=== PATIENT | male | born 1965 | race American Indian/Alaskan Native ===

== ENCOUNTER 2017-08-01 00:40 | Inpatient (IN) | payer OTHER ==
[2017-08-01] MEDS ORDERED: HEPARIN 10,000 UNITS/10 ML IV ONE (00:45)
[2017-08-01] MEDS ORDERED: PLAVIX PO ONE (00:45)
[2017-08-01] MEDS ORDERED: PLAVIX ONE ×3 (00:50→02:10)
--- NOTE | 2017-08-01 00:50 | Emergency Department Report ---
HPI - General Chief Complaint: Chest Pain Time Seen by Provider: 08/01/17 00:45 - HPI HPI: 51-year-old -[place] male presents to the ED with chest pain, he described his chest pain, onset 1 hour prior to evaluation while at rest, Location: Left-sided, Radiation: none, Severity now (0-10): 10, Severity at worst (0-10): 10 Duration: 5 minutes characterized as: Pressure. The pain is relieved some with aspirin and nitroglycerin and his pain is currently a 5 out of 10. Patient denies exertional pain, patient denies pleuritic pain. Patient also complains of associated symptoms, such as nausea, diaphoresis, shortness of breath, but no vomiting. Patient has a history of hypertension, hyperlipidemia but is noncompliant with medications. ED Past Medical Hx - Family History Family history: hypertension - Social History Smoking Status: Current Every Day Smoker - Medications Home Medications: Home Medications Medication Instructions Recorded Confirmed Last Taken Type No Known Home Medications [No 08/01/17 08/01/17 Unknown History Reported Home Medications] ED Review of Systems ROS: Stated complaint: CP Other details as noted in HPI Physical Exam - Physical Exam Physical Exam: Physical Exam: - General Limitations: No Limitations General appearance: alert, severe distress - Head Head exam: Present: atraumatic, normocephalic - Eye Eye exam: Present: normal appearance - ENT ENT exam: Present: mucous membranes moist - Neck Neck exam: Present: normal inspection - Respiratory Respiratory exam: Present: normal lung sounds bilaterally. Absent: respiratory distress - Cardiovascular Cardiovascular Exam: Present: normal rhythm, normal rate. Absent: systolic murmur, diastolic murmur, rubs, gallop - GI/Abdominal GI/Abdominal exam: Present: soft, normal bowel sounds - Extremities Exam Extremities exam: Present: normal inspection - Back Exam Back exam: Present: normal inspection - Neurological Exam Neurological exam: Present: alert, oriented X3 - Psychiatric Psychiatric exam: normal affect and mood - Skin Skin exam: Present: warm, dry, intact, normal color. Absent: rash ED Course - Reevaluation(s) Reevaluation #1: 08/01/17 06:44 Code STEMI called ED Medical Decision Making - Lab Data Result diagrams: 08/01/17 00:40 08/01/17 00:40 Critical care attestation.: If time is entered above; I have spent that time in minutes in the direct care of this critically ill patient, excluding procedure time. ED Disposition Clinical Impression: Acute myocardial infarction due to right coronary artery occlusion, ST elevation CT (STEMI) Disposition: 09 OP ADMIT IP TO THIS HOSP Is pt being admited?: Yes Does the pt Need Aspirin: Yes Condition: Stable
[2017-08-01 00:56] LABS: Eosinophils % (Auto) 0.2 % (0.0-4.3); Hemoglobin 13.5 gm/dl (11.8-15.2); Mean Corpuscular HGB Conc 32 % (32-34); Mean Corpuscular Hemoglobin 27 pg (28-32); Mean Corpuscular Volume 84 fl (84-94); Platelet Count 309 K/mm3 (140-440); Red Blood Count 5.01 M/mm3 (3.65-5.03); Red Cell Distribution Width 14.2 % (13.2-15.2); White Blood Count 14.1 K/mm3 (4.5-11.0)
[2017-08-01 01:05] LABS: INR 1.08 (0.87-1.13)
[2017-08-01 01:06] LABS: Partial Thromboplastin Time 26.9 Sec. (24.2-36.6)
[2017-08-01] MEDS ORDERED: NACL 0.9% 1000 ML 1,000 ML ONE (01:13)
[2017-08-01] MEDS ORDERED: TRIDIL DRIP 50MG/250ML 0 MG/0 ML BOTTLE ONE (01:19)
[2017-08-01] MEDS ORDERED: HEPARIN/NS 5000 UNIT/500ML(CATH LAB) 1,000 ML IR ONE (01:19)
[2017-08-01] MEDS ORDERED: VERSED ONE (01:19)
[2017-08-01] MEDS ORDERED: SUBLIMAZE ONE (01:20)
[2017-08-01] MEDS ORDERED: CALAN ONE (01:20)
[2017-08-01] MEDS ORDERED: XYLOCAINE 2% INFILTRATI ONE (01:21)
[2017-08-01] MEDS ORDERED: NITROGLYCERIN SYRINGE 3 ML ONE (01:21)
[2017-08-01] MEDS ORDERED: NACL 0.9% 0 ML ONE (01:22)
[2017-08-01] MEDS: HEPARIN 10,000 UNITS/10 ML ONE ×2 (01:28→01:35)
[2017-08-01] MEDS ORDERED: NACL 0.9% 250ML 250 ML ONE (01:34)
[2017-08-01] MEDS ORDERED: REOPRO ONE ×2 (01:34→01:38)
[2017-08-01] MEDS ORDERED: ATROPINE 0.1% (CARDIAC) ONE (01:35)
[2017-08-01] MEDS ORDERED: NEO SYNEPHRINE ONE (01:36)
[2017-08-01] MEDS ORDERED: NACL 0.9% 100 ML ONE (01:36)
[2017-08-01] MEDS ORDERED: CORDARONE IV ONE (01:53)
[2017-08-01 02:05] LABS: Alanine Aminotransferase 58 units/L (7-56); Albumin 4.2 g/dL (3.9-5); Albumin/Globulin Ratio 1.3 %; Alkaline Phosphatase 82 units/L (35-129); Anion Gap 28 mmol/L; Blood Urea Nitrogen 12 mg/dL (9-20); Carbon Dioxide 18 mmol/L (22-30); Chloride 99.2 mmol/L (98-107); Glucose 147 mg/dL (75-100); Potassium 3.7 mmol/L (3.6-5.0); Sodium 141 mmol/L (137-145); Total Protein 7.5 g/dL (6.3-8.2)
[2017-08-01] MEDS ORDERED: ZOFRAN IV PRN (02:10)
[2017-08-01] MEDS ORDERED: ULTRAM PO PRN (02:10)
[2017-08-01] MEDS ORDERED: NORCO 5/325 PO PRN (02:10)
--- NOTE | 2017-08-01 02:21 | History and Physical Report ---
History of Present Illness Date of examination: 08/01/17 Date of admission: 08/01/2017 Chief complaint: chest pain History of present illness: This is a 51-year-old -[place] male with history of smoking who presented with chest pain starting around 11:00 after argument with the neighbor patient said the pain was pressure-like radiating down to left arm with mild nausea no vomiting mild diaphoresis EMS was called showed an acute inferior wall OK patient was taken back to the cardiac [facility] for emergent PCI patient received heparin and Plavix nitroglycerin patient had successful PCI of the mid RCA with a drug-eluting resolution 3.5 x 15 mm with normal function patient is currently chest pain-free. During intervention patient did have V. fib and was shocked 3 times and received a amiodarone bolus Past History Past Medical History: denies: No medical history Past Surgical History: Other (right hand surgery after accident at work) Social history: smoking. denies: alcohol abuse, prescription drug abuse Family history: denies: no significant family history Medications and Allergies Allergies Allergy/AdvReac Type Severity Reaction Status Date / Time No Known Allergies Allergy Unverified 08/01/17 00:41 Home Medications Medication Instructions Recorded Confirmed Last Taken Type No Known Home Medications [No 08/01/17 08/01/17 Unknown History Reported Home Medications] Review of Systems All systems: negative (except HPI) Physical Examination Vital Signs Pulse BP Pulse Ox 47 L 113/69 98 08/01/17 00:41 08/01/17 00:41 08/01/17 00:41 General appearance: mild distress HEENT: Positive: PERRL, Mucus Membranes Moist Neck: Positive: neck supple, trachea midline Cardiac: Positive: Reg Rate and Rhythm, S1/S2, Audible Murmur Lungs: Positive: clear to auscultation, Normal Breath Sounds Neuro: Positive: Grossly Intact Abdomen: Positive: Soft, Active Bowel Sounds. Negative: Tender, Distended Male genitourinary: Positive: normal Skin: Positive: Clear Incision: Cardiac Cath Site (right radial dressing no hematoma) Musculoskeletal: No Pain, Normal Range of Motion Extremities: Present: normal. Absent: edema Results 08/01/17 00:40 08/01/17 00:40 Cardiac Enzymes 08/01/17 Range/Units 00:40 AST 49 H (5-40) units/L Coagulation 08/01/17 Range/Units 00:40 PT 13.9 (12.2-14.9) Sec. INR 1.08 (0.87-1.13) APTT 26.9 (24.2-36.6) Sec. CBC 08/01/17 Range/Units 00:40 WBC 14.1 H (4.5-11.0) K/mm3 RBC 5.01 (3.65-5.03) M/mm3 Hgb 13.5 (11.8-15.2) gm/dl Hct 42.0 (35.5-45.6) % Plt Count 309 (140-440) K/mm3 Lymph # 2.5 (1.2-5.4) K/mm3 [place] # 0.5 (0.0-0.8) K/mm3 Eos # 0.0 (0.0-0.4) K/mm3 Baso # 0.1 (0.0-0.1) K/mm3 Comprehensive Metabolic Panel 08/01/17 Range/Units 00:40 Sodium 141 (137-145) mmol/L Potassium 3.7 (3.6-5.0) mmol/L Chloride 99.2 (98-107) mmol/L Carbon Dioxide 18 L (22-30) mmol/L BUN 12 (9-20) mg/dL Creatinine 1.5 (0.8-1.5) mg/dL Glucose 147 H (75-100) mg/dL Calcium 9.0 (8.4-10.2) mg/dL AST 49 H (5-40) units/L ALT 58 H (7-56) units/L Alkaline Phosphatase 82 (35-129) units/L Total Protein 7.5 (6.3-8.2) g/dL Albumin 4.2 (3.9-5) g/dL - Imaging and Cardiology Cardiac cath: report reviewed (left main patent LAD large Are patent with mild luminal irregularities diagonal one small patent circumflex medium caliber patent with mild GERD is going to OM1 onto which are small to being caliber patent RCA is a large dominant vessel mid 100% had a PCI of the mid RCA with drug-eluting was 3.5 x 15 mm at 20 rupa with normal LV function) EKG interpretations - Telemetry EKG Rhythm: Sinus Bradycardia (sinus bradycardia with ST elevations inferiorly with reciprocal changes posteriorly) Assessment and Plan This a 51-year-old gentleman acute myocardial infarction requiring PCI of the mid RCA drug-eluting stent 3 5 x 50 mm patient will be on aspirin and Plavix ReoPro and IV fluids patient is not on ranjith inhibitors or beta blockers secondary low blood pressure patient was shocked 3 times for V. fib arrest and given amiodarone bolus patient be monitored for arrhythmias patient replaced in CCU post-PCI care and DC radial dressing in 4 hours - Patient Problems (1) Acute myocardial infarction due to right coronary artery occlusion Current Visit: Yes Status: Acute (2) Acute diastolic heart failure Current Visit: Yes Status: Acute (3) Smoker Current Visit: Yes Status: Chronic (4) Hyperlipidemia Current Visit: Yes Status: Chronic Qualifiers: Hyperlipidemia type: mixed hyperlipidemia Qualified Code(s): E78.2 - Mixed hyperlipidemia (5) Acute respiratory failure Current Visit: Yes Status: Acute Qualifiers: Respiratory failure complication: hypoxia Qualified Code(s): J96.01 - Acute respiratory failure with hypoxia
[2017-08-01] MEDS ORDERED: NACL 0.9% 1000 ML 1,000 ML IV SCH (03:00)
[2017-08-01] MEDS ORDERED: REOPRO 9 MG in NACL 0.9% 250ML 245.5 ML IV SCH (03:00)
--- NOTE | 2017-08-01 03:07 | Cardiac Catherization Report ---
LEFT HEART CATHETERIZATION/PERCUTANEOUS INTERVENTIONAL REPORT CLINICAL INFORMATION: This is a 51-year-old gentleman who is a smoker, who presents with acute chest pain. EKG shows acute inferior wall VA. The patient was brought emergently back to the cardiac laborer beam house. Cardiac cath was done via the right radial approach, sterile technique, local anesthesia over 6-Emirati radial sheath inserted. Left system was engaged. PROCEDURE FINDINGS: Left system engaged with JL3.5 catheter. Left main is large caliber vessels that are patent. LAD is a large caliber vessel, it is patent with mild luminal irregularities from proximally and distally. Diagonal 1 is a small caliber vessel and is patent. Circumflex is a medium caliber vessel, is patent with mild luminal irregularities, bifurcates into a small to medium caliber. OM1 and OM2 are patent with mild to moderate luminal irregularities. RCA engaged with JR4 catheter. It has a high anterior takeoff with moderate to severe tortuosity, large caliber, proximal patent mid 100% right after small RV branch. PERCUTANEOUS CORONARY INTERVENTION OF THE RCA: 1. Engaged RCA with 6-Emirati AR mod catheter. 2. Crossed into the distal RCA with a short Langley wire. 3. Predilated with 2.5 x 12 mm balloon x 2 inflations restoring DANIELLE 3 flow. The patient went into V-fib and was shocked 3 times given amiodarone bolus. The patient maintained DANIELLE 3 flow, but there was heavy thrombus burden. ReoPro was given and IV heparin was used to maintain adequate ACT. 4. Unable to deliver a thrombectomy device secondary to guide support and also tortuosity of vessels. I used the 2.5 x 12 balloon to mechanically disrupt the thrombus. 5. Then stented the mid RCA with a drug-eluting Resolute 3.5 x 15 mm inflated at 20 atmospheres. 6. Excellent angiographic result. Continued DANIELLE 3 flow and no thrombus noted in the RCA or the PLV, mild thrombus noted into the PDA that was ballooned further with 2.5 x 12 balloon. 7. Residual thrombus was noted to the PDA, but continued maintained DANIELLE 3 flow. 8. Remove coronary wire. Multiple angiograms with excellent angiographic result. Good stent apposition and expansion noted. No dissection or perforation noted. 9. A 6-Emirati guiding catheter taken over guidewire, 6-Emirati radial sheath was discontinued. Radial dressing applied. No hematoma. No bleeding. The patient is chest pain free at the end of the case. SUMMARY: 1. Successful PCI of the mid RCA with a drug-eluting Resolute 3.5 x 15 mm at 20 atmospheres, thrombus burden was noted, unable to use thrombectomy device secondary to tortuosity, had mechanical with the balloon. The patient also received 300 mg Plavix prior to the case and 300 mg Plavix afterwards and Reopro for 12 hours. 2. Left main patent, LAD patent with mild luminal irregularities and circumflex and OM, patent with mild luminal irregularities. 3. Normal LV function. EF 55%. LVEDP of 26 mmHg, LV is 105. Aortic is 105/61. No significant gradient across the aortic valve on pullback. The patient will be admitted to the CCU for further care on Reopro and IV fluids. JOB# [id number] XUAN/COBY
[2017-08-01] MEDS ORDERED: LOPRESSOR PO SCH (10:00)
--- NOTE | 2017-08-01 10:43 | Progress Note ---
Assessment and Plan Obtain Magnesium level. Initiate beta av therapy. - Patient Problems (1) ST elevation [place] (STEMI) Current Visit: Yes Status: Acute Qualifiers: Involved coronary artery: right coronary artery Qualified Code(s): I21.11 - ST elevation (STEMI) myocardial infarction involving right coronary artery (2) Stented coronary artery Current Visit: Yes Status: Acute (3) NSVT (nonsustained ventricular tachycardia) Current Visit: Yes Status: Acute (4) CAD (coronary artery disease) Current Visit: Yes Status: Acute Qualifiers: Coronary Disease-Associated Artery/Lesion type: [place] artery [place] vs. transplanted heart: N Associated angina: A Subjective Date of service: 08/01/17 Principal diagnosis: Acute STEMI, CAD, s/p PCI, s/p Vfib arrest, NSVT Interval history: No chest pain. He had a run of nonsustained VT this morning. Objective Vital Signs Vital Signs Last Vital Signs Temp 98.5 F 08/01/17 07:38 Pulse 81 08/01/17 09:30 Resp 18 08/01/17 09:30 BP 143/97 08/01/17 09:30 Pulse Ox 98 08/01/17 09:30 - Physical Examination General: No Apparent Distress HEENT: Positive: EOMI, Normocephaly, Mucus Membranes Moist Neck: Positive: neck supple, trachea midline Cardiac: Positive: Reg Rate and Rhythm, S1/S2 Lungs: Positive: clear to auscultation Neuro: Positive: Grossly Intact Abdomen: Positive: Soft, Active Bowel Sounds. Negative: Tender, Distended Skin: Positive: Clear Incision: Cardiac Cath Site (right radial dressing no hematoma) Musculoskeletal: Normal Range of Motion Extremities: Present: normal. Absent: edema - Imaging and Cardiology Cardiac cath: report reviewed (left main patent LAD large Are patent with mild luminal irregularities diagonal one small patent circumflex medium caliber patent with mild GERD is going to OM1 onto which are small to being caliber patent RCA is a large dominant vessel mid 100% had a PCI of the mid RCA with drug-eluting was 3.5 x 15 mm at 20 rupa with normal LV function)
[2017-08-01 10:59] LABS: Basophils % (Auto) 0.4 % (0.0-1.8); Hematocrit 40.4 % (35.5-45.6); Hemoglobin 12.9 gm/dl (11.8-15.2); Mean Corpuscular HGB Conc 32 % (32-34); Mean Corpuscular Hemoglobin 26 pg (28-32); Mean Corpuscular Volume 83 fl (84-94); Platelet Count 286 K/mm3 (140-440); Red Blood Count 4.88 M/mm3 (3.65-5.03); Red Cell Distribution Width 14.5 % (13.2-15.2); White Blood Count 18.8 K/mm3 (4.5-11.0)
--- NOTE | 2017-08-01 11:04 | Consultation ---
History of Present Illness - Reason for Consult Consult date: 08/01/17 STEMI, ICU care Requesting physician: PAULIE KENNEY Past History Past Medical History: denies: No medical history Past Surgical History: Other (right hand surgery after accident at work) Social history: smoking. denies: alcohol abuse, prescription drug abuse Family history: denies: no significant family history Medications and Allergies Allergies Allergy/AdvReac Type Severity Reaction Status Date / Time No Known Allergies Allergy Unverified 08/01/17 00:41 Home Medications Medication Instructions Recorded Confirmed Last Taken Type No Known Home Medications [No 08/01/17 08/01/17 Unknown History Reported Home Medications] Active Meds: Active Medications Acetaminophen/Hydrocodone Bitart ([place] 5/325) 1 each PO Q6H PRN PRN Reason: Pain, Moderate (4-6) Aspirin (Baby Aspirin) 81 mg PO QDAY MURALI Atorvastatin Calcium (Lipitor) 80 mg PO QHS MURALI Clopidogrel Bisulfate (Plavix) 75 mg PO QDAY MURALI Abciximab 9 mg/ Sodium (Chloride) 250 mls @ 16.06 mls/hr IV DIRECT MURALI; 0.125 MCG/KG/MIN PRN Reason: Protocol Stop: 08/01/17 14:59 Sodium Chloride (Nacl 0.9% 1000 Ml) 1,000 mls @ 100 mls/hr IV DIRECT MURALI Stop: 08/01/17 12:59 Last Admin: 08/01/17 03:32 Dose: 100 mls/hr Metoprolol Tartrate (Lopressor) 25 mg PO Q6H MURALI Ondansetron HCl (Zofran) 4 mg IV Q8H PRN PRN Reason: N/V unrelieved by Reglan Tramadol HCl (Ultram) 50 mg PO Q4H PRN PRN Reason: Pain, Mild (1-3) Exam - Constitutional Vitals: Temp Pulse Resp BP Pulse Ox 98.5 F 81 18 143/97 98 08/01/17 07:38 08/01/17 09:30 08/01/17 09:30 08/01/17 09:30 08/01/17 09:30 Results - Labs CBC & Chem 7: 08/02/17 04:05 08/02/17 04:05 Labs: Abnormal lab results 08/01/17 Range/Units 10:42 WBC 18.8 H (4.5-11.0) K/mm3 MCV 83 L (84-94) fl MCH 26 L (28-32) pg Lymph % (Auto) 12.1 L (13.4-35.0) % [place] # 1.0 H (0.0-0.8) K/mm3 Seg Neutrophils % 82.4 H (40.0-70.0) % Seg Neutrophils # 15.5 H (1.8-7.7) K/mm3 Assessment and Plan 51 y/o male with STEMI, status post GAIL, now with arrhythmia 1. Follow up cardiology recs 2. Continue ICU monitoring 3. Will ask cards about BB therapy.
[2017-08-01] MEDS: BABY ASPIRIN PO SCH (11:43)
[2017-08-01] MEDS: LOPRESSOR PO SCH (11:43)
[2017-08-02] MEDS: LOPRESSOR PO SCH ×5 (03:16→21:04)
[2017-08-02 05:07] LABS: Basophils % (Auto) 0.9 % (0.0-1.8); Eosinophils % (Auto) 1.8 % (0.0-4.3); Hemoglobin 13.1 gm/dl (11.8-15.2); Mean Corpuscular HGB Conc 33 % (32-34); Mean Corpuscular Hemoglobin 27 pg (28-32); Mean Corpuscular Volume 83 fl (84-94); Platelet Count 270 K/mm3 (140-440); Red Blood Count 4.85 M/mm3 (3.65-5.03); Red Cell Distribution Width 14.3 % (13.2-15.2); White Blood Count 11.2 K/mm3 (4.5-11.0)
[2017-08-02 05:22] LABS: Creatine Kinase MB 175.4 ng/mL (0.0-4.0)
[2017-08-02 05:25] LABS: Alanine Aminotransferase 97 units/L (7-56); Albumin 3.7 g/dL (3.9-5); Albumin/Globulin Ratio 1.2 %; Alkaline Phosphatase 80 units/L (35-129); Anion Gap 19 mmol/L; BUN/Creatinine Ratio 12.72; Blood Urea Nitrogen 14 mg/dL (9-20); Calcium 8.6 mg/dL (8.4-10.2); Carbon Dioxide 22 mmol/L (22-30); Chloride 101.8 mmol/L (98-107); Glucose 115 mg/dL (75-100); Potassium 3.6 mmol/L (3.6-5.0); Sodium 139 mmol/L (137-145); Total Protein 6.8 g/dL (6.3-8.2)
[2017-08-02 05:37] LABS: Creatine Kinase 3425 units/L (55-170)
[2017-08-02 06:02] LABS: Cholesterol 199 mg/dL (50-199); HDL Cholesterol 39 mg/dL (40-59); LDL Cholesterol,Direct 121 mg/dL (50-130); Triglycerides 196 mg/dL (2-149)
--- NOTE | 2017-08-02 07:56 | XRay Report ---
AP CHEST: HISTORY: chest pain, recent cardiac catheterization AP view of the chest demonstrates a normal mediastinal and cardiac contour with clear lungs and normal bony and soft tissue structures. IMPRESSION: Unremarkable AP chest.
[2017-08-02 09:28] LABS: Creatine Kinase MB 112.3 ng/mL (0.0-4.0)
[2017-08-02] MEDS: BABY ASPIRIN PO SCH (10:37)
[2017-08-02] MEDS: PLAVIX PO SCH (10:37)
--- NOTE | 2017-08-02 10:52 | Progress Note ---
Assessment and Plan Transfer to telemetry unit. Continue current management. - Patient Problems (1) ST elevation [place] (STEMI) Current Visit: Yes Status: Acute Qualifiers: Involved coronary artery: right coronary artery Qualified Code(s): I21.11 - ST elevation (STEMI) myocardial infarction involving right coronary artery (2) Stented coronary artery Current Visit: Yes Status: Acute (3) NSVT (nonsustained ventricular tachycardia) Current Visit: Yes Status: Acute (4) CAD (coronary artery disease) Current Visit: Yes Status: Acute Qualifiers: Coronary Disease-Associated Artery/Lesion type: [place] artery [place] vs. transplanted heart: N Associated angina: A Subjective Date of service: 08/02/17 Principal diagnosis: Acute STEMI, CAD, s/p PCI, s/p Vfib arrest, NSVT Interval history: He had mild chest pain with coughing this morning. He mentioned a tinge of blood in the sputum. Objective Vital Signs Last Vital Signs Temp 97.9 F 08/02/17 04:00 Pulse 65 08/02/17 10:36 Resp 13 08/02/17 08:00 BP 116/70 08/02/17 10:36 Pulse Ox 99 08/02/17 08:00 - Physical Examination General: No Apparent Distress HEENT: Positive: EOMI, Normocephaly, Mucus Membranes Moist Neck: Positive: neck supple, trachea midline Cardiac: Positive: Reg Rate and Rhythm, S1/S2 Lungs: Positive: clear to auscultation Neuro: Positive: Grossly Intact Abdomen: Positive: Soft, Active Bowel Sounds. Negative: Tender, Distended Skin: Positive: Clear. Negative: Rash Incision: Cardiac Cath Site (right radial dressing no hematoma) Musculoskeletal: Normal Range of Motion Extremities: Present: normal. Absent: edema - Labs and Meds Cardiac Enzymes 08/02/17 08/02/17 Range/Units 04:05 08:44 AST 202 H (5-40) units/L CK-MB (CK-2) 175.4 H 112.3 H (0.0-4.0) ng/mL Lipids 08/02/17 Range/Units 04:05 Triglycerides 196 H (2-149) mg/dL Cholesterol 199 (50-199) mg/dL HDL Cholesterol 39 L (40-59) mg/dL Cholesterol/HDL Ratio 5.10 % CBC 09/11/17 09/12/17 Range/Units 10:42 04:05 WBC 18.8 H 11.2 H (4.5-11.0) K/mm3 RBC 4.88 4.85 (3.65-5.03) M/mm3 Hgb 12.9 13.1 (11.8-15.2) gm/dl Hct 40.4 40.0 (35.5-45.6) % Plt Count 286 270 (140-440) K/mm3 Lymph # 2.3 3.3 (1.2-5.4) K/mm3 [place] # 1.0 H 0.8 (0.0-0.8) K/mm3 Eos # 0.0 0.2 (0.0-0.4) K/mm3 Baso # 0.1 0.1 (0.0-0.1) K/mm3 Comprehensive Metabolic Panel 08/02/17 Range/Units 04:05 Sodium 139 (137-145) mmol/L Potassium 3.6 (3.6-5.0) mmol/L Chloride 101.8 (98-107) mmol/L Carbon Dioxide 22 (22-30) mmol/L BUN 14 (9-20) mg/dL Creatinine 1.1 (0.8-1.5) mg/dL Glucose 115 H (75-100) mg/dL Calcium 8.6 (8.4-10.2) mg/dL AST 202 H (5-40) units/L ALT 97 H (7-56) units/L Alkaline Phosphatase 80 (35-129) units/L Total Protein 6.8 (6.3-8.2) g/dL Albumin 3.7 L (3.9-5) g/dL - Imaging and Cardiology Cardiac cath: report reviewed (left main patent LAD large Are patent with mild luminal irregularities diagonal one small patent circumflex medium caliber patent with mild GERD is going to OM1 onto which are small to being caliber patent RCA is a large dominant vessel mid 100% had a PCI of the mid RCA with drug-eluting was 3.5 x 15 mm at 20 rupa with normal LV function) - Telemetry EKG Rhythm: Sinus Rhythm
--- NOTE | 2017-08-02 11:18 | Progress Note ---
Assessment and Plan 51 y/o male with STEMI, status post GAIL, now with arrhythmia, stable 1. Follow up cardiology recs 2. Appears stable for transfer to telemetry Subjective Date of service: 08/02/17 Principal diagnosis: Acute STEMI, CAD, s/p PCI, s/p Vfib arrest, NSVT Interval history: No acute events. No further chest pressure. Still some pain from leads where he was shocked. Had some asymptomatic bradycardia yesterday. Otherwise stable. Objective - Constitutional Vitals: Vital Signs - 12hr 08/01/17 08/01/17 08/02/17 23:31 23:45 00:00 Temperature 97.8 F Pulse Rate 67 67 66 Pulse Rate [ 61 From Monitor] Respiratory 17 17 17 Rate Blood Pressure 126/83 126/83 120/75 O2 Sat by Pulse 98 98 98 Oximetry 08/02/17 08/02/17 08/02/17 00:15 00:31 00:45 Temperature Pulse Rate 65 67 68 Pulse Rate [ From Monitor] Respiratory 17 17 16 Rate Blood Pressure 120/75 120/75 120/75 O2 Sat by Pulse 98 98 97 Oximetry 08/02/17 08/02/17 08/02/17 01:01 01:15 01:31 Temperature Pulse Rate 66 67 69 Pulse Rate [ From Monitor] Respiratory 14 15 18 Rate Blood Pressure 115/66 115/66 115/66 O2 Sat by Pulse 99 97 97 Oximetry 08/02/17 08/02/17 08/02/17 01:45 02:01 02:15 Temperature Pulse Rate 69 67 69 Pulse Rate [ From Monitor] Respiratory 17 12 16 Rate Blood Pressure 115/66 115/66 115/66 O2 Sat by Pulse 97 98 97 Oximetry 08/02/17 08/02/17 08/02/17 02:31 02:45 03:00 Temperature Pulse Rate 64 70 64 Pulse Rate [ From Monitor] Respiratory 13 13 11 L Rate Blood Pressure 115/66 115/66 123/76 O2 Sat by Pulse 98 97 98 Oximetry 08/02/17 08/02/17 08/02/17 03:15 03:16 03:31 Temperature Pulse Rate 66 31 L 63 Pulse Rate [ From Monitor] Respiratory 13 16 Rate Blood Pressure 123/76 123/76 O2 Sat by Pulse 97 97 Oximetry 08/02/17 08/02/17 08/02/17 03:45 04:00 04:15 Temperature 97.9 F Pulse Rate 64 65 63 Pulse Rate [ 55 L From Monitor] Respiratory 15 16 16 Rate Blood Pressure 123/76 108/61 108/61 O2 Sat by Pulse 97 97 97 Oximetry 08/02/17 08/02/17 08/02/17 04:31 04:45 05:00 Temperature Pulse Rate 64 64 62 Pulse Rate [ From Monitor] Respiratory 16 16 15 Rate Blood Pressure 108/61 108/61 103/64 O2 Sat by Pulse 97 98 97 Oximetry 08/02/17 08/02/17 08/02/17 05:15 05:31 05:45 Temperature Pulse Rate 80 79 66 Pulse Rate [ From Monitor] Respiratory 16 Rate Blood Pressure 103/64 108/61 108/61 O2 Sat by Pulse Oximetry 08/02/17 08/02/17 08/02/17 06:01 06:15 06:31 Temperature Pulse Rate 62 61 63 Pulse Rate [ From Monitor] Respiratory 16 12 Rate Blood Pressure 103/64 103/64 103/64 O2 Sat by Pulse Oximetry 08/02/17 08/02/17 08/02/17 06:45 07:01 07:15 Temperature Pulse Rate 62 77 58 L Pulse Rate [ From Monitor] Respiratory 15 12 15 Rate Blood Pressure 103/64 128/89 128/89 O2 Sat by Pulse 97 100 Oximetry 08/02/17 08/02/17 08/02/17 07:31 07:45 08:00 Temperature 97.4 F L Pulse Rate 60 54 L 55 L Pulse Rate [ From Monitor] Respiratory 14 13 13 Rate Blood Pressure 128/89 128/89 118/74 O2 Sat by Pulse 100 100 99 Oximetry 08/02/17 08/02/17 08:11 10:36 Temperature Pulse Rate 55 L 65 Pulse Rate [ From Monitor] Respiratory Rate Blood Pressure 116/70 O2 Sat by Pulse Oximetry General appearance: Present: no acute distress - EENT Eyes: PERRL, EOM intact ENT: hearing intact, clear oral mucosa, dentition normal - Neck Neck: supple, normal ROM - Respiratory Respiratory effort: normal Respiratory: bilateral: CTA - Cardiovascular Rhythm: regular Heart Sounds: Present: S1 & S2 - Labs CBC & Chem 7: 08/02/17 04:05 08/02/17 04:05 Labs: Abnormal lab results 08/02/17 08/02/17 08/02/17 Range/Units 04:05 04:05 08:44 WBC 11.2 H (4.5-11.0) K/mm3 MCV 83 L (84-94) fl MCH 27 L (28-32) pg Glucose 115 H (75-100) mg/dL AST 202 H (5-40) units/L ALT 97 H (7-56) units/L Total Creatine Kinase 3425 H 3035 H (55-170) units/L CK-MB (CK-2) 175.4 H 112.3 H (0.0-4.0) ng/mL CK-MB (CK-2) Rel Index 5.1 H (0-4) Troponin T 4.490 H* D 3.930 H* (0.00-0.029) ng/mL Albumin 3.7 L (3.9-5) g/dL Triglycerides 196 H (2-149) mg/dL HDL Cholesterol 39 L (40-59) mg/dL
[2017-08-02 12:15] LABS: Basophils % (Auto) 1.1 % (0.0-1.8); Eosinophils % (Auto) 2.6 % (0.0-4.3); Hematocrit 39.5 % (35.5-45.6); Hemoglobin 13.1 gm/dl (11.8-15.2); Mean Corpuscular HGB Conc 33 % (32-34); Mean Corpuscular Hemoglobin 27 pg (28-32); Mean Corpuscular Volume 82 fl (84-94); Platelet Count 254 K/mm3 (140-440); Red Blood Count 4.82 M/mm3 (3.65-5.03); Red Cell Distribution Width 14.4 % (13.2-15.2); White Blood Count 10.1 K/mm3 (4.5-11.0)
[2017-08-02 19:46] LABS: Creatine Kinase MB 50.2 ng/mL (0.0-4.0)
[2017-08-03 05:43] LABS: Hematocrit 41.2 % (35.5-45.6); Hemoglobin 13.2 gm/dl (11.8-15.2)
[2017-08-03 08:26] VITALS: BP 117/76
[2017-08-03] MEDS: LOPRESSOR PO SCH (09:45)
[2017-08-03] MEDS: PLAVIX PO SCH (09:45)
[2017-08-03] MEDS: BABY ASPIRIN PO SCH (09:45)
--- NOTE | 2017-08-03 09:51 | Progress Note ---
Assessment and Plan pt has no chest pain and is being discharged, spoke about smoking cessation, compliance with meds importance of asa and plavix. - Patient Problems (1) Acute myocardial infarction due to right coronary artery occlusion Current Visit: Yes Status: Acute (2) Acute diastolic heart failure Current Visit: Yes Status: Acute (3) Smoker Current Visit: Yes Status: Chronic (4) Hyperlipidemia Current Visit: Yes Status: Chronic Qualifiers: Qualified Code(s): E78.2 - Mixed hyperlipidemia (5) Acute respiratory failure Current Visit: Yes Status: Acute Qualifiers: Qualified Code(s): J96.01 - Acute respiratory failure with hypoxia Subjective Date of service: 08/03/17 Principal diagnosis: Acute STEMI, CAD, s/p PCI, s/p Vfib arrest, NSVT Interval history: pt is chest pain free Objective Vital Signs Temp Pulse Resp Resp BP Pulse Ox 08/03/17 09:45 71 117/76 08/03/17 08:23 98.0 F 71 18 117/76 97 08/03/17 04:54 98.8 F 67 19 130/76 97 08/03/17 00:25 98.5 F 67 22 114/70 94 08/02/17 22:00 63 08/02/17 19:27 98.4 F 69 18 118/77 96 08/02/17 16:09 98.4 F 56 L 16 109/71 100 08/02/17 13:00 56 L 114/69 93 08/02/17 12:51 56 L 11 L 117/74 100 08/02/17 12:00 97.8 F 57 L 11 L 117/74 88 08/02/17 11:00 68 13 116/72 91 08/02/17 10:36 65 116/70 08/02/17 10:00 63 13 12 116/70 98 - Physical Examination General: No Apparent Distress HEENT: Positive: EOMI, Normocephaly, Mucus Membranes Moist Neck: Positive: neck supple, trachea midline Cardiac: Positive: Reg Rate and Rhythm Lungs: Positive: clear to auscultation Neuro: Positive: Grossly Intact Abdomen: Positive: Soft, Active Bowel Sounds. Negative: Tender, Distended Skin: Positive: Clear. Negative: Rash Incision: Cardiac Cath Site (right radial dressing no hematoma) Musculoskeletal: Normal Range of Motion Extremities: Present: normal. Absent: edema - Labs and Meds Cardiac Enzymes 08/02/17 Range/Units 19:09 CK-MB (CK-2) 50.2 H (0.0-4.0) ng/mL CBC 08/02/17 08/03/17 Range/Units 11:51 05:02 WBC 10.1 (4.5-11.0) K/mm3 RBC 4.82 (3.65-5.03) M/mm3 Hgb 13.1 13.2 (11.8-15.2) gm/dl Hct 39.5 41.2 (35.5-45.6) % Plt Count 254 261 (140-440) K/mm3 Lymph # 2.7 (1.2-5.4) K/mm3 [place] # 0.8 (0.0-0.8) K/mm3 Eos # 0.3 (0.0-0.4) K/mm3 Baso # 0.1 (0.0-0.1) K/mm3 - Imaging and Cardiology Echo: report reviewed Cardiac cath: report reviewed (left main patent LAD large Are patent with mild luminal irregularities diagonal one small patent circumflex medium caliber patent with mild GERD is going to OM1 onto which are small to being caliber patent RCA is a large dominant vessel mid 100% had a PCI of the mid RCA with drug-eluting was 3.5 x 15 mm at 20 rupa with normal LV function) - Telemetry EKG Rhythm: Sinus Rhythm (no vtach)
--- NOTE | 2017-08-03 09:51 | Progress Note ---
Assessment and Plan Currently stable cardiac status. Pt may discharge home on current regimen, including ASA, plavix, statin and lopressor. Follow up in our [place] office with Dr. Baugh on 08/15/2017 @ 9:15AM. The patient has been seen in conjunction with Dr. Baugh who agrees with the assessment and plan of care. - Patient Problems (1) ST elevation [place] (STEMI) Current Visit: Yes Status: Acute Qualifiers: Involved coronary artery: right coronary artery Qualified Code(s): I21.11 - ST elevation (STEMI) myocardial infarction involving right coronary artery (2) Stented coronary artery Current Visit: Yes Status: Acute (3) NSVT (nonsustained ventricular tachycardia) Current Visit: Yes Status: Acute (4) CAD (coronary artery disease) Current Visit: Yes Status: Acute Qualifiers: Coronary Disease-Associated Artery/Lesion type: [place] artery [place] vs. transplanted heart: N Associated angina: A Subjective Date of service: 08/03/17 Principal diagnosis: Acute STEMI, CAD, s/p PCI, s/p Vfib arrest, NSVT Interval history: no complaints. VSS. Objective Last Vital Signs Temp 98.0 F 08/03/17 08:23 Pulse 71 08/03/17 09:45 Resp 18 08/03/17 08:23 BP 117/76 08/03/17 09:45 Pulse Ox 97 08/03/17 08:23 - Physical Examination General: No Apparent Distress HEENT: Positive: EOMI, Normocephaly, Mucus Membranes Moist Neck: Positive: neck supple, trachea midline Cardiac: Positive: Reg Rate and Rhythm, S1/S2 Lungs: Positive: clear to auscultation Neuro: Positive: Grossly Intact Abdomen: Positive: Soft, Active Bowel Sounds. Negative: Tender, Distended Skin: Positive: Clear. Negative: Rash Incision: Cardiac Cath Site (right radial dressing no hematoma) Musculoskeletal: Normal Range of Motion Extremities: Present: normal. Absent: edema - Labs and Meds Cardiac Enzymes 08/02/17 Range/Units 19:09 CK-MB (CK-2) 50.2 H (0.0-4.0) ng/mL CBC 08/02/17 08/03/17 Range/Units 11:51 05:02 WBC 10.1 (4.5-11.0) K/mm3 RBC 4.82 (3.65-5.03) M/mm3 Hgb 13.1 13.2 (11.8-15.2) gm/dl Hct 39.5 41.2 (35.5-45.6) % Plt Count 254 261 (140-440) K/mm3 Lymph # 2.7 (1.2-5.4) K/mm3 [place] # 0.8 (0.0-0.8) K/mm3 Eos # 0.3 (0.0-0.4) K/mm3 Baso # 0.1 (0.0-0.1) K/mm3 - Imaging and Cardiology Echo: report reviewed (EF 50-55%, mild MR, mild TR) Cardiac cath: report reviewed (left main patent LAD large Are patent with mild luminal irregularities diagonal one small patent circumflex medium caliber patent with mild GERD is going to OM1 onto which are small to being caliber patent RCA is a large dominant vessel mid 100% had a PCI of the mid RCA with drug-eluting was 3.5 x 15 mm at 20 rupa with normal LV function)
--- NOTE | 2017-08-03 10:44 | Discharge Summary ---
Providers - Providers Date of Admission: 08/01/17 02:10 Date of discharge: 08/03/17 Attending physician: PAULIE BAUGH Pulmonary/CCU Primary care physician: [employer] Hospitalization Condition: Stable Hospital course: Pt presented on 08/01/2017 with c/o chest pain. He was diagnosed with acute inferior STEMI and [facility] coronary angiography. He underwent LHC with successful PCI of RCA. Post-STEMI echo showed normal LV function with basal inferiolateral, basal inferior, mid inferolateral, and apical lateral wall hypokinesis. Pt remained clinically and hemodynamically stable throughout his recovery and is cleared for discharge home today. Pt may discharge home on current regimen, including ASA, plavix, statin and lopressor. Follow up in our [place] office with Dr. Baugh on 08/15/2017 @ 9:15AM. Disposition: DC-01 TO HOME OR SELFCARE - Discharge Diagnoses (1) ST elevation [place] (STEMI) Status: Acute Qualifiers: Involved coronary artery: right coronary artery Qualified Code(s): I21.11 - ST elevation (STEMI) myocardial infarction involving right coronary artery (2) CAD (coronary artery disease) Status: Chronic Qualifiers: Coronary Disease-Associated Artery/Lesion type: [place] artery [place] vs. transplanted heart: N Associated angina: A (3) Stented coronary artery Status: Acute (4) NSVT (nonsustained ventricular tachycardia) Status: Acute (5) Smoker Status: Chronic (6) Hyperlipidemia Status: Chronic Qualifiers: Hyperlipidemia type: mixed hyperlipidemia Qualified Code(s): E78.2 - Mixed hyperlipidemia Core Measure Documentation - Palliative Care Palliative Care/ Comfort Measures: Not Applicable - Core Measures Any of the following diagnoses?: acute [place] - Acute TX Discharge Requirements Aspirin at discharge: Yes DANIELLE/ARB for LVSD if EF <40%: Not Applicable Beta av at discharge: Yes Statin for LDL = or >100 mg/dl on DC: Yes Exam - Constitutional Vitals: Temp Pulse Resp BP Pulse Ox 98.0 F 71 18 117/76 97 08/03/17 08:23 08/03/17 09:45 08/03/17 08:23 08/03/17 09:45 08/03/17 08:23 General appearance: Present: no acute distress - EENT Eyes: Present: PERRL, EOM intact ENT: hearing intact, clear oral mucosa, dentition normal - Neck Neck: Present: supple, normal ROM - Cardiovascular Rhythm: regular Heart Sounds: Present: S1 & S2 - Extremities Extremities: no ischemia, pulses intact, pulses symmetrical, No edema, normal temperature, normal color Peripheral Pulses: within normal limits - Abdominal General gastrointestinal: Present: soft, non-tender - Integumentary Integumentary: Present: clear, warm, dry - Musculoskeletal Musculoskeletal: strength equal bilaterally - Psychiatric Psychiatric: appropriate mood/affect Plan Activity: advance as tolerated Diet: low fat, low cholesterol, low salt Wound: open to air, keep clean and dry, per your surgeon's advice Follow up with: PRIMARY CARE, [Primary Care Provider] - 7 Days PAULIE BAUGH MD [Staff Physician] - 7 Days ( Follow up in our [place] office with Dr. Baugh on 08/15/2017 @ 9:15AM) Prescriptions: Pravastatin (Nf) [Pravachol] 80 mg PO QHS #60 tablet Clopidogrel [Plavix] 75 mg PO QDAY #30 tablet Metoprolol [Lopressor TAB] 25 mg PO BID #60 tablet
== END 2017-08-03 12:10 | disposition home or self-care (01) | DRG 246 ==
LOC: ED 00:40 → CC1 02:10 → 4A 08-02 13:22
PROVIDERS: ADMIT Internal Medicine; ATTEND Internal Medicine
PROC: 4A023N7 Measurement of Cardiac Sampling and Pressure, Left Heart, Percutaneous Approach (ICD-10-PCS; principal; 2017-08-01)
PROC: 027034Z Dilation of Coronary Artery, One Artery with Drug-eluting Intraluminal Device, Percutaneous Approach (ICD-10-PCS; 2017-08-01)
PROC: B2111ZZ Fluoroscopy of Multiple Coronary Arteries using Low Osmolar Contrast (ICD-10-PCS; 2017-08-01)
DX: I21.19 ST elevation (STEMI) myocardial infarction involving other coronary artery of inferior wall (principal); I50.31 Acute diastolic (congestive) heart failure; J96.00 Acute respiratory failure, unspecified whether with hypoxia or hypercapnia; I47.2 Ventricular tachycardia; I25.10 Atherosclerotic heart disease of native coronary artery without angina pectoris; F17.200 Nicotine dependence, unspecified, uncomplicated; E78.5 Hyperlipidemia, unspecified; Z71.6 Tobacco abuse counseling
CPT/HCPCS: 36415; 71010; 80053; 80061; 82550; 82553; 83735; 84484; 85014; 85018; 85025; 85049; 85347; 85610; 85730; 86850; 86900; 86901; 92941; 93005; 93010; 93306; 93458; 94760; 96374; 99406; A9270-GY; C1725; C1769; C1874; C1887; C1894; C9606; J0130; J0282; J0461; J1644; J2250; J2370; J3010; J7030; J7050; Q9967

== ENCOUNTER 2018-07-31 19:16 | Inpatient (IN) | payer OTHER ==
[2018-07-31 20:44] LABS: Basophils # (Auto) 0.1 K/mm3 (0.0-0.1); Basophils % (Auto) 1.1 % (0.0-1.8); Eosinophils # (Auto) 0.6 K/mm3 (0.0-0.4); Eosinophils % (Auto) 6.4 % (0.0-4.3); Hematocrit 41.8 % (35.5-45.6); Hemoglobin 13.6 gm/dl (11.8-15.2); Lymphocytes # (Auto) 3.2 K/mm3 (1.2-5.4); Lymphocytes % (Auto) 31.6 % (13.4-35.0); Mean Corpuscular HGB Conc 32 % (32-34); Mean Corpuscular Hemoglobin 27 pg (28-32); Mean Corpuscular Volume 82 fl (84-94); Monocytes # (Auto) 0.7 K/mm3 (0.0-0.8); Monocytes % (Auto) 6.5 % (0.0-7.3); Platelet Count 352 K/mm3 (140-440); Red Blood Count 5.08 M/mm3 (3.65-5.03); Red Cell Distribution Width 14.7 % (13.2-15.2)
[2018-07-31 21:17] LABS: BUN/Creatinine Ratio 9; Blood Urea Nitrogen 12 mg/dL (9-20); Calcium 9.7 mg/dL (8.4-10.2); Hemolysis Index 23
--- NOTE | 2018-07-31 22:50 | Emergency Department Report ---
ED Chest Pain HPI - General Chief Complaint: Chest Pain Stated Complaint: CHEST PAIN Time Seen by Provider: 07/31/18 21:54 Source: patient, EMS Mode of arrival: Stretcher Limitations: No Limitations - History of Present Illness Initial Comments: Patient is 52 years old male with history of coronary artery disease status post STEMI and August last year. Patient had stents to his right carotid artery. Patient presented to the ER complaining of left sided chest pain, pressure in nature and does not radiate. Patient stated that his pain is similar to when he had before when he had his heart attack. Patient denied any shortness of breath or pleuritic chest pain. Patient stated that symptoms started when he was walking his dog. MD Complaint: chest pain Severity scale (0 -10): 8 - Related Data Previous Rx's Medication Instructions Recorded Last Taken Type Aspirin [Aspirin BABY CHEW TAB] 81 mg PO QDAY tab.chew 08/03/17 Unknown Rx Clopidogrel [Plavix] 75 mg PO QDAY #30 tablet 08/03/17 Unknown Rx Metoprolol [Lopressor TAB] 25 mg PO BID #60 tablet 08/03/17 Unknown Rx Pravastatin [Pravachol] 80 mg PO QHS #60 tablet 08/03/17 Unknown Rx Allergies Allergy/AdvReac Type Severity Reaction Status Date / Time No Known Allergies Allergy Unverified 08/01/17 00:41 Heart Score - HEART Score History: Moderately suspicious EKG: Non-specific Age: 45-65 Risk factors: 1-2 risk factors Troponin: < normal limit HEART Score: 4 - Critical Actions Critical Actions: 4-6 pts:12-16.6% risk of adverse cardiac event. Should be admitted ED Review of Systems ROS: Stated complaint: CHEST PAIN Other details as noted in HPI Comment: All other systems reviewed and negative Constitutional: denies: chills, fever Respiratory: denies: cough, shortness of breath, SOB with exertion Cardiovascular: chest pain. denies: palpitations, dyspnea on exertion Gastrointestinal: denies: abdominal pain, nausea, vomiting, diarrhea, constipation, hematemesis, hematochezia Neurological: denies: headache, weakness, numbness, paresthesias, confusion ED Past Medical Hx - Past Medical History Hx Hypertension: Yes Hx Heart Attack/AMI: Yes - Surgical History Hx Coronary Stent: Yes (x1) - Social History Smoking Status: Never Smoker Substance Use Type: None - Medications Home Medications: Home Medications Medication Instructions Recorded Confirmed Last Taken Type Aspirin [Aspirin BABY CHEW TAB] 81 mg PO QDAY tab.chew 08/03/17 Unknown Rx Clopidogrel [Plavix] 75 mg PO QDAY #30 tablet 08/03/17 Unknown Rx Metoprolol [Lopressor TAB] 25 mg PO BID #60 tablet 08/03/17 Unknown Rx Pravastatin [Pravachol] 80 mg PO QHS #60 tablet 08/03/17 Unknown Rx ED Physical Exam - General Limitations: No Limitations General appearance: alert, in no apparent distress - Head Head exam: Present: atraumatic, normocephalic, normal inspection - Eye Eye exam: Present: normal appearance, PERRL - ENT ENT exam: Present: normal exam, normal orophraynx, mucous membranes moist - Neck Neck exam: Present: normal inspection, full ROM. Absent: tenderness, meningismus, lymphadenopathy, thyromegaly - Respiratory Respiratory exam: Present: normal lung sounds bilaterally. Absent: respiratory distress, wheezes, rales, rhonchi, stridor, chest wall tenderness, accessory muscle use, decreased breath sounds, prolonged expiratory - Cardiovascular Cardiovascular Exam: Present: regular rate, normal rhythm, normal heart sounds - GI/Abdominal GI/Abdominal exam: Present: soft, normal bowel sounds. Absent: distended, tenderness, guarding, rebound, rigid, organomegaly, mass, bruit, pulsatile mass , hernia - Extremities Exam Extremities exam: Present: normal inspection, full ROM, normal capillary refill. Absent: tenderness, pedal edema, calf tenderness - Back Exam Back exam: Present: normal inspection, full ROM. Absent: tenderness, CVA tenderness (R), CVA tenderness (L), muscle spasm, paraspinal tenderness, vertebral tenderness, rash noted - Neurological Exam Neurological exam: Present: alert, oriented X3, CN II-XII intact, normal gait, reflexes normal - Skin Skin exam: Present: warm, intact, normal color ED Course Vital Signs 07/31/18 07/31/18 07/31/18 19:54 22:41 23:17 Temperature 98.1 F 98.2 F Pulse Rate 98 H 94 H 95 H Respiratory 20 17 Rate Blood Pressure 155/102 147/103 Blood Pressure 149/109 [Left] O2 Sat by Pulse 100 99 Oximetry - Reevaluation(s) Reevaluation #1: 08/01/18 00:06 Discussed the patient is Dr. Duque, he advised to admit patient to the hospitalist and he will see patient. ED Medical Decision Making - Lab Data Result diagrams: 07/31/18 20:25 07/31/18 20:25 - EKG Data -: EKG Interpreted by Me EKG shows normal: sinus rhythm Rate: normal - EKG Data Interpretation: no acute changes - Radiology Data Radiology results: report reviewed Referring Physician: FEDERICA DUMONT Patient Name: SIN MCNEIL Date of : 1965 Sex: Male Report Date: 2018-07-31 Report Status: Finalized Findings [facility] [address] [place] [address] XRay Report Signed Patient: SIN MCNEIL MR#: [id number] : 1965 Acct:[id number] Age/Sex: 52 / M ADM Date: 07/31/18 Loc: ED Attending Dr: Ordering Physician: FEDERICA DUMONT Date of Service: 07/31/18 Procedure(s): XR chest 1V ap Accession Number(s): [id number] cc: FEDERICA DUMONT Fluoro Time In Minutes: FINAL REPORT EXAM: XR CHEST 1V AP HISTORY: chest pain TECHNIQUE: AP portable view of the chest PRIORS: None. FINDINGS: Lines, tubes, and devices: N/A Lungs and pleura: Trachea is normal in position. Lungs are clear of infiltrate, pleural effusion, vascular congestion, or pneumothorax. Cardiomediastinal silhouette: Cardiac and mediastinal silhouettes are unremarkable. Other: Bony structures are intact. IMPRESSION: No acute cardiopulmonary process seen. Transcribed By: [facility] Dictated By: KARIS APARICIO MD Electronically Authenticated By: KARIS APARICIO MD Signed Date/Time: 07/31/182254 DD/ 54 TD/TT: 07/31/182254 - Medical Decision Making I discussed the patient was Dr. Vania Jones, she agreed to admit the patient to service. Critical Care Time: Yes Critical care time in (mins) excluding proc time.: 30 Critical care attestation.: If time is entered above; I have spent that time in minutes in the direct care of this critically ill patient, excluding procedure time. ED Disposition Clinical Impression: Acute coronary syndrome, Chest pain, Myocardial infarction, Elevated troponin Disposition: DC-09 OP ADMIT IP TO THIS HOSP Is pt being admited?: Yes Condition: Stable Instructions: Chest Pain (ED)
--- NOTE | 2018-07-31 22:56 | XRay Report ---
FINAL REPORT EXAM: XR CHEST 1V AP HISTORY: chest pain TECHNIQUE: AP portable view of the chest PRIORS: None. FINDINGS: Lines, tubes, and devices: N/A Lungs and pleura: Trachea is normal in position. Lungs are clear of infiltrate, pleural effusion, vascular congestion, or pneumothorax. Cardiomediastinal silhouette: Cardiac and mediastinal silhouettes are unremarkable. Other: Bony structures are intact. IMPRESSION: No acute cardiopulmonary process seen.
[2018-07-31] MEDS ORDERED: NITROSTAT SL ONE (23:05)
[2018-07-31] MEDS ORDERED: ZOFRAN IV ONE (23:41)
[2018-07-31] MEDS ORDERED: MORPHINE IV ONE (23:41)
[2018-08-01 00:04] LABS: Chol/HDL Ratio 6.68 %
[2018-08-01] MEDS ORDERED: HEPARIN 10,000 UNITS/10 ML IV ONE (00:11)
[2018-08-01 00:52] LABS: Hematocrit 39.7 % (35.5-45.6); Hemoglobin 12.7 gm/dl (11.8-15.2)
[2018-08-01] MEDS ORDERED: HEPARIN/ 0.45% NACL-25,000 UNIT/500 ML 25,000 UNIT/500 ML BAG IV SCH (01:00)
[2018-08-01 01:17] LABS: INR 1.03 (0.87-1.13); Partial Thromboplastin Time 24.7 Sec. (24.2-36.6)
[2018-08-01] MEDS ORDERED: ZOFRAN IV PRN (01:45)
[2018-08-01] MEDS ORDERED: MORPHINE IV PRN (01:45)
[2018-08-01] MEDS ORDERED: SODIUM CHLORIDE FLUSH SYRINGE 10 ML IV PRN (01:45)
[2018-08-01] MEDS ORDERED: TYLENOL PO PRN (01:45)
--- NOTE | 2018-08-01 03:14 | History and Physical Report ---
History of Present Illness Date of examination: 08/01/18 Date of admission: 08/01/18 01:45 History of present illness: 52-year-old man with a history of coronary artery disease plus emergency room complaining of chest pain located in the lower substernal area started today. He described the pain as sharp, constant, intensity 6/10, no radiation, he cannot identify exacerbating factor. Admits to nausea, shortness of breath, palpitation Review of systems Constitutional: no weight loss, chills, fever Ears, eyes, nose, mouth and throat: no nasal congestion, no nasal discharge, no sinus pressure, no vision change, no red eye. Neck: No neck pain or rigidity. Cardiovascular: +chest pain, palpitations Respiratory: no cough, shortness of breath Gastrointestinal: no abdominal pain hematochezia Genitourinary : no frequency , no hematuria Musculoskeletal: no joint swelling or muscle ache Integumentary: no rash, no pruritis Neurological: no parathesias, no numbness, no focal weakness Endocrine: no cold or heat intolerance, no polyuria or polydipsia Hematologic/Lymphatic: no easy bruising, no easy bleeding, no gland swelling Allergic/Immunologic: no urticaria, no angioedema. PAST MEDICAL HISTORY: Coronary artery disease PAST SURGICAL HISTORY: Right hand SOCIAL HISTORY: No alcohol, no drugs, tobacco FAMILY HISTORY: Hypertension Medications and Allergies Allergies Allergy/AdvReac Type Severity Reaction Status Date / Time No Known Allergies Allergy Unverified 08/01/17 00:41 Home Medications Medication Instructions Recorded Confirmed Last Taken Type Aspirin [Aspirin BABY CHEW TAB] 81 mg PO QDAY tab.chew 08/03/17 08/01/18 Unknown Rx Clopidogrel [Plavix] 75 mg PO QDAY #30 tablet 08/03/17 08/01/18 Unknown Rx Metoprolol [Lopressor TAB] 25 mg PO BID #60 tablet 08/03/17 08/01/18 Unknown Rx Pravastatin [Pravachol] 80 mg PO QHS #60 tablet 08/03/17 08/01/18 Unknown Rx Active Meds: Active Medications Acetaminophen (Tylenol) 650 mg PO Q4H PRN PRN Reason: Pain MILD(1-3)/Fever >100.5/ADRIAN Clopidogrel Bisulfate (Plavix) 75 mg PO QDAY MURALI Heparin Sodium/Sodium Chloride (Heparin/ 0.45% Nacl-25,000 Unit/500 Ml) 25,000 unit in 500 mls @ 20 mls/hr IV TITRATE MURALI; Protocol Last Admin: 08/01/18 00:55 Dose: 1,000 units/hr, 20 mls/hr Metoprolol Tartrate (Lopressor) 25 mg PO BID MURALI Morphine Sulfate (Morphine) 2 mg IV Q4H PRN PRN Reason: Pain, Moderate (4-6) Ondansetron HCl (Zofran) 4 mg IV Q8H PRN PRN Reason: Nausea And Vomiting Pravastatin Sodium (Pravachol) 80 mg PO QHS MURALI Sodium Chloride (Sodium Chloride Flush Syringe 10 Ml) 10 ml IV BID MURALI Sodium Chloride (Sodium Chloride Flush Syringe 10 Ml) 10 ml IV PRN PRN PRN Reason: LINE FLUSH Exam - Physical Exam Narrative exam: Gen. appearance: Patient lying in bed, no apparent distress HEENT: Normocephalic, atraumatic, pupils equally round and reactive to light, extraocular movement intact, and no sclericterus,. No JVD or thyromegaly or nodule,neck supple, no carotid bruit ,mucous membranes moist, no exudate or erythema Heart: S1, S2, regular rate and rhythm Lungs: Clear bilaterally, breathing comfortable Abdomen: Positive bowel sounds, non-tender, nondistended, no organomegaly Extremity:no edema cyanosis, clubbing Skin: no rash, dry, warm Neuro: Oriented 3, cranial nerves II-12 intact, speech is fluent, motor and sensory intact - Constitutional Vitals: Temp Pulse Resp BP Pulse Ox 98.2 F 88 14 147/101 99 07/31/18 22:41 08/01/18 01:00 08/01/18 01:00 08/01/18 01:00 07/31/18 22:41 Results - Labs CBC & Chem 7: 08/01/18 00:27 07/31/18 20:25 Labs: Abnormal lab results 07/31/18 07/31/18 07/31/18 Range/Units 20:25 20:25 22:56 RBC 5.08 H (3.65-5.03) M/mm3 MCV 82 L (84-94) fl MCH 27 L (28-32) pg Eos % (Auto) 6.4 H (0.0-4.3) % Eos # 0.6 H (0.0-0.4) K/mm3 Glucose 128 H (75-100) mg/dL Troponin T 0.163 H* D (0.00-0.029) ng/mL Triglycerides 224 H (2-149) mg/dL Cholesterol 234 H (50-199) mg/dL LDL Cholesterol Direct 169 H (50-130) mg/dL HDL Cholesterol 35 L (40-59) mg/dL - Imaging and Cardiology EKG: image reviewed Chest x-ray: image reviewed Assessment and Plan Assessment NSTMI CAD Plan Admit to medicine Continue heparin drip, IV morphine Continue Plavix, beta av,ACEI,statin, consult cardiology Check cardiac enzymes, DVT prophylaxis
[2018-08-01 04:07] LABS: Creatine Kinase MB 122.9 ng/mL (0.0-4.0)
[2018-08-01 08:04] LABS: Creatine Kinase MB 354.8 ng/mL (0.0-4.0)
--- NOTE | 2018-08-01 08:25 | Event Note ---
Date: 08/01/18 pt seen ongoing cp elevated trop hx cad. s/p stemi/pci ecg: nsr pvcs nonspec stt changes on iv heparin keep npo discuss with interventionalist re ?cath
[2018-08-01] MEDS ORDERED: NACL 0.9% 500 ML 500 ML IV SCH ×2 (09:00→11:00)
[2018-08-01] MEDS ORDERED: TRIDIL DRIP 50MG/250ML 50 MG/250 ML BOTTLE IV SCH (09:00)
[2018-08-01] MEDS ORDERED: NACL 0.9% 500 ML 500 ML ONE (10:38)
[2018-08-01] MEDS: PLAVIX PO SCH (10:47)
[2018-08-01] MEDS ORDERED: XYLOCAINE 2% INFILTRATI ONE (11:04)
[2018-08-01] MEDS ORDERED: CALAN ONE (11:04)
[2018-08-01] MEDS ORDERED: HEPARIN/NS 5000 UNIT/500ML(CATH LAB) 1,000 ML IR ONE (11:04)
[2018-08-01] MEDS ORDERED: SUBLIMAZE ONE (11:04)
[2018-08-01] MEDS ORDERED: VERSED ONE (11:04)
[2018-08-01] MEDS ORDERED: NITROGLYCERIN SYRINGE 3 ML ONE (11:05)
[2018-08-01] MEDS: HEPARIN 10,000 UNITS/10 ML ONE ×2 (11:32→11:44)
--- NOTE | 2018-08-01 11:38 | Consultation ---
History of Present Illness Consult date: 08/01/18 Requesting physician: FEDERICA DUMONT Consult reason: chest pain, elevated troponin History of present illness: The pt is a 52 YO male with a past medical history significant for CAD s/p STEMI with PCI to mid RCA in 07/2017, HTN, tobacco use. He was seen by our practice in 07/2017 when he underwent C with PCI of RCA per Dr. Baugh for STEMI. He has not followed up since that time. He presented with complaints of chest pain since yesterday evening at 6:30PM. He reports that he was walking his dog when another dog tried to attack his dog and he was trying to intervene when he developed chest pain. He describes the pain as a constant midsternal pressure which radiates into his upper back. The pain is associated with SOB and nausea. He denies any palpitations, vomiting, diaphoresis, dizziness or syncope. Of note, he only took prescription medications (including ASA and Plavix) for 1 month following his STEMI in 07/2017. Echo done 07/2017 showed EF 50-55%, mild MR, mild TR, basal inferolateral, basal inferior, mid inferolateral, mid inferior and apical lateral wall segments hypokinetic. Past History Past Medical History: acute [place], CAD, hypertension Social history: smoking Medications and Allergies Allergies Allergy/AdvReac Type Severity Reaction Status Date / Time No Known Allergies Allergy Unverified 08/01/17 00:41 Home Medications Medication Instructions Recorded Confirmed Last Taken Type Aspirin [Aspirin BABY CHEW TAB] 81 mg PO QDAY tab.chew 08/03/17 08/01/18 Unknown Rx Clopidogrel [Plavix] 75 mg PO QDAY #30 tablet 08/03/17 08/01/18 Unknown Rx Metoprolol [Lopressor TAB] 25 mg PO BID #60 tablet 08/03/17 08/01/18 Unknown Rx Pravastatin [Pravachol] 80 mg PO QHS #60 tablet 08/03/17 08/01/18 Unknown Rx Active Meds: Active Medications Acetaminophen (Tylenol) 650 mg PO Q4H PRN PRN Reason: Pain MILD(1-3)/Fever >100.5/ADRIAN Clopidogrel Bisulfate (Plavix) 75 mg PO QDAY MURALI Last Admin: 08/01/18 10:47 Dose: 75 mg Heparin Sodium/Sodium Chloride (Heparin/ 0.45% Nacl-25,000 Unit/500 Ml) 25,000 unit in 500 mls @ 20 mls/hr IV TITRATE MURALI; Protocol Last Admin: 08/01/18 00:55 Dose: 1,000 units/hr, 20 mls/hr Nitroglycerin/Dextrose (Tridil Drip 50mg/250ml) 50 mg in 250 mls @ 3 mls/hr IV TITR MURALI; Protocol Sodium Chloride (Nacl 0.9% 500 Ml) 500 mls @ 50 mls/hr IV DIRECT MURALI Stop: 08/01/18 18:59 Last Admin: 08/01/18 10:50 Dose: 50 mls/hr Sodium Chloride (Nacl 0.9% 500 Ml) 500 mls @ 50 mls/hr IV DIRECT MURALI Lisinopril (Zestril) 2.5 mg PO QDAY MURALI Metoprolol Tartrate (Lopressor) 25 mg PO BID MURALI Morphine Sulfate (Morphine) 2 mg IV Q4H PRN PRN Reason: Pain, Moderate (4-6) Ondansetron HCl (Zofran) 4 mg IV Q8H PRN PRN Reason: Nausea And Vomiting Pravastatin Sodium (Pravachol) 80 mg PO QHS [facility] Sodium Chloride (Sodium Chloride Flush Syringe 10 Ml) 10 ml IV BID MURALI Sodium Chloride (Sodium Chloride Flush Syringe 10 Ml) 10 ml IV PRN PRN PRN Reason: LINE FLUSH Review of Systems Constitutional: no weight loss, no weight gain, no fever, no chills, no sweats Ears, nose, mouth and throat: no ear pain, no nose pain, no sinus pressure, no sinus pain Cardiovascular: chest pain, shortness of breath, dyspnea on exertion, no orthopnea, no palpitations, no rapid/irregular heart beat, no edema, no syncope , no lightheadedness, no paroxysmal nocturnal dyspnea, no leg edema Respiratory: shortness of breath, dyspnea on exertion, no cough, no congestion, no wheezing, no pain on inspiration Gastrointestinal: nausea, no abdominal pain, no vomiting, no diarrhea, no constipation, no change in bowel habits Genitourinary Male: no dysuria, no hematuria, no flank pain, no discharge, no urinary frequency, no urinary hesitancy Musculoskeletal: no neck stiffness, no neck pain, no shooting arm pain, no arm numbness/tingling, no low back pain Integumentary: no rash, no pruritis, no redness, no sores, no wounds Neurological: no head injury, no paralysis, no weakness, no parathesias, no numbness, no tingling, no seizures, no syncope Psychiatric: no anxiety Endocrine: no cold intolerance, no heat intolerance Hematologic/Lymphatic: no easy bruising, no easy bleeding, no lymphadenopathy Allergic/Immunologic: no urticaria, no wheezing, no persistent infections Physical Examination Vital Signs Temp Pulse Resp BP Pulse Ox 98.1 F 98 H 20 155/102 100 07/31/18 19:54 07/31/18 19:54 07/31/18 19:54 07/31/18 19:54 07/31/18 19:54 General appearance: no acute distress HEENT: Positive: PERRL, Normocephaly, Mucus Membranes Moist Neck: Positive: neck supple, trachea midline Cardiac: Positive: Reg Rate and Rhythm, S1/S2 Lungs: Positive: clear to auscultation Neuro: Positive: Grossly Intact Abdomen: Positive: Soft. Negative: Tender Skin: Positive: Clear. Negative: Rash, Wound Musculoskeletal: No Fluid Collection, No Pain, Normal Range of Motion Extremities: Absent: edema Results 08/01/18 00:27 07/31/18 20:25 Cardiac Enzymes 08/01/18 08/01/18 Range/Units 01:26 06:55 CK-MB (CK-2) 122.9 H 354.8 H (0.0-4.0) ng/mL Coagulation 08/01/18 Range/Units 00:27 PT 14.0 (12.2-14.9) Sec. INR 1.03 (0.87-1.13) APTT 24.7 (24.2-36.6) Sec. Lipids 07/31/18 Range/Units 22:56 Triglycerides 224 H (2-149) mg/dL Cholesterol 234 H (50-199) mg/dL HDL Cholesterol 35 L (40-59) mg/dL Cholesterol/HDL Ratio 6.68 % CBC 07/31/18 08/01/18 Range/Units 20:25 00:27 WBC 10.0 (4.5-11.0) K/mm3 RBC 5.08 H (3.65-5.03) M/mm3 Hgb 13.6 12.7 (11.8-15.2) gm/dl Hct 41.8 39.7 (35.5-45.6) % Plt Count 352 329 (140-440) K/mm3 Lymph # 3.2 (1.2-5.4) K/mm3 [place] # 0.7 (0.0-0.8) K/mm3 Eos # 0.6 H (0.0-0.4) K/mm3 Baso # 0.1 (0.0-0.1) K/mm3 Comprehensive Metabolic Panel 07/31/18 Range/Units 20:25 Sodium 140 (137-145) mmol/L Potassium 3.8 (3.6-5.0) mmol/L Chloride 101.8 (98-107) mmol/L Carbon Dioxide 25 (22-30) mmol/L BUN 12 (9-20) mg/dL Creatinine 1.4 (0.8-1.5) mg/dL Glucose 128 H (75-100) mg/dL Calcium 9.7 (8.4-10.2) mg/dL - Imaging and Cardiology Echo: report reviewed (07/2017 showed EF 50-55%, mild MR, mild TR, basal inferolateral, basal inferior, mid inferolateral, mid inferior and apical lateral wall segments hypokinetic. ) Cardiac cath: report reviewed (08/01/2017: left main patent LAD large Are patent with mild luminal irregularities diagonal one small patent circumflex medium caliber patent with mild GERD is going to OM1 onto which are small to being caliber patent RCA is a large dominant vessel mid 100% had a PCI of the mid RCA with drug-eluting was 3.5 x 15 mm at 20 rupa with normal LV function) EKG: report reviewed, image reviewed EKG interpretations - Telemetry EKG Rhythm: Sinus Rhythm - EKG Sinus rhythms and dysrhythmias: sinus rhythm Repolarization changes or abnormalities: nonspecific abnormality, ST segment, and/or T wave Assessment and Plan Agree with heparin gtt. Initiate nitro gtt. Obtain echo. Coronary angiography recommended. Indications, potential risks and benefits of LHC reviewed with pt and he is agreeable to proceed. Await findings. The patient has been seen in conjunction with Dr. Amato who agrees with the assessment and plan of care. - Patient Problems (1) NSTEMI (non-ST elevated myocardial infarction) Current Visit: Yes Status: Acute (2) CAD (coronary artery disease) Current Visit: Yes Status: Chronic Qualifiers: Coronary Disease-Associated Artery/Lesion type: [place] artery (3) Stented coronary artery Current Visit: Yes Status: Chronic (4) HTN (hypertension) Current Visit: Yes Status: Chronic (5) Smoker Current Visit: Yes Status: Chronic (6) Medical non-compliance Current Visit: Yes Status: Chronic
[2018-08-01] MEDS ORDERED: HEPARIN/NS 5000 UNIT/500ML(CATH LAB) 500 ML IR ONE (11:45)
[2018-08-01] MEDS ORDERED: HEPARIN 10,000 UNITS/10 ML ONE (12:16)
[2018-08-01] MEDS ORDERED: PLAVIX ONE (12:19)
[2018-08-01] MEDS ORDERED: ASPIRIN ONE (12:19)
[2018-08-01] MEDS ORDERED: ALUM-MAG HYDROX-SIMETH 200-200-20MG/5ML ONE (12:20)
--- NOTE | 2018-08-01 13:10 | Cardiac Catherization Report ---
CARDIAC CATHETERIZATION AND CORONARY INTERVENTION REPORT The patient is a 52-year-old gentleman with history of myocardial infarction. On 08/01/2017 underwent intervention of the occluded distal RCA with a drug-eluting stent. Subsequently, he did not have any followup. Presents with chest pain and elevated cardiac enzymes consistent with acute coronary syndrome with non-STEMI. Because of persistent chest pain he was brought to the catheterization lab in an urgent fashion. The patient is aware of the procedure, potential complications and alternatives of therapy available. DESCRIPTION OF PROCEDURE: The patient was brought to the catheterization laboratory in a fasting condition. The right wrist area and forearm thoroughly cleansed with Betadine solution. Sterile drapes were applied. Local anesthesia was achieved using 2% Xylocaine. Local anesthesia was given in the right radial artery area. Right radial artery puncture was made using 21-gauge arterial puncture needle. A 5-Trinidadian slender sheath was introduced. A 5-Trinidadian multipurpose catheter was used to obtain the angiograms of the left coronary artery, right coronary artery, and left ventriculogram done in SAEZ projection using power injector at 24 mL at 8 mL per second. Subsequently, procedure was converted to interventional procedure. Following findings were noted: Aortic pressure 137/96. Left ventricular pressure 138/33. No gradient across the aortic valve. Estimated ejection fraction 25-30%. Left ventriculogram done in SAEZ projection using power injector showed left ventricular size to be mildly dilated. There is severe hypokinesis of the inferior wall with mild diffuse hypokinesis. The EF 25-30%. There are also moderate 2+ to 3+ mitral regurgitation noted. Right coronary artery dominant vessel shows widely patent stent in the mid to distal area. Otherwise only this is dominant vessel and very mild smooth irregularities noted. Left coronary artery arises normally from left coronary cusp. Left main without significant disease. LAD, which curves around the apex and its branches show only mild irregularities. Circumflex artery represent by first obtuse marginal branch, then continues in the AV groove. The first obtuse marginal branch is subtotally occluded at the origin with only faint visualization of the distal vessel. Circumflex artery except this occluded OM the branch in the AV groove without significant disease. Collaterals none. FINAL IMPRESSION: 1. Severe left ventricular dysfunction with ejection fraction 25-30% with moderate mitral regurgitation. 2. Occluded OM1 branch. Otherwise, patent stent in the RCA. Considering non-STEMI and chest pain at rest it was felt the patient would benefit from intervention of this occluded circumflex marginal branch. 3. Interventional procedure of the OM1. The patient has indwelling 6-Trinidadian sheath in the right wrist area and subsequently the patient received extra dose of heparin 70 units per kg. Subsequently, EBU 3.5 guiding catheter was advanced and engaged the left coronary artery. A 0.014 inch [place] XT guidewire was advanced across the marginal branch without much difficulty. Lesion was dilated with 2.5 x 12 mm Euphora balloon few times up to 8 atmospheres, which resulted in DANIELLE 3 flow in the marginal branch. Subsequently, 2.75 x 12 mm Resolute Integrity stent was dilated to 8 atmospheres with very good result. Subtotal occlusion, which is almost 100% is converted to 0% residual stenosis, DANIELLE 3 flow was noted pre and post-procedure. Preprocedure there is zero to almost minimal flow suggesting between DANIELLE 0 and DANIELLE 1 flow. Faint visualization of the distal vessel was noted prior to the procedure, but DANIELLE 3 flow was noted post-procedure. No complications of dissection or perforation or embolization noted. The patient tolerated the procedure well, hemodynamically stable, no significant arrhythmia noted. The patient was evaluated for moderate sedation. Prior to the procedure, he was found to be appropriate candidate. The patient was sedated with IV Versed starting at 12:25 a.m. and he was monitored hemodynamically and with pulse oximetry up to the 12:05 noon time. No untoward complication noted at the end of the procedure. The patient is awake, alert, able to move all the extremities. Communicating well. FINAL IMPRESSION: Uncomplicated balloon angioplasty and drug-eluting stent placement of the ostial lesion of the OM branch. OM is occluded at the ostium. No untoward complications were noted. The patient received 600 mg of p.o. Plavix in addition to 325 mg of aspirin and ACT was found to be 191 seconds and an extra dose of 3000 units of intravenous heparin given. The patient will be monitored in telemetry and radial sheath will be removed subsequently. The patient tolerated procedure well. No untoward complications were noted. JOB# [id number] K/NTS
--- NOTE | 2018-08-01 13:16 | Event Note ---
Date: 08/01/18 s/p [facility] with PCI to OM1, EF 25-30%,moderate MR. Initiate DAPT with ASA and Plavix. Resume home lopressor and statin. Obtain echo. Tx to telemetry. Ruben GILL NP / DR. LE
[2018-08-01] MEDS: LOPRESSOR PO SCH ×2 (16:32→22:25)
[2018-08-01] MEDS: ZESTRIL PO SCH (16:32)
[2018-08-01] MEDS: SODIUM CHLORIDE FLUSH SYRINGE 10 ML IV SCH ×2 (16:32→22:25)
--- NOTE | 2018-08-01 18:42 | Event Note ---
Date: 08/01/18 Patient with chest pain, NSTEMI, taken to cardiac cath today, had PCI to OM1.
[2018-08-01] MEDS ORDERED: PRAVACHOL PO SCH (22:00)
[2018-08-02 06:24] LABS: Basophils # (Auto) 0.1 K/mm3 (0.0-0.1); Basophils % (Auto) 1.5 % (0.0-1.8); Eosinophils # (Auto) 0.5 K/mm3 (0.0-0.4); Hematocrit 41.7 % (35.5-45.6); Hemoglobin 13.6 gm/dl (11.8-15.2); Lymphocytes # (Auto) 1.5 K/mm3 (1.2-5.4); Lymphocytes % (Auto) 16.2 % (13.4-35.0); Mean Corpuscular HGB Conc 33 % (32-34); Mean Corpuscular Hemoglobin 27 pg (28-32); Mean Corpuscular Volume 82 fl (84-94); Monocytes # (Auto) 0.8 K/mm3 (0.0-0.8); Monocytes % (Auto) 8.5 % (0.0-7.3); Platelet Count 281 K/mm3 (140-440); Red Blood Count 5.11 M/mm3 (3.65-5.03); Red Cell Distribution Width 14.6 % (13.2-15.2)
[2018-08-02 06:58] LABS: BUN/Creatinine Ratio 10; Blood Urea Nitrogen 14 mg/dL (9-20); Calcium 8.6 mg/dL (8.4-10.2); Creatine Kinase MB 80.5 ng/mL (0.0-4.0); Hemolysis Index 5
--- NOTE | 2018-08-02 09:21 | XRay Report ---
AP CHEST: HISTORY: Post PCI AP view of the chest demonstrates a normal mediastinal and cardiac contour with clear lungs and normal bony and soft tissue structures. IMPRESSION: Unremarkable AP chest.
[2018-08-02] MEDS ORDERED: BABY ASPIRIN PO SCH (10:00)
[2018-08-02] MEDS: PLAVIX PO SCH (10:14)
[2018-08-02] MEDS: SODIUM CHLORIDE FLUSH SYRINGE 10 ML IV SCH (10:16)
[2018-08-02] MEDS: ZESTRIL PO SCH (10:17)
[2018-08-02] MEDS: LOPRESSOR PO SCH (10:18)
[2018-08-02 10:19] VITALS: BP 120/86
--- NOTE | 2018-08-02 14:28 | Progress Note ---
Assessment and Plan s/p LHC with PCI yesterday. Cont present cardiac regimen. Currently stable cardiac status. Pt may discharge home from cardiology standpoint. Follow up in our [place] office with Dr. Amato on 08/14/2018 @ 8:45AM. The patient has been seen in conjunction with Dr. Amato who agrees with the assessment and plan of care. - Patient Problems (1) NSTEMI (non-ST elevated myocardial infarction) Current Visit: Yes Status: Acute (2) CAD (coronary artery disease) Current Visit: Yes Status: Chronic Qualifiers: Coronary Disease-Associated Artery/Lesion type: [place] artery (3) Stented coronary artery Current Visit: Yes Status: Chronic (4) HTN (hypertension) Current Visit: Yes Status: Chronic (5) Smoker Current Visit: Yes Status: Chronic (6) Medical non-compliance Current Visit: Yes Status: Chronic Subjective Date of service: 08/02/18 Principal diagnosis: NSTEMI Interval history: pt resting comfortably in bed, no current complaints. Objective Last Vital Signs Temp 99.0 F 08/02/18 05:09 Pulse 84 08/02/18 10:18 Resp 20 08/02/18 10:00 BP 120/86 08/02/18 10:18 Pulse Ox 99 08/02/18 10:00 - Physical Examination General: No Apparent Distress HEENT: Positive: PERRL, Normocephaly, Mucus Membranes Moist Neck: Positive: neck supple, trachea midline Cardiac: Positive: Reg Rate and Rhythm, S1/S2 Lungs: Positive: clear to auscultation Neuro: Positive: Grossly Intact Abdomen: Positive: Soft. Negative: Tender Skin: Positive: Clear. Negative: Rash, Wound Incision: Cardiac Cath Site (right radial artery, c/d/i, no evidence of bleeding or hematoma) Musculoskeletal: No Fluid Collection, No Pain, Normal Range of Motion Extremities: Absent: edema - Labs and Meds Cardiac Enzymes 08/02/18 Range/Units 05:48 CK-MB (CK-2) 80.5 H (0.0-4.0) ng/mL CBC 08/02/18 Range/Units 05:48 WBC 9.0 (4.5-11.0) K/mm3 RBC 5.11 H (3.65-5.03) M/mm3 Hgb 13.6 (11.8-15.2) gm/dl Hct 41.7 (35.5-45.6) % Plt Count 281 (140-440) K/mm3 Lymph # 1.5 (1.2-5.4) K/mm3 [place] # 0.8 (0.0-0.8) K/mm3 Eos # 0.5 H (0.0-0.4) K/mm3 Baso # 0.1 (0.0-0.1) K/mm3 Comprehensive Metabolic Panel 08/02/18 Range/Units 05:48 Sodium 137 (137-145) mmol/L Potassium 3.8 (3.6-5.0) mmol/L Chloride 100.3 (98-107) mmol/L Carbon Dioxide 25 (22-30) mmol/L BUN 14 (9-20) mg/dL Creatinine 1.4 (0.8-1.5) mg/dL Glucose 111 H (75-100) mg/dL Calcium 8.6 (8.4-10.2) mg/dL - Imaging and Cardiology EKG: report reviewed, image reviewed Echo: report reviewed (07/2017 showed EF 50-55%, mild MR, mild TR, basal inferolateral, basal inferior, mid inferolateral, mid inferior and apical lateral wall segments hypokinetic. ) Cardiac cath: report reviewed (08/01/2017: left main patent LAD large Are patent with mild luminal irregularities diagonal one small patent circumflex medium caliber patent with mild GERD is going to OM1 onto which are small to being caliber patent RCA is a large dominant vessel mid 100% had a PCI of the mid RCA with drug-eluting was 3.5 x 15 mm at 20 rupa with normal LV function) - Telemetry EKG Rhythm: Sinus Rhythm - EKG Sinus rhythms and dysrhythmias: sinus rhythm Repolarization changes or abnormalities: nonspecific abnormality, ST segment, and/or T wave
--- NOTE | 2018-08-02 17:17 | Discharge Summary ---
Providers - Providers Date of Admission: 08/01/18 01:45 Date of discharge: 08/02/18 Attending physician: AUREA COYNE 08/01/18 Consult to Cardiac Rehabilitation [CONS] Routine Reason For Exam: post pci Primary care physician: [employer] Hospitalization Condition: Good Disposition: DC-01 TO HOME OR SELFCARE Core Measure Documentation - Palliative Care Palliative Care/ Comfort Measures: Not Applicable - Core Measures Any of the following diagnoses?: acute CO - Acute CO Discharge Requirements Aspirin at discharge: Yes ADNIELLE/ARB for LVSD if EF <40%: Yes Beta av at discharge: Yes Statin for LDL = or >100 mg/dl on DC: Yes Exam - Constitutional Vitals: Temp Pulse Resp BP Pulse Ox 99.0 F 84 20 120/86 99 08/02/18 05:09 08/02/18 10:18 08/02/18 10:00 08/02/18 10:18 08/02/18 10:00 Plan Activity: other Diet: low fat, low cholesterol, low salt Additional Instructions: 1.Follow up with PCP in 1 week. 2.Follow up with Dr Paredes on 08/14/18. 3.No strenous exercise until cleared by cardiology Follow up with: KEV PAREDES MD [Staff Physician] - 7 Days (Follow up in our [place] office with Dr. Paredes on 08/14/2018 @ 8:45AM. ) PRIMARY CAREMD [Primary Care Provider] - 7 Days Prescriptions: Lisinopril [Zestril TAB] 2.5 mg PO QDAY #30 tablet
== END 2018-08-02 19:30 | disposition home or self-care (01) | DRG 247 ==
LOC: ED 19:16 → IMCU 08-01 01:45 → 4A 08-01 13:16
PROVIDERS: ADMIT Internal Medicine; ATTEND Internal Medicine
PROC: 4A023N7 Measurement of Cardiac Sampling and Pressure, Left Heart, Percutaneous Approach (ICD-10-PCS; principal; 2018-08-01)
PROC: 027034Z Dilation of Coronary Artery, One Artery with Drug-eluting Intraluminal Device, Percutaneous Approach (ICD-10-PCS; 2018-08-01)
PROC: B2111ZZ Fluoroscopy of Multiple Coronary Arteries using Low Osmolar Contrast (ICD-10-PCS; 2018-08-01)
PROC: B2151ZZ Fluoroscopy of Left Heart using Low Osmolar Contrast (ICD-10-PCS; 2018-08-01)
DX: I21.4 Non-ST elevation (NSTEMI) myocardial infarction (principal); I25.10 Atherosclerotic heart disease of native coronary artery without angina pectoris; Z98.61 Coronary angioplasty status; I10 Essential (primary) hypertension; Z79.82 Long term (current) use of aspirin; Z82.49 Family history of ischemic heart disease and other diseases of the circulatory system; F17.200 Nicotine dependence, unspecified, uncomplicated; Z91.19 Patient's noncompliance with other medical treatment and regimen; I34.0 Nonrheumatic mitral (valve) insufficiency; K21.9 Gastro-esophageal reflux disease without esophagitis
CPT/HCPCS: 36415; 71045; 80048; 80061; 82550; 82553; 84484; 85014; 85018; 85025; 85049; 85347; 85520; 85610; 85730; 92928; 93005; 93010; 93458; 96374; 96375; A9270-GY; C1725; C1769; C1874; C1887; C1894; C9600; J1644; J2250; J2270; J2405; J3010; J7040; Q9967

== ENCOUNTER 2018-09-13 07:37 | Inpatient (IN) | payer OTHER ==
[2018-09-13] MEDS ORDERED: ASPIRIN PO ONE (08:08)
--- NOTE | 2018-09-13 08:23 | Emergency Department Report ---
ED Chest Pain HPI - General Chief Complaint: Chest Pain Stated Complaint: CHACORTA Time Seen by Provider: 09/13/18 08:21 Source: patient, EMS Mode of arrival: Stretcher Limitations: No Limitations - History of Present Illness Initial Comments: She is a 52-year-old male presents to emergency room with complaints of shortness of breath and chest pain. Patient states he's had this shortness of breath and dyspnea on exertion intermittently 3 weeks. Patient states that this morning his shortness of breath started approximately 3 AM and has been worsening. Patient states that at approximately 6 AM he developed a 4 out of 10 chest pain for which she took nitroglycerin and has relieved. Patient states the chest pain is better with his nitroglycerin and was worse with exertion. Patient states that the shortness of breath exertion or better with rest and worse with exertion. patient states that he has had 2 MA's in the past ,2017 and 2018. MD Complaint: chest pain -: Sudden Onset: during rest Pain Location: substernal, left chest Pain Radiation: none Severity scale (0 -10): 4 Quality: tightness, aching Consistency: constant Improves With: nitroglycerin, rest Worsens With: exertion, movement re: dyspnea. denies: nausea, vomting, diaphoresis, sense of impending doom Other Symptoms: denies: cough, fever, syncope, rash, acid taste in mouth, leg swelling, palpitations, burping Treatments Prior to Arrival: nitroglycerin Aspirin use within the Past 7 Days: (1) Yes - Related Data On Oral Contraceptives: No Home Medications Medication Instructions Recorded Confirmed Last Taken ISOSORBIDE MONOnitrate [Imdur ER] 30 mg PO DAILY 09/13/18 09/13/18 Unknown Nitroglycerin [Nitrostat] 0.4 mg SL Q5M PRN 09/13/18 09/13/18 Unknown Previous Rx's Medication Instructions Recorded Last Taken Type Aspirin [Aspirin BABY CHEW TAB] 81 mg PO QDAY tab.chew 08/03/17 Unknown Rx Clopidogrel [Plavix] 75 mg PO QDAY #30 tablet 08/03/17 Unknown Rx Metoprolol [Lopressor TAB] 25 mg PO BID #60 tablet 08/03/17 Unknown Rx Pravastatin [Pravachol] 80 mg PO QHS #60 tablet 08/03/17 Unknown Rx Lisinopril [Zestril TAB] 2.5 mg PO QDAY #30 tablet 08/02/18 Unknown Rx Allergies Allergy/AdvReac Type Severity Reaction Status Date / Time No Known Allergies Allergy Unverified 08/01/17 00:41 Heart Score - HEART Score History: Moderately suspicious EKG: Non-specific Age: 45-65 Risk factors: > 3 risk factors or hx of atherosclerotic disease Troponin: < normal limit HEART Score: 5 ED Review of Systems ROS: Stated complaint: CHACORTA Other details as noted in HPI Constitutional: denies: chills, fever Eyes: denies: eye pain, eye discharge, vision change ENT: denies: ear pain, throat pain Respiratory: shortness of breath, SOB with exertion, SOB at rest. denies: cough , wheezing Cardiovascular: chest pain. denies: palpitations Endocrine: no symptoms reported Gastrointestinal: denies: abdominal pain, nausea, diarrhea Genitourinary: denies: urgency, dysuria Musculoskeletal: denies: back pain, joint swelling, arthralgia Skin: denies: rash, lesions Neurological: denies: headache, weakness, paresthesias Psychiatric: denies: anxiety, depression Hematological/Lymphatic: denies: easy bleeding, easy bruising ED Past Medical Hx - Past Medical History Previous Medical History?: Yes Hx Hypertension: Yes Hx Heart Attack/AMI: Yes (x2) Hx Congestive Heart Failure: Yes Hx HIV: No - Surgical History Past Surgical History?: Yes Hx Coronary Stent: Yes (3) - Family History Family history: hypertension - Social History Smoking Status: Former Smoker Substance Use Type: None - Medications Home Medications: Home Medications Medication Instructions Recorded Confirmed Last Taken Type Aspirin [Aspirin BABY CHEW TAB] 81 mg PO QDAY tab.chew 08/03/17 09/13/18 Unknown Rx Clopidogrel [Plavix] 75 mg PO QDAY #30 tablet 08/03/17 09/13/18 Unknown Rx Metoprolol [Lopressor TAB] 25 mg PO BID #60 tablet 08/03/17 09/13/18 Unknown Rx Pravastatin [Pravachol] 80 mg PO QHS #60 tablet 08/03/17 09/13/18 Unknown Rx Lisinopril [Zestril TAB] 2.5 mg PO QDAY #30 tablet 08/02/18 09/13/18 Unknown Rx ISOSORBIDE MONOnitrate [Imdur ER] 30 mg PO DAILY 09/13/18 09/13/18 Unknown History Nitroglycerin [Nitrostat] 0.4 mg SL Q5M PRN 09/13/18 09/13/18 Unknown History ED Physical Exam - General Limitations: No Limitations General appearance: alert, in no apparent distress - Head Head exam: Present: atraumatic, normocephalic - Eye Eye exam: Present: normal appearance - ENT ENT exam: Present: mucous membranes moist - Neck Neck exam: Present: normal inspection - Respiratory Respiratory exam: Present: rales. Absent: respiratory distress, wheezes, stridor - Cardiovascular Cardiovascular Exam: Present: regular rate, normal rhythm. Absent: systolic murmur, diastolic murmur, rubs, gallop - GI/Abdominal GI/Abdominal exam: Present: soft, normal bowel sounds - Rectal Rectal exam: Present: deferred - Extremities Exam Extremities exam: Present: normal inspection - Back Exam Back exam: Present: normal inspection - Neurological Exam Neurological exam: Present: alert, oriented X3 - Psychiatric Psychiatric exam: Present: normal affect, normal mood - Skin Skin exam: Present: warm, dry, intact, normal color. Absent: rash ED Course Vital Signs 09/13/18 09/13/18 09/13/18 07:54 07:56 08:00 Temperature 97.6 F Pulse Rate 86 80 87 Respiratory 15 16 20 Rate Blood Pressure 122/78 115/80 Blood Pressure 122/78 [Left] O2 Sat by Pulse 97 96 96 Oximetry 09/13/18 09/13/18 09/13/18 08:15 08:30 08:45 Temperature Pulse Rate 89 94 H 81 Respiratory 17 20 17 Rate Blood Pressure 115/82 113/79 109/73 Blood Pressure [Left] O2 Sat by Pulse 95 96 94 Oximetry 09/13/18 09/13/18 09/13/18 09:00 09:15 09:30 Temperature Pulse Rate 75 80 83 Respiratory 14 13 24 Rate Blood Pressure 100/72 109/75 116/60 Blood Pressure [Left] O2 Sat by Pulse 96 96 95 Oximetry 09/13/18 09/13/18 09/13/18 09:55 10:00 10:08 Temperature Pulse Rate 84 82 Respiratory 20 15 16 Rate Blood Pressure 109/75 104/69 Blood Pressure [Left] O2 Sat by Pulse 96 93 92 Oximetry 10/24/18 10/24/18 10/24/18 10:15 10:31 10:45 Temperature Pulse Rate 81 87 83 Respiratory 14 23 24 Rate Blood Pressure 111/76 111/76 107/77 Blood Pressure [Left] O2 Sat by Pulse 95 94 95 Oximetry 09/13/18 09/13/18 09/13/18 11:00 11:15 11:30 Temperature Pulse Rate 82 85 77 Respiratory 13 11 L 11 L Rate Blood Pressure 117/76 117/76 121/86 Blood Pressure [Left] O2 Sat by Pulse 96 96 96 Oximetry 09/13/18 11:45 Temperature Pulse Rate 80 Respiratory 12 Rate Blood Pressure 121/86 Blood Pressure [Left] O2 Sat by Pulse 97 Oximetry - Reevaluation(s) Reevaluation #1: Patient examined. Patient will need a cardiac workup 09/13/18 08:27 Due to patient's history and symptoms, we'll order a CTA of the chest. 09/13/18 09:27 Discussed plan of care with patient. Patient will be admitted to the hospitalist service. Patient agrees with the plan of care and admission. Discussed all results with patient. 09/13/18 10:53 - Consultations Consultation #1: Hospital was consulted. Hospitalist to admit and assume care of the patient. Bridge orders placed for hospitalist 09/13/18 10:52 DANIELLE score - Danielle Score Age > 65: (0) No Aspirin use within the Past 7 Days: (1) Yes 3 or more CAD Risk Factors: (1) Yes 2 or more Angina events in past 24 hrs: (1) Yes Known CAD with more than 50% Stenosis: (1) Yes Elevated Cardiac Markers: (0) No ST Deviation Greater than 0.5mm: (0) No DANIELLE Score: 4 ED Medical Decision Making - Lab Data Result diagrams: 09/13/18 08:20 09/13/18 08:19 - EKG Data -: EKG Interpreted by [facility] EKG shows normal: sinus rhythm, axis, intervals, QRS complexes, ST-T waves Rate: normal - Radiology Data Radiology results: report reviewed CTA CHEST: HISTORY: chest pain. COMPARISON: none. TECHNIQUE: Helical CT in 1.25mm intervals following IV contrast. Pulmonary embolus protocol. Sagittal and coronal reformatted images. Rotational MIP images. FINDINGS: Contrast bolus is satisfactory. No pulmonary embolus is identified. Thyroid gland: Normal. Tracheobronchial tree: Normal. Esophagus: Normal. Heart: Normal. Pericardium: Normal. Mediastinum: Normal. Lung Srinivasan: Normal. Pleural Spaces: Small to medium bilateral layering pleural effusions are identified. Mild pulmonary venous congestion is suspected. Musculoskeletal: Normal. IMPRESSION: No evidence for pulmonary embolus. Mild pulmonary venous congestion and small to medium bilateral layering pleural effusions. Transcribed By: TTR Dictated By: DAVY ANSARI JR, MD Electronically Authenticated By: DAVY ANSARI JR, MD Signed Date/Time: 09/13/18 1004 - Medical Decision Making She is a 52-year-old gentleman the patient's emergency room with complaints of chest pain shortness of breath. Patient has had this shortness of breath going on for many weeks. Patient states today he had chest pain that was relieved by nitroglycerin and shortness of breath that awoke him up. Patient was found to have a CHF exacerbation. BNP elevated. CTA done no PE and bilateral effusions. Other labs unremarkable. Patient was admitted to the hospitalist service for further evaluation treatment. - Differential Diagnosis cp. sob. chf. acs. pe. Critical Care Time: Yes Critical care attestation.: If time is entered above; I have spent that time in minutes in the direct care of this critically ill patient, excluding procedure time. Critical Care Time: 25 minutes ED Disposition Clinical Impression: SOB (shortness of breath), FELIX (dyspnea on exertion), Elevated brain natriuretic peptide (BNP) level CHF (congestive heart failure) Qualifiers: Heart failure type: unspecified Heart failure chronicity: acute Qualified Code( s): I50.9 - Heart failure, unspecified Chest pain Qualifiers: Chest pain type: unspecified Qualified Code(s): R07.9 - Chest pain, unspecified HTN (hypertension) Qualifiers: Hypertension type: essential hypertension Qualified Code(s): I10 - Essential ( primary) hypertension Disposition: 09 OP ADMIT IP TO THIS HOSP Is pt being admited?: Yes Does the pt Need Aspirin: No Condition: Serious Time of Disposition: 10:52
[2018-09-13 08:28] LABS: Basophils # (Auto) 0.1 K/mm3 (0.0-0.1); Basophils % (Auto) 1.6 % (0.0-1.8); Eosinophils # (Auto) 0.4 K/mm3 (0.0-0.4); Eosinophils % (Auto) 5.9 % (0.0-4.3); Hematocrit 33.7 % (35.5-45.6); Hemoglobin 10.8 gm/dl (11.8-15.2); Lymphocytes # (Auto) 1.8 K/mm3 (1.2-5.4); Lymphocytes % (Auto) 23.3 % (13.4-35.0); Mean Corpuscular HGB Conc 32 % (32-34); Mean Corpuscular Volume 81 fl (84-94); Monocytes # (Auto) 0.4 K/mm3 (0.0-0.8); Monocytes % (Auto) 5.4 % (0.0-7.3); Platelet Count 346 K/mm3 (140-440); Red Blood Count 4.19 M/mm3 (3.65-5.03); Red Cell Distribution Width 14.7 % (13.2-15.2)
[2018-09-13 08:34] LABS: Mean Corpuscular Hemoglobin 26 pg (28-32)
[2018-09-13 08:46] LABS: BUN/Creatinine Ratio 13; Blood Urea Nitrogen 15 mg/dL (9-20); Calcium 8.4 mg/dL (8.4-10.2); Hemolysis Index 15
--- NOTE | 2018-09-13 10:06 | Cat Scan Report ---
CTA CHEST: HISTORY: chest pain. COMPARISON: none. TECHNIQUE: Helical CT in 1.25mm intervals following IV contrast. Pulmonary embolus protocol. Sagittal and coronal reformatted images. Rotational MIP images. FINDINGS: Contrast bolus is satisfactory. No pulmonary embolus is identified. Thyroid gland: Normal. Tracheobronchial tree: Normal. Esophagus: Normal. Heart: Normal. Pericardium: Normal. Mediastinum: Normal. Lung Srinivasan: Normal. Pleural Spaces: Small to medium bilateral layering pleural effusions are identified. Mild pulmonary venous congestion is suspected. Musculoskeletal: Normal. IMPRESSION: No evidence for pulmonary embolus. Mild pulmonary venous congestion and small to medium bilateral layering pleural effusions.
[2018-09-13] MEDS ORDERED: LASIX IV ONE (10:42)
--- NOTE | 2018-09-13 12:09 | History and Physical Report ---
History of Present Illness Date of examination: 09/13/18 Date of admission: 09/13/18 10:47 Chief complaint: Chest pain Shortness of breath History of present illness: Patient is 52 yo with coronary artery disease s/p DC, hypertension. He presents with chest pain and shortness of breath. Chest pain was 8/10, left sided, no radiation. He also complains of shortness of breath. His present at rest but was on exertion and also we'll signed off Flats. 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 However symptoms became worse, therefore came to Emergency Department for evaluation. He was evaluated in ED. CT Chest shows pulmonary congestion. He was given Lasix IV and will be admitted for further management. Past History Past Medical History: acute DC, CAD, hypertension Past Surgical History: PTCA, Other (Right forearm surgery) Social history: full code, other (Alcohol occasionaly). denies: smoking Family history: hypertension Medications and Allergies Allergies Allergy/AdvReac Type Severity Reaction Status Date / Time No Known Allergies Allergy Unverified 08/01/17 00:41 Home Medications Medication Instructions Recorded Confirmed Last Taken Type Aspirin [Aspirin BABY CHEW TAB] 81 mg PO QDAY tab.chew 08/03/17 09/13/18 Unknown Rx Clopidogrel [Plavix] 75 mg PO QDAY #30 tablet 08/03/17 09/13/18 Unknown Rx Metoprolol [Lopressor TAB] 25 mg PO BID #60 tablet 08/03/17 09/13/18 Unknown Rx Pravastatin [Pravachol] 80 mg PO QHS #60 tablet 08/03/17 09/13/18 Unknown Rx Lisinopril [Zestril TAB] 2.5 mg PO QDAY #30 tablet 08/02/18 09/13/18 Unknown Rx ISOSORBIDE MONOnitrate [Imdur ER] 30 mg PO DAILY 09/13/18 09/13/18 Unknown History Nitroglycerin [Nitrostat] 0.4 mg SL Q5M PRN 09/13/18 09/13/18 Unknown History Review of Systems All systems: negative (No fever, no headache, no dysuria. all other systems reviewd and are negative.) Exam - Physical Exam Narrative exam: GEN: Not in acute distress, HEENT: Normocephalic, atraumatic, Neck: supple, No JVD Lungs: Bilateral basal crackles, no wheeze Heart:S1 and S2 regular, no murmurs, rubs or gallop, Abd:soft, non-tender, non-distended, normal bowel sounds Ext: No edema, no clubbing, no cyanosis Neuro: AAO x 3, no focal neurological signs - Constitutional Vitals: Temp Pulse Resp BP Pulse Ox 97.6 F 80 12 121/86 97 09/13/18 07:56 09/13/18 11:45 09/13/18 11:45 09/13/18 11:45 09/13/18 11:45 Results - Labs CBC & Chem 7: 09/14/18 06:50 09/14/18 06:50 Labs: Abnormal lab results 09/13/18 09/13/18 Range/Units 08:19 08:20 Hgb 10.8 L (11.8-15.2) gm/dl Hct 33.7 L (35.5-45.6) % MCV 81 L (84-94) fl MCH 26 L (28-32) pg Eos % (Auto) 5.9 H (0.0-4.3) % Chloride 107.3 H (98-107) mmol/L Carbon Dioxide 18 L (22-30) mmol/L Glucose 104 H (75-100) mg/dL NT-Pro-B Natriuret Pep 1170 H (0-900) pg/mL Assessment and Plan Chest pain. Admit to Telemetry. Aspirin given in ED Keep NPO. Consult Cardiology Serial Troponins Acute CHF. Obtain Echo to determine EF lasix iv strict fluid I/O CAD s/p PCI s/p NSTEMI Hypertension. Monitor BP Hyperlipidemia Full code status
[2018-09-13] MEDS ORDERED: NITROSTAT SL PRN (12:20)
[2018-09-13] MEDS ORDERED: MORPHINE IV PRN (12:21)
[2018-09-13] MEDS ORDERED: SODIUM CHLORIDE FLUSH SYRINGE 10 ML IV PRN ×2 (12:21→12:23)
[2018-09-13] MEDS ORDERED: TYLENOL PO PRN (12:21)
[2018-09-13] MEDS ORDERED: ZOFRAN IV PRN (12:21)
--- NOTE | 2018-09-13 16:11 | Consultation ---
History of Present Illness Consult date: 09/13/18 Requesting physician: AUREA COYNE Consult reason: chest pain, congestive heart failure, shortness of breath History of present illness: The pt is a 52 YO male with a past medical history significant for CAD s/p STEMI with PCI, mod to severe MR, HTN, tobacco use. He is followed in our office by Dr. Amato. He presented with c/o progressively worsening SOB and FELIX for 6 weeks prior to arrival. He also reports chest pain. He noted worsening of his symptoms this morning around 3AM and called EMS. He describes his chest pain as a midsternal squeezing which is intermittent in nature and which has no clear aggravating or alleviating factors. He was recently seen in our office on 09/[address] Amato with similar complaints and was scheduled for OP stress test and echo. He was seen by our practice in 07/2017 when he underwent LHC with PCI of RCA per Dr. Baugh for STEMI. on 08/01/2018 he underwent LHC with PCI to OM1, EF 25-30%. Echo done 08/30/2018 showed EF 45-50%, grade 3 diastolic dysfunction, mod to severe MR, mod TR. Past History Past Medical History: CAD, heart failure, hypertension, other (MR) Past Surgical History: PTCA, Other (Right forearm surgery) Social history: full code, other (Alcohol occasionaly). denies: smoking Family history: hypertension Medications and Allergies Allergies Allergy/AdvReac Type Severity Reaction Status Date / Time No Known Allergies Allergy Unverified 08/01/17 00:41 Home Medications Medication Instructions Recorded Confirmed Last Taken Type Aspirin [Aspirin BABY CHEW TAB] 81 mg PO QDAY tab.chew 08/03/17 09/13/18 Unknown Rx Clopidogrel [Plavix] 75 mg PO QDAY #30 tablet 08/03/17 09/13/18 Unknown Rx Metoprolol [Lopressor TAB] 25 mg PO BID #60 tablet 08/03/17 09/13/18 Unknown Rx Pravastatin [Pravachol] 80 mg PO QHS #60 tablet 08/03/17 09/13/18 Unknown Rx Lisinopril [Zestril TAB] 2.5 mg PO QDAY #30 tablet 08/02/18 09/13/18 Unknown Rx ISOSORBIDE MONOnitrate [Imdur ER] 30 mg PO DAILY 09/13/18 09/13/18 Unknown History Nitroglycerin [Nitrostat] 0.4 mg SL Q5M PRN 09/13/18 09/13/18 Unknown History Active Meds: Active Medications Acetaminophen (Tylenol) 650 mg PO Q4H PRN PRN Reason: Pain MILD(1-3)/Fever >100.5/ADRIAN Aspirin (Baby Aspirin) 81 mg PO QDAY [facility] Clopidogrel Bisulfate (Plavix) 75 mg PO QDAY [facility] Isosorbide Mononitrate (Imdur) 30 mg PO DAILY [facility] Lisinopril (Zestril) 2.5 mg PO QDAY [facility] Metoprolol Tartrate (Lopressor) 25 mg PO BID [facility] Morphine Sulfate (Morphine) 2 mg IV Q4H PRN PRN Reason: Pain, Moderate (4-6) Nitroglycerin (Nitrostat) 0.4 mg SL Q5M PRN PRN Reason: Angina Ondansetron HCl (Zofran) 4 mg IV Q8H PRN PRN Reason: Nausea And Vomiting Pravastatin Sodium (Pravachol) 80 mg PO QHS [facility] Sodium Chloride (Sodium Chloride Flush Syringe 10 Ml) 10 ml IV BID [facility] Sodium Chloride (Sodium Chloride Flush Syringe 10 Ml) 10 ml IV PRN PRN PRN Reason: LINE FLUSH Sodium Chloride (Sodium Chloride Flush Syringe 10 Ml) 10 ml IV PRN PRN PRN Reason: LINE FLUSH Review of Systems Constitutional: no weight loss, no weight gain, no fever, no chills, no sweats Ears, nose, mouth and throat: no ear pain, no nose pain, no sinus pressure, no sinus pain Cardiovascular: chest pain, orthopnea, shortness of breath, dyspnea on exertion , no palpitations, no rapid/irregular heart beat, no edema, no syncope, no lightheadedness, no leg edema Respiratory: no cough, no congestion, no wheezing, no pain on inspiration Gastrointestinal: no abdominal pain, no nausea, no vomiting, no diarrhea, no constipation, no change in bowel habits Genitourinary Male: no dysuria, no hematuria, no flank pain, no discharge, no urinary frequency, no urinary hesitancy Musculoskeletal: no neck stiffness, no neck pain, no shooting arm pain, no arm numbness/tingling, no low back pain, no shooting leg pain, no leg numbness/ tingling, no redness of joints, no hot joints, no morning stiffness, no muscle weakness Integumentary: no rash, no pruritis, no redness, no sores, no wounds Neurological: no head injury, no paralysis, no weakness, no parathesias, no numbness, no tingling, no seizures, no syncope Psychiatric: no anxiety Endocrine: no cold intolerance, no heat intolerance Hematologic/Lymphatic: no easy bruising, no easy bleeding Allergic/Immunologic: no urticaria, no wheezing Physical Examination Vital Signs Pulse Resp Pulse Ox 86 15 97 09/13/18 07:54 09/13/18 07:54 09/13/18 07:54 General appearance: no acute distress HEENT: Positive: PERRL, Normocephaly, Mucus Membranes Moist Neck: Positive: neck supple, trachea midline Cardiac: Positive: Reg Rate and Rhythm, S1/S2, S3, Systolic Murmur Lungs: Positive: Rales Neuro: Positive: Grossly Intact Abdomen: Positive: Soft. Negative: Tender Skin: Positive: Clear. Negative: Rash, Wound Musculoskeletal: No Pain Extremities: Absent: edema Results 09/13/18 08:20 09/13/18 08:19 CBC 09/13/18 Range/Units 08:20 WBC 7.6 (4.5-11.0) K/mm3 RBC 4.19 (3.65-5.03) M/mm3 Hgb 10.8 L (11.8-15.2) gm/dl Hct 33.7 L (35.5-45.6) % Plt Count 346 (140-440) K/mm3 Lymph # 1.8 (1.2-5.4) K/mm3 [place] # 0.4 (0.0-0.8) K/mm3 Eos # 0.4 (0.0-0.4) K/mm3 Baso # 0.1 (0.0-0.1) K/mm3 Comprehensive Metabolic Panel 09/13/18 Range/Units 08:19 Sodium 140 (137-145) mmol/L Potassium 3.8 (3.6-5.0) mmol/L Chloride 107.3 H (98-107) mmol/L Carbon Dioxide 18 L (22-30) mmol/L BUN 15 (9-20) mg/dL Creatinine 1.2 (0.8-1.5) mg/dL Glucose 104 H (75-100) mg/dL Calcium 8.4 (8.4-10.2) mg/dL - Imaging and Cardiology Echo: report reviewed (08/30/2018 showed EF 45-50%, grade 3 diastolic dysfunction, mod to severe MR, mod TR. ) Cardiac cath: report reviewed ( 07/2017 when he underwent LHC with PCI of RCA per Dr. Baugh for STEMI. on 08/01/2018 he underwent LHC with PCI to OM1, EF 25- 30%.) EKG: report reviewed, image reviewed EKG interpretations - Telemetry EKG Rhythm: Sinus Rhythm - EKG Sinus rhythms and dysrhythmias: sinus rhythm Repolarization changes or abnormalities: nonspecific abnormality, ST segment, and/or T wave Assessment and Plan Initiate scheduled diuresis with IV lasix BID. Agree with all other present cardiac management. Suspect ischemic MR is contributing to pt's symptoms. Plan for lexiscan MPI stress test in AM. NPO after MN. Assessment and plan reviewed with pt at bedside. The patient has been seen in conjunction with Dr. Abarca who agrees with the assessment and plan of care. - Patient Problems (1) Acute diastolic heart failure Current Visit: Yes Status: Acute (2) Chest pain Current Visit: Yes Status: Acute Qualifiers: Chest pain type: unspecified Qualified Code(s): R07.9 - Chest pain, unspecified (3) Moderate to severe mitral regurgitation Current Visit: Yes Status: Chronic (4) HTN (hypertension) Current Visit: Yes Status: Chronic Qualifiers: Hypertension type: essential hypertension Qualified Code(s): I10 - Essential (primary) hypertension (5) CAD (coronary artery disease) Current Visit: Yes Status: Chronic Qualifiers: Coronary Disease-Associated Artery/Lesion type: [place] artery (6) Stented coronary artery Current Visit: Yes Status: Chronic
[2018-09-13] MEDS: ZESTRIL PO SCH (18:29)
[2018-09-13] MEDS: IMDUR PO SCH (18:30)
[2018-09-13] MEDS: LOPRESSOR PO SCH ×2 (18:31→21:19)
[2018-09-13] MEDS: LASIX IV SCH (18:31)
[2018-09-13] MEDS: PLAVIX PO SCH (18:31)
[2018-09-13] MEDS: PRAVACHOL PO SCH (21:19)
[2018-09-13] MEDS: SODIUM CHLORIDE FLUSH SYRINGE 10 ML IV SCH (21:19)
[2018-09-14] MEDS: LASIX IV SCH ×2 (05:58→18:18)
[2018-09-14 07:32] LABS: Basophils # (Auto) 0.1 K/mm3 (0.0-0.1); Basophils % (Auto) 1.5 % (0.0-1.8); Eosinophils # (Auto) 0.4 K/mm3 (0.0-0.4); Eosinophils % (Auto) 6.2 % (0.0-4.3); Hematocrit 36.3 % (35.5-45.6); Hemoglobin 11.8 gm/dl (11.8-15.2); Lymphocytes # (Auto) 1.7 K/mm3 (1.2-5.4); Lymphocytes % (Auto) 24.3 % (13.4-35.0); Mean Corpuscular HGB Conc 33 % (32-34); Mean Corpuscular Hemoglobin 26 pg (28-32); Mean Corpuscular Volume 81 fl (84-94); Monocytes # (Auto) 0.6 K/mm3 (0.0-0.8); Monocytes % (Auto) 7.7 % (0.0-7.3); Platelet Count 357 K/mm3 (140-440); Red Blood Count 4.51 M/mm3 (3.65-5.03); Red Cell Distribution Width 15.2 % (13.2-15.2)
[2018-09-14 07:53] LABS: BUN/Creatinine Ratio 13; Blood Urea Nitrogen 17 mg/dL (9-20); Calcium 8.8 mg/dL (8.4-10.2); Hemolysis Index 5
[2018-09-14] MEDS ORDERED: LEXISCAN IV ONE ×2 (09:00→09:04)
--- NOTE | 2018-09-14 12:08 | Progress Note ---
Assessment and Plan s/p lexiscan MPI stress test this AM which was negative. chest pain currently resolved. Suspect ischemic MR is contributing to pt's symptoms. Cont present management with possible d/c in AM. Assessment and plan reviewed with pt at bedside. The patient has been seen in conjunction with Dr. Abarca who agrees with the assessment and plan of care. - Patient Problems (1) Acute diastolic heart failure Current Visit: Yes Status: Acute (2) Chest pain Current Visit: Yes Status: Acute Qualifiers: Chest pain type: unspecified Qualified Code(s): R07.9 - Chest pain, unspecified (3) Moderate to severe mitral regurgitation Current Visit: Yes Status: Chronic (4) HTN (hypertension) Current Visit: Yes Status: Chronic Qualifiers: Hypertension type: essential hypertension Qualified Code(s): I10 - Essential (primary) hypertension (5) CAD (coronary artery disease) Current Visit: Yes Status: Chronic Qualifiers: Coronary Disease-Associated Artery/Lesion type: [place] artery (6) Stented coronary artery Current Visit: Yes Status: Chronic Subjective Date of service: 09/14/18 Principal diagnosis: cp Interval history: pt for stress test today, no current cardiac complaints. Objective Last Vital Signs Temp 98.4 F 09/14/18 11:49 Pulse 71 09/14/18 11:49 Resp 18 09/14/18 11:49 BP 104/70 09/14/18 11:49 Pulse Ox 100 09/14/18 11:49 - Physical Examination General: No Apparent Distress HEENT: Positive: PERRL, Normocephaly, Mucus Membranes Moist Neck: Positive: neck supple, trachea midline Cardiac: Positive: Reg Rate and Rhythm, S1/S2 Lungs: Positive: clear to auscultation Neuro: Positive: Grossly Intact Abdomen: Positive: Soft. Negative: Tender Skin: Positive: Clear. Negative: Rash, Wound Musculoskeletal: No Pain Extremities: Absent: edema - Labs and Meds CBC 09/14/18 Range/Units 06:50 WBC 7.2 (4.5-11.0) K/mm3 RBC 4.51 (3.65-5.03) M/mm3 Hgb 11.8 (11.8-15.2) gm/dl Hct 36.3 (35.5-45.6) % Plt Count 357 (140-440) K/mm3 Lymph # 1.7 (1.2-5.4) K/mm3 [place] # 0.6 (0.0-0.8) K/mm3 Eos # 0.4 (0.0-0.4) K/mm3 Baso # 0.1 (0.0-0.1) K/mm3 Comprehensive Metabolic Panel 09/14/18 Range/Units 06:50 Sodium 140 (137-145) mmol/L Potassium 3.5 L (3.6-5.0) mmol/L Chloride 101.6 (98-107) mmol/L Carbon Dioxide 25 D (22-30) mmol/L BUN 17 (9-20) mg/dL Creatinine 1.3 (0.8-1.5) mg/dL Glucose 102 H (75-100) mg/dL Calcium 8.8 (8.4-10.2) mg/dL - Imaging and Cardiology EKG: report reviewed, image reviewed Echo: report reviewed (08/30/2018 showed EF 45-50%, grade 3 diastolic dysfunction, mod to severe MR, mod TR. ) Cardiac cath: report reviewed ( 07/2017 when he underwent LHC with PCI of RCA per Dr. Baugh for STEMI. on 08/01/2018 he underwent LHC with PCI to OM1, EF 25- 30%.) - EKG Sinus rhythms and dysrhythmias: sinus rhythm Repolarization changes or abnormalities: nonspecific abnormality, ST segment, and/or T wave
[2018-09-14] MEDS ORDERED: K-DUR PO ONE ×2 (14:00→21:00)
--- NOTE | 2018-09-14 14:42 | Progress Note ---
Assessment and Plan Assessment and plan: Chest pain. Admitted to Telemetry. Stress test negative. cardiology following Acute CHF. Obtain Echo to determine EF Continue Lasix iv strict fluid I/O CAD s/p PCI s/p NSTEMI Hypertension. Monitor BP Hyperlipidemia Statin DVT prophylaxis. heparin subcut Full code status History Interval history: Less shortness of breath, No chest pain right now Hospitalist Physical - Physical exam Narrative exam: GEN: Not in acute distress, HEENT: Normocephalic, atraumatic, Neck: supple, No JVD Lungs: Bilateral basal crackles, no wheeze Heart:S1 and S2 regular, no murmurs, rubs or gallop, Abd:soft, non-tender, non-distended, normal bowel sounds Ext: No edema, no clubbing, no cyanosis Neuro: AAO x 3, no focal neurological signs - Constitutional Vitals: Temp Pulse Resp BP Pulse Ox 98.4 F 71 18 104/70 100 09/14/18 11:49 09/14/18 11:49 09/14/18 11:49 09/14/18 11:49 09/14/18 11:49 General appearance: Present: no acute distress Results - Labs CBC & Chem 7: 09/14/18 06:50 09/14/18 06:50 Labs: Laboratory Last Values WBC 7.2 K/mm3 (4.5-11.0) 09/14/18 06:50 RBC 4.51 M/mm3 (3.65-5.03) 09/14/18 06:50 Hgb 11.8 gm/dl (11.8-15.2) 09/14/18 06:50 Hct 36.3 % (35.5-45.6) 09/14/18 06:50 MCV 81 fl (84-94) L 09/14/18 06:50 MCH 26 pg (28-32) L 09/14/18 06:50 MCHC 33 % (32-34) 09/14/18 06:50 RDW 15.2 % (13.2-15.2) 09/14/18 06:50 Plt Count 357 K/mm3 (140-440) 09/14/18 06:50 Lymph % (Auto) 24.3 % (13.4-35.0) 09/14/18 06:50 [place] % (Auto) 7.7 % (0.0-7.3) H 09/14/18 06:50 Eos % (Auto) 6.2 % (0.0-4.3) H 09/14/18 06:50 Baso % (Auto) 1.5 % (0.0-1.8) 09/14/18 06:50 Lymph # 1.7 K/mm3 (1.2-5.4) 09/14/18 06:50 [place] # 0.6 K/mm3 (0.0-0.8) 09/14/18 06:50 Eos # 0.4 K/mm3 (0.0-0.4) 09/14/18 06:50 Baso # 0.1 K/mm3 (0.0-0.1) 09/14/18 06:50 Seg Neutrophils % 60.3 % (40.0-70.0) 09/14/18 06:50 Seg Neutrophils # 4.3 K/mm3 (1.8-7.7) 09/14/18 06:50 Sodium 140 mmol/L (137-145) 09/14/18 06:50 Potassium 3.5 mmol/L (3.6-5.0) L 09/14/18 06:50 Chloride 101.6 mmol/L (98-107) 09/14/18 06:50 Carbon Dioxide 25 mmol/L (22-30) D 09/14/18 06:50 Anion Gap 17 mmol/L 09/14/18 06:50 BUN 17 mg/dL (9-20) 09/14/18 06:50 Creatinine 1.3 mg/dL (0.8-1.5) 09/14/18 06:50 Estimated GFR > 60 ml/min 09/14/18 06:50 BUN/Creatinine Ratio 13 % 09/14/18 06:50 Glucose 102 mg/dL (75-100) H 09/14/18 06:50 POC Glucose 96 (70-105) 09/14/18 05:03 Calcium 8.8 mg/dL (8.4-10.2) 09/14/18 06:50 Troponin T < 0.010 ng/mL (0.00-0.029) 09/13/18 14:00 NT-Pro-B Natriuret Pep 1170 pg/mL (0-900) H 09/13/18 08:19
[2018-09-14] MEDS: LOPRESSOR PO SCH ×2 (14:59→21:34)
[2018-09-14] MEDS: IMDUR PO SCH (14:59)
[2018-09-14] MEDS: BABY ASPIRIN PO SCH (14:59)
[2018-09-14] MEDS: ZESTRIL PO SCH (15:00)
[2018-09-14] MEDS: PLAVIX PO SCH (15:00)
[2018-09-14] MEDS: SODIUM CHLORIDE FLUSH SYRINGE 10 ML IV SCH ×2 (15:08→21:34)
[2018-09-14] MEDS: HEPARIN SUB-Q SCH ×2 (18:17→21:35)
[2018-09-14] MEDS: PRAVACHOL PO SCH (21:32)
--- NOTE | 2018-09-15 00:50 | Treadmill Report ---
MYOCARDIAL PERFUSION IMAGING STUDIES Resting Myoview scan revealed absent radioisotope activity in the inferior and lateral wall. On post-Lexiscan, the technetium scan revealed a similar absent uptake of radioisotope in inferior and lateral wall. On gated scan, there was hypocontractility of the inferolateral wall with ejection fraction approximately 46%. There is no transient ischemic dilatation. IMPRESSION: This test revealed fixed defect in inferolateral region of the myocardium suggesting a scar without any reversibility. His ejection fraction is reduced at 46%. JOB# [id number] LEV/NTS
[2018-09-15 04:02] LABS: BUN/Creatinine Ratio 12; Blood Urea Nitrogen 17 mg/dL (9-20); Calcium 8.5 mg/dL (8.4-10.2); Hemolysis Index 2
[2018-09-15] MEDS: HEPARIN SUB-Q SCH (06:16)
[2018-09-15] MEDS: LASIX IV SCH (06:19)
[2018-09-15 07:43] VITALS: BP 112/64
--- NOTE | 2018-09-15 10:26 | Discharge Summary ---
Providers - Providers Date of Admission: 09/13/18 10:47 Date of discharge: 09/15/18 Attending physician: AUREA COYNE 09/13/18 12:09 Consult to Physician [CONS] Routine Comment: Consulting Provider: KEV PAREDES Physician Instructions: Reason For Exam: Chest pain, SOB, CHF Primary care physician: UX MANAGER Hospitalization Condition: Fair Disposition: DC-01 TO HOME OR SELFCARE Core Measure Documentation - Palliative Care Palliative Care/ Comfort Measures: Not Applicable - Core Measures Any of the following diagnoses?: heart failure Exam - Physical Exam Narrative exam: GEN: Not in acute distress, HEENT: Normocephalic, atraumatic, Neck: supple, No JVD Lungs: Bilateral basal crackles, no wheeze Heart:S1 and S2 regular, no murmurs, rubs or gallop, Abd:soft, non-tender, non-distended, normal bowel sounds Ext: No edema, no clubbing, no cyanosis Neuro: AAO x 3, no focal neurological signs - Constitutional Vitals: Temp Pulse Resp BP Pulse Ox 97.9 F 81 20 112/64 96 09/15/18 07:41 09/15/18 07:41 09/15/18 07:41 09/15/18 07:41 09/15/18 07:41 Plan Activity: advance as tolerated Diet: low fat, low cholesterol, low salt Additional Instructions: 1.Follow-up with PCP in one week. 2.Follow up with Dr. Paredes in 3-5 days. Follow up with: PRIMARY CARE,MD [Primary Care Provider] - 7 Days Prescriptions: Furosemide [Lasix TAB] 40 mg PO QDAY #30 tablet
[2018-09-15] MEDS: ZESTRIL PO SCH (10:34)
[2018-09-15] MEDS: BABY ASPIRIN PO SCH (10:34)
[2018-09-15] MEDS: IMDUR PO SCH (10:34)
[2018-09-15] MEDS: PLAVIX PO SCH (10:35)
--- NOTE | 2018-09-15 12:01 | Progress Note ---
Assessment and Plan Currently stable cardiac status. Pt may discharge home from cardiology standpoint. At discharge, recommend conversion of IV lasix to PO lasix, 40mg daily. Recommend pt follow up in our office with Dr. Amato within 3-5 days of hospital discharge ([phone]). Pt verbalizes understanding and states he will call and make his own appointment. Assessment and plan reviewed with pt at bedside. The patient has been seen in conjunction with Dr. Abarca who agrees with the assessment and plan of care. - Patient Problems (1) Acute diastolic heart failure Current Visit: Yes Status: Acute (2) Chest pain Current Visit: Yes Status: Acute Qualifiers: Chest pain type: unspecified Qualified Code(s): R07.9 - Chest pain, unspecified (3) Moderate to severe mitral regurgitation Current Visit: Yes Status: Chronic (4) HTN (hypertension) Current Visit: Yes Status: Chronic Qualifiers: Hypertension type: essential hypertension Qualified Code(s): I10 - Essential (primary) hypertension (5) CAD (coronary artery disease) Current Visit: Yes Status: Chronic Qualifiers: Coronary Disease-Associated Artery/Lesion type: [place] artery (6) Stented coronary artery Current Visit: Yes Status: Chronic Subjective Date of service: 09/15/18 Principal diagnosis: cp Interval history: pt resting comfortably in bed, no current cardiac complaints. Objective Last Vital Signs Temp 97.9 F 09/15/18 07:41 Pulse 81 09/15/18 07:41 Resp 20 09/15/18 07:41 BP 112/64 09/15/18 07:41 Pulse Ox 99 09/15/18 09:30 - Physical Examination General: No Apparent Distress HEENT: Positive: PERRL, Normocephaly, Mucus Membranes Moist Neck: Positive: neck supple, trachea midline Cardiac: Positive: Reg Rate and Rhythm, S1/S2 Lungs: Positive: clear to auscultation Neuro: Positive: Grossly Intact Abdomen: Positive: Soft. Negative: Tender Skin: Positive: Clear. Negative: Rash, Wound Musculoskeletal: No Pain Extremities: Absent: edema - Labs and Meds Comprehensive Metabolic Panel 09/15/18 Range/Units 03:33 Sodium 138 (137-145) mmol/L Potassium 4.4 D (3.6-5.0) mmol/L Chloride 100.1 (98-107) mmol/L Carbon Dioxide 22 (22-30) mmol/L BUN 17 (9-20) mg/dL Creatinine 1.4 (0.8-1.5) mg/dL Glucose 104 H (75-100) mg/dL Calcium 8.5 (8.4-10.2) mg/dL - Imaging and Cardiology EKG: report reviewed, image reviewed Echo: report reviewed (08/30/2018 showed EF 45-50%, grade 3 diastolic dysfunction, mod to severe MR, mod TR. ) Cardiac cath: report reviewed ( 07/2017 when he underwent LHC with PCI of RCA per Dr. Baugh for STEMI. on 08/01/2018 he underwent LHC with PCI to OM1, EF 25- 30%.) - Telemetry EKG Rhythm: Sinus Rhythm - EKG Sinus rhythms and dysrhythmias: sinus rhythm Repolarization changes or abnormalities: nonspecific abnormality, ST segment, and/or T wave
== END 2018-09-15 16:30 | disposition home or self-care (01) | DRG 291 ==
LOC: ED 07:37 → 4A 10:47
PROVIDERS: ADMIT Internal Medicine; ATTEND Internal Medicine
DX: I11.0 Hypertensive heart disease with heart failure (principal); I50.31 Acute diastolic (congestive) heart failure; I25.10 Atherosclerotic heart disease of native coronary artery without angina pectoris; E78.5 Hyperlipidemia, unspecified; F17.200 Nicotine dependence, unspecified, uncomplicated; Z82.49 Family history of ischemic heart disease and other diseases of the circulatory system; Z95.5 Presence of coronary angioplasty implant and graft; I25.2 Old myocardial infarction; Z79.82 Long term (current) use of aspirin; Z79.899 Other long term (current) drug therapy
CPT/HCPCS: 36415; 71275; 78452; 80048; 82962; 83880; 84484; 85025; 93005; 93010; 93017; 96374; A9270-GY; A9502; J1644; J1940; J2270; J2785; Q9967

== ENCOUNTER 2019-08-20 00:36 | Emergency (ER) | payer MEDICAID ==
[2019-08-20 01:17] VITALS: BP 137/87
[2019-08-20] MEDS ORDERED: METOCLOPRAMIDE 10 MG/2 ML INJ IV ONE (02:14)
[2019-08-20] MEDS ORDERED: diphenhydrAMINE 50 MG/ML VIAL IV ONE (02:14)
--- NOTE | 2019-08-20 02:34 | Emergency Department Report ---
ED Headache HPI - General Chief Complaint: Headache Stated Complaint: HEADACHE,LIGHT SENSITIVITY Time Seen by Provider: 08/20/19 02:09 - History of Present Illness Initial Comments: Patient is a 53-year-old male presents emergency room with complaints of a frontal headache that began 3 days ago. He describes the pain as a throbbing sensation. Patient has not taken anything for his headache. He states he has associated photophobia and sensitivity to loud noises. He denies any nausea, vomiting, fever, neck stiffness, numbness, unilateral weakness. He has a past medical history of CHF and CKD. He denies any allergies to medications. Allergies/Adverse Reactions: Allergies No Known Allergies Allergy (Verified 10/04/18 21:59) Home Medications: Ambulatory Orders Aspirin [Aspirin BABY CHEW TAB] 81 mg PO QDAY tab.chew 08/03/17 Clopidogrel [Plavix] 75 mg PO QDAY #30 tablet 08/03/17 Metoprolol [Lopressor TAB] 25 mg PO BID #60 tablet 08/03/17 Pravastatin [Pravachol] 80 mg PO QHS #60 tablet 08/03/17 Lisinopril [Zestril TAB] 2.5 mg PO QDAY #30 tablet 08/02/18 ISOSORBIDE MONOnitrate [Imdur ER] 30 mg PO DAILY 09/13/18 Nitroglycerin [Nitrostat] 0.4 mg SL Q5M PRN 09/13/18 Furosemide [Lasix TAB] 40 mg PO QDAY #30 tablet 09/15/18 Amoxicillin/K Clav Tab [Augmentin 875 mg] 1 tab PO Q12HR 10 Days tab 10/07/18 Butalb/Acetaminophen/Caffeine [Fioricet 50-300-40 mg CAP] 1 cap PO Q8HR PRN #7 cap 08/20/19 ED Review of Systems ROS: Stated complaint: HEADACHE,LIGHT SENSITIVITY Other details as noted in HPI Comment: All other systems reviewed and negative ED Past Medical Hx - Past Medical History Previous Medical History?: Yes Hx Hypertension: Yes Hx Heart Attack/AMI: Yes Hx Congestive Heart Failure: Yes Hx Diabetes: No Hx Asthma: Yes (childhood) Hx COPD: No Hx HIV: No - Surgical History Past Surgical History?: Yes Hx Coronary Stent: Yes (3) - Social History Smoking Status: Never Smoker Substance Use Type: Alcohol - Medications Home Medications: Home Medications Medication Instructions Recorded Confirmed Last Taken Type Aspirin [Aspirin BABY CHEW TAB] 81 mg PO QDAY tab.chew 08/03/17 10/05/18 Unknown Rx Clopidogrel [Plavix] 75 mg PO QDAY #30 tablet 08/03/17 10/05/18 Unknown Rx Metoprolol [Lopressor TAB] 25 mg PO BID #60 tablet 08/03/17 10/05/18 Unknown Rx Pravastatin [Pravachol] 80 mg PO QHS #60 tablet 08/03/17 10/05/18 Unknown Rx Lisinopril [Zestril TAB] 2.5 mg PO QDAY #30 tablet 08/02/18 10/05/18 Unknown Rx ISOSORBIDE MONOnitrate [Imdur ER] 30 mg PO DAILY 09/13/18 10/05/18 Unknown History Nitroglycerin [Nitrostat] 0.4 mg SL Q5M PRN 09/13/18 10/05/18 Unknown History Furosemide [Lasix TAB] 40 mg PO QDAY #30 tablet 09/15/18 10/05/18 Unknown Rx Amoxicillin/K Clav Tab [Augmentin 1 tab PO Q12HR 10 Days tab 10/07/18 Unknown Rx 875 mg] Butalb/Acetaminophen/Caffeine 1 cap PO Q8HR PRN #7 cap 08/20/19 Unknown Rx [Fioricet 50-300-40 mg CAP] ED Physical Exam - General Limitations: No Limitations General appearance: alert, in no apparent distress - Head Head exam: Present: atraumatic, normocephalic - Eye Eye exam: Present: normal appearance, PERRL, EOMI. Absent: nystagmus, periorbital swelling, periorbital tenderness - ENT ENT exam: Present: mucous membranes moist - Neck Neck exam: Present: normal inspection, full ROM. Absent: meningismus - Respiratory Respiratory exam: Present: normal lung sounds bilaterally. Absent: respiratory distress, wheezes, rales, rhonchi, stridor, chest wall tenderness, accessory muscle use, decreased breath sounds - Cardiovascular Cardiovascular Exam: Present: regular rate, normal rhythm, systolic murmur (3/6 murmur) - Neurological Exam Neurological exam: Present: alert, oriented X3, CN II-XII intact, normal gait. Absent: motor sensory deficit - Psychiatric Psychiatric exam: Present: normal affect, normal mood - Skin Skin exam: Present: warm, dry, intact ED Course Vital Signs 08/20/19 00:46 Temperature 97.8 F Pulse Rate 88 Respiratory 18 Rate Blood Pressure 137/87 O2 Sat by Pulse 98 Oximetry ED Medical Decision Making - Medical Decision Making Patient is a 53-year-old male presents emergency room with complaints of a frontal headache that began 3 days ago. He describes the pain as a throbbing sensation. Patient has not taken anything for his headache. He states he has associated photophobia and sensitivity to loud noises. He denies any nausea, vomiting, fever, neck stiffness, numbness, unilateral weakness. He has a past medical history of CHF and CKD. He denies any allergies to medications. vitals are normal. on exam: pt non toxic appearing, PEERL, EOMI, no focal neuro deficits. pt given benadryl and reglan and ADRIAN completely resolved. pt given prescription for fioricet to used as needed. advised pt to please take medication as prescribed as needed. Follow-up with your primary care provider in the next 2-3 days. Return to the emergency room immediately for any new or worsening symptoms or symptoms are not improving. - Differential Diagnosis migraine, cluster ADRIAN, tension ADRIAN Critical care attestation.: If time is entered above; I have spent that time in minutes in the direct care of this critically ill patient, excluding procedure time. ED Disposition Clinical Impression: Headache Qualifiers: Headache type: unspecified Headache chronicity pattern: acute headache Intractability: not intractable Qualified Code(s): R51 - Headache Disposition: DC-01 TO HOME OR SELFCARE Is pt being admited?: No Does the pt Need Aspirin: No Condition: Stable Instructions: Acute Headache (ED) Additional Instructions: Please take medication as prescribed as needed. Follow-up with your primary care provider in the next 2-3 days. Return to the emergency room immediately for any new or worsening symptoms or symptoms are not improving. Prescriptions: Butalb/Acetaminophen/Caffeine [Fioricet 50-300-40 mg CAP] 1 cap PO Q8HR PRN #7 cap PRN Reason: headache Referrals: PRIMARY CARE, [Primary Care Provider] - 2-3 Days Time of Disposition: 03:37 Print Language: [place]
== END 2019-08-20 03:59 | disposition home or self-care (01) ==
LOC: ED 00:36
DX: R51 Headache (principal); H53.149 Visual discomfort, unspecified; I11.0 Hypertensive heart disease with heart failure; I50.9 Heart failure, unspecified; J45.909 Unspecified asthma, uncomplicated; Z95.5 Presence of coronary angioplasty implant and graft; Z79.899 Other long term (current) drug therapy
CPT/HCPCS: 96374; 96375; 99282; J1200; J2765

== ENCOUNTER 2019-10-29 13:20 | Emergency (ER) | payer MEDICAID ==
[2019-10-29] MEDS ORDERED: SODIUM CHLORIDE 0.9% 500 ML 500 ML IV ONE (13:32)
--- NOTE | 2019-10-29 13:42 | Emergency Department Report ---
Blank Doc - Documentation Documentation: 53-year-old male that presents with abdominal pain, fever, chills, n/v. This initial assessment/diagnostic orders/clinical plan/treatment(s) is/are subject to change based on patient's health status, clinical progression and re- assessment by fellow clinical providers in the ED. Further treatment and workup at subsequent clinical providers discretion. Patient/guardians urged not to elope from the ED as their condition may be serious if not clinically assessed and managed. Initial orders include: 1- Patient sent to MAIN ED for further evaluation and treatment 2- labs 3- UA
[2019-10-29] MEDS ORDERED: ACETAMINOPHEN 325 MG TAB PO ONE (13:44)
[2019-10-29] MEDS ORDERED: ACETAMINOPHEN 325 MG TAB ONE (13:47)
[2019-10-29 13:48] LABS: Basophils # (Auto) 0.1 K/mm3 (0.0-0.1); Basophils % (Auto) 0.9 % (0.0-1.8); Eosinophils % (Auto) 0.1 % (0.0-4.3); Hematocrit 37.9 % (35.5-45.6); Hemoglobin 12.6 gm/dl (11.8-15.2); Lymphocytes # (Auto) 1.4 K/mm3 (1.2-5.4); Lymphocytes % (Auto) 15.1 % (13.4-35.0); Mean Corpuscular HGB Conc 33 % (32-34); Mean Corpuscular Volume 81 fl (84-94); Monocytes # (Auto) 1.2 K/mm3 (0.0-0.8); Monocytes % (Auto) 13.1 % (0.0-7.3); Platelet Count 210 K/mm3 (140-440); Red Blood Count 4.67 M/mm3 (3.65-5.03); Red Cell Distribution Width 14.1 % (13.2-15.2)
[2019-10-29 13:57] LABS: INR 1.13 (0.87-1.13)
[2019-10-29 14:11] LABS: Albumin 3.8 g/dL (3.9-5); Calcium 8.8 mg/dL (8.4-10.2)
--- NOTE | 2019-10-29 14:15 | XRay Report ---
CHEST 1 VIEW INDICATION: possible Sepsis. COMPARISON: 10/04/2018 FINDINGS: Support devices: None. Heart: Within normal limits. Lungs/Pleura: Subtle infiltrate is suspected in the medial left upper lobe which could represent pneu monia. This is new since the previous exam. There is minor linear scarring or discoid atelectasis at the lung bases. No pleural fluid or pneumothorax. Additional findings: None. IMPRESSION: Subtle left upper lobe infiltrate is suspected. Signer Name: Carter Chen Jr, MD Signed: 10/29/2019 2:11 PM Workstation Name: [id number]
[2019-10-29] MEDS ORDERED: SODIUM CHLORIDE 0.9% 1000 ML 1,000 ML IV ONE (16:07)
[2019-10-29] MEDS ORDERED: PIPERACILLIN/TAZOBACTAM 3.375 3.375 GM/50 ML BAG IV ONE (16:07)
[2019-10-29] MEDS ORDERED: ONDANSETRON 4 MG/2 ML INJ IV ONE (16:07)
[2019-10-29] MEDS ORDERED: SODIUM CHLORIDE 0.9% 500 ML 500 ML ONE (16:08)
--- NOTE | 2019-10-29 16:19 | Emergency Department Report ---
ED Abdominal Pain HPI - General Chief Complaint: Nausea/Vomiting/Diarrhea Stated Complaint: STOMACH PAIN Time Seen by Provider: 10/29/19 13:36 Source: patient Mode of arrival: Ambulatory Limitations: No Limitations - History of Present Illness Initial Comments: Patient is 53 years old male with history of congestive heart failure, coronary artery disease and hypertension. Patient presented to the ER complaining of abdominal pain, diffuse with no radiation. Patient stated that pain started 6 days ago. Patient is complaining of nausea and vomiting. Patient stated that he is unable to keep anything down. Patient also complaining of fever and michael lucero diarrhea. Patient denied any recent travel. No chest pain or shortness of breath or cough. MD Complaint: abdominal pain Location: diffuse Radiation: none Migration to: no migration Severity scale (0 -10): 0 - Related Data Home Medications Medication Instructions Recorded Confirmed Last Taken ISOSORBIDE MONOnitrate [Imdur ER] 30 mg PO DAILY 09/13/18 10/05/18 Unknown Nitroglycerin [Nitrostat] 0.4 mg SL Q5M PRN 09/13/18 10/05/18 Unknown Previous Rx's Medication Instructions Recorded Last Taken Type Aspirin [Aspirin BABY CHEW TAB] 81 mg PO QDAY tab.chew 08/03/17 Unknown Rx Clopidogrel [Plavix] 75 mg PO QDAY #30 tablet 08/03/17 Unknown Rx Metoprolol [Lopressor TAB] 25 mg PO BID #60 tablet 08/03/17 Unknown Rx Pravastatin [Pravachol] 80 mg PO QHS #60 tablet 08/03/17 Unknown Rx Lisinopril [Zestril TAB] 2.5 mg PO QDAY #30 tablet 08/02/18 Unknown Rx Furosemide [Lasix TAB] 40 mg PO QDAY #30 tablet 09/15/18 Unknown Rx Amoxicillin/K Clav Tab [Augmentin 1 tab PO Q12HR 10 Days tab 10/07/18 Unknown Rx 875 mg] Butalb/Acetaminophen/Caffeine 1 cap PO Q8HR PRN #7 cap 08/20/19 Unknown Rx [Fioricet 50-300-40 mg CAP] Allergies Allergy/AdvReac Type Severity Reaction Status Date / Time No Known Allergies Allergy Verified 10/04/18 21:59 ED Review of Systems ROS: Stated complaint: STOMACH PAIN Other details as noted in HPI Comment: All other systems reviewed and negative Constitutional: chills, fever Respiratory: denies: cough, orthopnea, shortness of breath, SOB with exertion, SOB at rest, wheezing Cardiovascular: denies: chest pain, palpitations Gastrointestinal: abdominal pain, nausea, vomiting, diarrhea. denies: hematemesis, melena, hematochezia Musculoskeletal: denies: back pain Neurological: denies: headache, weakness, numbness, paresthesias, confusion, abnormal gait ED Past Medical Hx - Past Medical History Previous Medical History?: Yes Hx Hypertension: Yes Hx Heart Attack/AMI: Yes Hx Congestive Heart Failure: Yes Hx Diabetes: No Hx Asthma: Yes (childhood) Hx COPD: No Hx HIV: No - Surgical History Past Surgical History?: Yes Hx Coronary Stent: Yes (3) - Social History Smoking Status: Never Smoker Substance Use Type: None - Medications Home Medications: Home Medications Medication Instructions Recorded Confirmed Last Taken Type Aspirin [Aspirin BABY CHEW TAB] 81 mg PO QDAY tab.chew 08/03/17 10/05/18 Unknown Rx Clopidogrel [Plavix] 75 mg PO QDAY #30 tablet 08/03/17 10/05/18 Unknown Rx Metoprolol [Lopressor TAB] 25 mg PO BID #60 tablet 08/03/17 10/05/18 Unknown Rx Pravastatin [Pravachol] 80 mg PO QHS #60 tablet 08/03/17 10/05/18 Unknown Rx Lisinopril [Zestril TAB] 2.5 mg PO QDAY #30 tablet 08/02/18 10/05/18 Unknown Rx ISOSORBIDE MONOnitrate [Imdur ER] 30 mg PO DAILY 09/13/18 10/05/18 Unknown History Nitroglycerin [Nitrostat] 0.4 mg SL Q5M PRN 09/13/18 10/05/18 Unknown History Furosemide [Lasix TAB] 40 mg PO QDAY #30 tablet 09/15/18 10/05/18 Unknown Rx Amoxicillin/K Clav Tab [Augmentin 1 tab PO Q12HR 10 Days tab 10/07/18 Unknown Rx 875 mg] Butalb/Acetaminophen/Caffeine 1 cap PO Q8HR PRN #7 cap 08/20/19 Unknown Rx [Fioricet 50-300-40 mg CAP] ED Physical Exam - General Limitations: No Limitations General appearance: alert, in no apparent distress - Head Head exam: Present: atraumatic, normocephalic, normal inspection - Eye Eye exam: Present: normal appearance - ENT ENT exam: Present: mucous membranes dry - Neck Neck exam: Present: normal inspection, full ROM. Absent: tenderness, meningismus - Respiratory Respiratory exam: Present: normal lung sounds bilaterally - Cardiovascular Cardiovascular Exam: Present: regular rate, normal rhythm, normal heart sounds - GI/Abdominal GI/Abdominal exam: Present: soft, normal bowel sounds. Absent: distended, t enderness, guarding, rebound, rigid, organomegaly, mass, bruit, pulsatile mass, hernia - Extremities Exam Extremities exam: Present: normal inspection, full ROM, normal capillary refill. Absent: tenderness, pedal edema, calf tenderness - Back Exam Back exam: Present: normal inspection, full ROM. Absent: CVA tenderness (R), CVA tenderness (L), muscle spasm, paraspinal tenderness, vertebral tenderness - Neurological Exam Neurological exam: Present: alert, oriented X3, CN II-XII intact, normal gait, reflexes normal - Psychiatric Psychiatric exam: Present: normal mood - Skin Skin exam: Present: warm, intact, normal color ED Course Vital Signs 10/29/19 10/29/19 10/29/19 13:38 13:45 16:11 Temperature 102.9 F H 99.1 F Pulse Rate 107 H 90 Respiratory 20 20 16 Rate Blood Pressure 119/75 Blood Pressure 115/79 [Right] O2 Sat by Pulse 97 97 Oximetry 10/29/19 10/29/19 10/29/19 16:21 16:41 17:21 Temperature Pulse Rate 91 H 94 H 91 H Respiratory 15 19 17 Rate Blood Pressure 115/79 128/83 119/82 Blood Pressure [Right] O2 Sat by Pulse 97 95 96 Oximetry 10/29/19 17:41 Temperature Pulse Rate Respiratory 36 H Rate Blood Pressure 128/79 Blood Pressure [Right] O2 Sat by Pulse 94 Oximetry ED Medical Decision Making - Lab Data Result diagrams: 10/29/19 13:37 10/29/19 13:37 - Radiology Data Radiology results: report reviewed - Medical Decision Making Patient is 53 years old male with history of congestive heart failure, coronary artery disease and hypertension. Patient presented to the ER complaining of abdominal pain, diffuse with no radiation. Patient stated that pain started 6 days ago. Patient is complaining of nausea and vomiting. Patient stated that he is unable to keep anything down. Patient also complaining of fever and watery diarrhea. Patient denied any recent travel. No chest pain or shortness of breath or cough. Patient received normal saline, Zofran and Zosyn. Patient stated that he is feeling much better. No vomiting observed in the ER. Labs reviewed and show evidence of dehydration with a slightly elevated creatinine from his baseline. CT abdomen and pelvis is unremarkable. Patient given prescription for Zofran and Flagyl and advised to follow-up with his primary care physician in the next 2-3 days and to return to the ER if symptoms are not improved. Critical care attestation.: If time is entered above; I have spent that time in minutes in the direct care of this critically ill patient, excluding procedure time. ED Disposition Clinical Impression: Abdominal pain, Vomiting, Diarrhea Disposition: TO HOME OR SELFCARE Is pt being admited?: No Condition: Stable Instructions: Acute Abdominal Pain (ED), Acute Nausea and Vomiting (ED), Dehydration (ED) Referrals: PRIMARY CARE, [Referring] - 3-5 Days
[2019-10-29 17:30] LABS: Bilirubin,Urine NEG (Negative); Blood,Urine LG (Negative); Color,Urine Amber (Yellow); Mucus,Urine FEW /HPF
--- NOTE | 2019-10-29 19:10 | Cat Scan Report ---
CT abdomen pelvis wo con INDICATION: ABDOMINAL PAIN. TECHNIQUE: All CT scans at this location are performed using CT dose reduction for ALARA by means of automated e xposure control. COMPARISON: None available. FINDINGS: Lung bases are clear except for mild atelectasis. Liver, gallbladder, spleen, pancreas, kidneys and a drenals appear grossly negative on this noncontrast exam. Pelvis Normal appendix. Urinary bladder and distal ureters are negative. No free fluid or inflammatory pendleton e. No acute skeletal lesions. IMPRESSION: 1. No acute abnormalities. Signer Name: Obed Quiñones MD Signed: 10/29/2019 7:05 PM Workstation Name: [id number]
[2019-10-29 20:21] VITALS: BP 138/80
== END 2019-10-29 20:21 | disposition home or self-care (01) ==
LOC: ED 13:20
DX: R10.84 Generalized abdominal pain (principal); R19.7 Diarrhea, unspecified; R11.10 Vomiting, unspecified; I11.0 Hypertensive heart disease with heart failure; I50.9 Heart failure, unspecified; I25.2 Old myocardial infarction; J45.909 Unspecified asthma, uncomplicated; Z95.5 Presence of coronary angioplasty implant and graft; Z79.899 Other long term (current) drug therapy
CPT/HCPCS: 36415; 71046; 74176; 80053; 81001; 82140; 82805; 85025; 85610; 87040; 87086; 93005; 93010; 96361; 96365; 96375; 99285; J2405; J2543; J7030; J7040

== ENCOUNTER 2020-06-19 06:04 | Day surgery (SDC) | payer MEDICAID ==
[2020-06-19 07:36] LABS: Basophils # (Auto) 0.1 K/mm3 (0.0-0.1); Basophils % (Auto) 0.8 % (0.0-1.8); Eosinophils # (Auto) 0.4 K/mm3 (0.0-0.4); Eosinophils % (Auto) 4.2 % (0.0-4.3); Hematocrit 41.2 % (35.5-45.6); Hemoglobin 13.5 gm/dl (11.8-15.2); Lymphocytes # (Auto) 1.5 K/mm3 (1.2-5.4); Lymphocytes % (Auto) 17.4 % (13.4-35.0); Mean Corpuscular HGB Conc 33 % (32-34); Mean Corpuscular Volume 78 fl (84-94); Monocytes # (Auto) 0.9 K/mm3 (0.0-0.8); Monocytes % (Auto) 10.6 % (0.0-7.3); Platelet Count 292 K/mm3 (140-440); Red Blood Count 5.28 M/mm3 (3.65-5.03); Red Cell Distribution Width 16.5 % (13.2-15.2)
[2020-06-19 07:43] LABS: Calcium 9.1 mg/dL (8.4-10.2)
[2020-06-19 07:50] LABS: INR 0.94 (0.87-1.13)
[2020-06-19 07:51] LABS: Partial Thromboplastin Time 27.9 Sec. (24.2-36.6)
[2020-06-19] MEDS ORDERED: HEPARIN/NS 5000 UNIT/500ML 1,000 ML IR ONE (07:51)
[2020-06-19] MEDS ORDERED: SODIUM CHLORIDE 0.9% 500 ML 500 ML IV SCH (08:00)
[2020-06-19] MEDS: LIDOCAINE (2%) 20 MG/1 ML VIAL 20 ML MDV INFILTRATI ONE ×2 (09:00→09:12)
[2020-06-19] MEDS: MIDAZOLAM 2 MG/2 ML INJ ONE ×2 (09:01→09:05)
[2020-06-19] MEDS: HEPARIN 10,000 UNITS/10 ML VIAL ONE ×2 (09:01→09:14)
[2020-06-19] MEDS: fentaNYL 100 MCG/2 ML INJ ONE ×3 (09:01→09:14)
[2020-06-19] MEDS: VERAPAMIL 5 MG/2 ML INJ ONE ×2 (09:01→09:14)
[2020-06-19] MEDS: NITROGLYCERIN SYRINGE 3 ML ONE ×2 (09:02→09:14)
[2020-06-19 12:49] VITALS: BP 110/68
--- NOTE | 2020-06-19 12:49 | Cardiac Catherization Report ---
ORDERING PHYSICIAN: Allen Amato MD CLINICAL INFORMATION: This is a 54-year-old -[place] gentleman with known history of renal insufficiency, history of coronary artery disease, stent, has been having severe mitral regurgitation with CHF symptoms, being evaluated for mitral valve repair or replacement. The patient is here for left heart catheterization. So, procedure was done with moderate sedation started 9:05 a.m., finished at 9:22 a.m., which is 17 minutes of moderate sedation. Procedure was done via the right radial artery, sterile technique, local anesthesia, 6-Central [place] radial sheath was used and so left system engaged JL3.5 catheter. Left main is large and patent, bifurcates into large LAD, proximal is patent. Small diagonal 1, mid LAD to distal has 3 tandem lesions. Prior to diagonal 2, there is a 70% lesion. Right after diagonal 2, which is small to medium caliber vessel, which is patent, has an 80% lesion. The mid to distal LAD has another 80% lesion. These were all medium caliber vessel. Circumflex, proximal to mid has a 60% lesion prior to the bifurcation of OM1 and OM2. OM1 stent is patent. OM2 is patent with mild luminal irregularities. Both small to medium caliber vessels. RCA engaged with JR4 is a large dominant vessel, proximal patent, mid 30%, mid to distal stent patent, bifurcate distal RCA patent. PDA is a medium caliber, PLV is a medium caliber vessel with multiple branches proximal 80% lesion. LV gram ____ shows relatively normal LV function, LVEDP of 35-40 mmHg, LV is 104 mmHg. Aortic is 102/70 mmHg. No gradient across the aortic valve on pullback. The patient used Visipaque with 30 mL of dye for the case. 5-Central African catheters all taken under 6-Central African radial sheath was discontinued. Radial band applied. No hematoma, no bleeding. SUMMARY: Left main patent, LAD. Three tandem lesions in the mid to distal LAD of 70-80%, diagonal 1 small, diagonal 2 small to medium caliber and patent. Circumflex mid 60% with OM1 stent patent. OM2 patent, medium caliber, mild luminal irregularities. RCA large, dominant, mid stent patent. Prior to that, has a 30% lesion. PDA patent, PLV 80% lesion. Relatively normal LV function, elevated left end-diastolic pressure. Discussed this in detail with the patient and the patient's primary greens cutter. JOB# [id number] XUAN/COBY
--- NOTE | 2020-06-19 13:45 | Short Stay Summary ---
Short Stay Documentation Date of service: 06/19/20 - History H&P: obtained from office - Allergies and Medications Current Medications: Allergies No Known Allergies Allergy (Verified 10/04/18 21:59) Home Medications Medication Instructions Recorded Confirmed Last Taken Type Aspirin [Aspirin BABY CHEW TAB] 81 mg PO QDAY tab.chew 08/03/17 06/19/20 06/18/20 Rx 81 mg Clopidogrel [Plavix] 75 mg PO QDAY #30 tablet 08/03/17 06/19/20 06/18/20 20:00 Rx 75 mg Metoprolol [Lopressor TAB] 25 mg PO BID #60 tablet 08/03/17 06/19/20 06/19/20 04:00 Rx lisinopriL [Zestril TAB] 2.5 mg PO QDAY #30 tablet 08/02/18 06/19/20 06/19/20 04:00 Rx ISOSORBIDE MONOnitrate [Imdur ER] 30 mg PO DAILY 09/13/18 06/19/20 06/16/20 History 30 mg Nitroglycerin [Nitrostat] 0.4 mg SL Q5M PRN 09/13/18 06/19/20 06/12/20 History 0.4mg Atorvastatin [Lipitor Tab] 80 mg PO QHS 06/19/20 06/19/20 06/18/20 History 80 mg Furosemide [Lasix TAB] 80 mg PO BID 06/19/20 06/19/20 06/18/20 History 80 mg Potassium Chloride [K-Dur] 20 meq PO TID 06/19/20 06/19/20 06/18/20 History 20 meq metOLazone [Zaroxolyn] 2.5 mg PO QDAY 06/19/20 06/19/20 06/14/20 History 2.5mg Active Medications Sodium Chloride (Nacl 0.9% 500 Ml) 500 mls @ 50 mls/hr IV DIRECT MURALI Stop: 06/19/20 17:59 Last Admin: 06/19/20 08:35 Dose: 50 mls/hr Documented by: - Brief post op/procedure progress note Date of procedure: 06/19/20 Pre-op diagnosis: CAD Post-op diagnosis: same Procedure: LHC - see dictated cath report Anesthesia: local Estimated blood loss: none Condition: stable - Disposition Condition at discharge: Good Disposition: DC-01 TO HOME OR SELFCARE - Discharge Diagnoses (1) CAD (coronary artery disease) Status: Chronic (2) Stented coronary artery Status: Chronic (3) Renal insufficiency Status: Chronic (4) Moderate to severe mitral regurgitation Status: Chronic Short Stay Discharge Plan Activity: advance as tolerated Diet: low fat, low cholesterol, low salt Wound: open to air, keep clean and dry, per your surgeon's advice Follow up with: PRIMARY CARE, [Primary Care Provider] - 7 Days Forms: CardCath PCI D/C Instructions
== END 2020-06-19 12:40 | disposition home or self-care (01) ==
LOC: CATH 06:04 → CATHLABREC 06:04
PROVIDERS: ATTEND Internal Medicine
DX: I34.0 Nonrheumatic mitral (valve) insufficiency (principal); I25.10 Atherosclerotic heart disease of native coronary artery without angina pectoris; E78.5 Hyperlipidemia, unspecified; I25.2 Old myocardial infarction; I11.0 Hypertensive heart disease with heart failure; I50.22 Chronic systolic (congestive) heart failure; F17.210 Nicotine dependence, cigarettes, uncomplicated; J45.909 Unspecified asthma, uncomplicated; Z95.5 Presence of coronary angioplasty implant and graft; Z79.899 Other long term (current) drug therapy; Z79.82 Long term (current) use of aspirin; Z87.891 Personal history of nicotine dependence; Z82.49 Family history of ischemic heart disease and other diseases of the circulatory system
CPT/HCPCS: 36415; 80048; 85025; 85610; 85730; 93005; 93458; 99156; C1894; J1644; J2250; J3010; J7040; Q9967

== ENCOUNTER 2021-05-16 07:14 | Inpatient (IN) | payer MEDICAID ==
[2021-05-16] MEDS ORDERED: ASPIRIN 325 MG TAB PO ONE (07:32)
[2021-05-16 07:50] LABS: Basophils # (Auto) 0.1 K/mm3 (0.0-0.1); Basophils % (Auto) 1.2 % (0.0-1.8); Eosinophils # (Auto) 0.7 K/mm3 (0.0-0.4); Eosinophils % (Auto) 9.1 % (0.0-4.3); Hematocrit 41.2 % (35.5-45.6); Hemoglobin 13.9 gm/dl (11.8-15.2); Lymphocytes # (Auto) 2.4 K/mm3 (1.2-5.4); Lymphocytes % (Auto) 30.4 % (13.4-35.0); Mean Corpuscular HGB Conc 34 % (32-34); Mean Corpuscular Volume 85 fl (84-94); Monocytes # (Auto) 0.4 K/mm3 (0.0-0.8); Monocytes % (Auto) 5.6 % (0.0-7.3); Platelet Count 222 K/mm3 (140-440); Red Blood Count 4.85 M/mm3 (3.65-5.03)
--- NOTE | 2021-05-16 08:01 | XRay Report ---
CHEST 2 VIEWS INDICATION / CLINICAL INFORMATION: cp. Chest pain FINDINGS: SUPPORT DEVICES: None. HEART / MEDIASTINUM: No significant abnormality. LUNGS / PLEURA: Mild airspace disease within the right lower lung Signer Name: Jarrod Woods MD Signed: 05/16/2021 7:57 AM Workstation Name: [id number]
[2021-05-16 08:13] LABS: Alanine Aminotransferase 25 units/L (7-56); BUN/Creatinine Ratio 7; Blood Urea Nitrogen 11 mg/dL (9-20); Calcium 8.6 mg/dL (8.4-10.2); Hemolysis Index 16
--- NOTE | 2021-05-16 10:46 | Emergency Department Report ---
ED Chest Pain HPI - General Chief Complaint: Chest Pain Stated Complaint: POSS CLOT Time Seen by Provider: 05/16/21 10:28 Source: patient Mode of arrival: Ambulatory Limitations: No Limitations - History of Present Illness Initial Comments: This is a 55-year-old -[place] male who presents to the emergency department saying that he was called by his wash house worker last night, Dr. Amato, and told to come to the emergency department. The patient had a test yesterday in their office, that sounds like an echocardiogram, and apparently the nurse or tech who performed the study found concern for a blood clot in the heart. Dr. Amato called the patient himself last night and said that he reviewed the study and that the patient needs to come to the emergency department. The patient complains of chronic left-sided chest pain since his open heart surgery in which he had bypass and valve replacement. Patient has a history of CHF, coronary artery disease with previous [place] and multiple cardiac stents, hypertension. Patient says that he has been wearing a LifeVest and they are evaluating him for the need of a internal AICD/pacemaker. - Related Data Home Medications Medication Instructions Recorded Confirmed Last Taken AtorvaSTATin [Lipitor] 40 mg PO QHS 05/16/21 05/16/21 Unknown Cholecalciferol (Vitamin D3) 2,000 unit PO QDAY 05/16/21 05/16/21 Unknown [Vitamin D3 2,000 UNIT CAP] Ferrous Sulfate [Feosol] 325 mg PO QDAY 05/16/21 05/16/21 Unknown Furosemide [Lasix TAB] 40 mg PO QDAY 05/16/21 05/16/21 Unknown Furosemide [Lasix] 40 mg PO QDAY 05/16/21 05/16/21 Unknown ISOSORBIDE MONOnitrate [Imdur ER] 30 mg PO BID 05/16/21 05/16/21 Unknown Metoprolol Succinate [Toprol Xl] 25 mg PO QDAY 05/16/21 05/16/21 Unknown Potassium Chloride [K-Dur] 20 meq PO QDAY 05/16/21 05/16/21 Unknown Sacubitril/Valsartan [Entresto 24 1 tab PO BID 05/16/21 05/16/21 Unknown - 26 mg] Allergies Allergy/AdvReac Type Severity Reaction Status Date / Time No Known Allergies Allergy Verified 11/14/18 21:59 Heart Score - HEART Score History: Slightly suspicious EKG: Normal Age: 45-65 Risk factors: > 3 risk factors or hx of atherosclerotic disease Troponin: < normal limit HEART Score: 3 - EKG Read Time Time EKG Completed: 07:29 EKG Read Time: 07:44 - Critical Actions Critical Actions: 0-3 pts:0.9-1.7%risk of adverse cardiac event.Candidate for discharge ED Review of Systems ROS: Stated complaint: POSS CLOT Other details as noted in HPI Comment: All other systems reviewed and negative Constitutional: denies: chills, fever Eyes: denies: eye pain, vision change ENT: denies: ear pain, throat pain Respiratory: shortness of breath (Intermittent). denies: cough Cardiovascular: chest pain (Chronic). denies: palpitations Gastrointestinal: denies: abdominal pain, vomiting Genitourinary: denies: dysuria, discharge Musculoskeletal: denies: back pain, arthralgia Skin: denies: rash, lesions Neurological: denies: headache, weakness ED Past Medical Hx - Past Medical History Previous Medical History?: Yes Hx Hypertension: Yes Hx Heart Attack/AMI: Yes (2017,2018) Hx Congestive Heart Failure: Yes Hx Diabetes: No Hx Asthma: Yes (childhood) Hx COPD: No Hx HIV: No - Surgical History Past Surgical History?: Yes Hx Coronary Stent: Yes (3) - Social History Smoking Status: Former Smoker - Medications Home Medications: Home Medications Medication Instructions Recorded Confirmed Last Taken Type AtorvaSTATin [Lipitor] 40 mg PO QHS 05/16/21 05/16/21 Unknown History Cholecalciferol (Vitamin D3) 2,000 unit PO QDAY 05/16/21 05/16/21 Unknown History [Vitamin D3 2,000 UNIT CAP] Ferrous Sulfate [Feosol] 325 mg PO QDAY 05/16/21 05/16/21 Unknown History Furosemide [Lasix TAB] 40 mg PO QDAY 05/16/21 05/16/21 Unknown History Furosemide [Lasix] 40 mg PO QDAY 05/16/21 05/16/21 Unknown History ISOSORBIDE MONOnitrate [Imdur ER] 30 mg PO BID 05/16/21 05/16/21 Unknown History Metoprolol Succinate [Toprol Xl] 25 mg PO QDAY 05/16/21 05/16/21 Unknown History Potassium Chloride [K-Dur] 20 meq PO QDAY 05/16/21 05/16/21 Unknown History Sacubitril/Valsartan [Entresto 24 1 tab PO BID 05/16/21 05/16/21 Unknown History - 26 mg] ED Physical Exam - General Limitations: No Limitations - Other Other exam information: GENERAL: The patient is well-developed well-nourished. HENT: Normocephalic. Atraumatic. Patient has moist mucous membranes. EYES: Extraocular motions are intact. Pupils equal reactive to light bilaterally. NECK: Supple. Trachea is midline. CHEST/LUNGS: Clear to auscultation. There is no respiratory distress noted. HEART/CARDIOVASCULAR: Regular. There is no tachycardia. There is no murmur. ABDOMEN: Abdomen is soft, nontender. Patient has normal bowel sounds. SKIN: Skin is warm and dry. NEURO: The patient is awake, alert, and oriented. The patient is cooperative. The patient has no focal neurologic deficits. Normal speech. MUSCULOSKELETAL: There is no tenderness or deformity. There is no limitation range of motion. ED Course Vital Signs 05/16/21 07:23 Temperature 98.1 F Pulse Rate 72 Respiratory 12 Rate Blood Pressure 147/77 O2 Sat by Pulse 98 Oximetry - Consultations Consultation #1: 05/16/21 12:[address] Duque, wash house worker on-call for [facility] cardiology. He has instructed me to start the patient on heparin and they will see the patient as a consult. DANIELLE score - Danielle Score Age > 65: (0) No Aspirin use within the Past 7 Days: (1) Yes 3 or more CAD Risk Factors: (1) Yes 2 or more Angina events in past 24 hrs: (1) Yes Known CAD with more than 50% Stenosis: (1) Yes Elevated Cardiac Markers: (0) No ST Deviation Greater than 0.5mm: (0) No DANIELLE Score: 4 ED Medical Decision Making - Lab Data Result diagrams: 05/16/21 07:35 05/16/21 07:35 - EKG Data -: EKG Interpreted by Me EKG shows normal: sinus rhythm, axis, intervals (Mild prolongation of AK interval), QRS complexes, ST-T waves Rate: normal - EKG Data When compared to previous EKG there are: no significant change Interpretation: unchanged when compared t (06/19/20) - Radiology Data Radiology results: image reviewed interpreted by me: Chest x-ray does not show any acute process. There are no pleural effusions, obvious pneumonia and there is no pneumothorax. No widened mediastinum. - Medical Decision Making This patient was sent in by his wash house worker after an imaging study, that sounds like an echocardiogram, was done in the office yesterday and showed a blood clot in the heart. Cardiology contacted and consulted. They have recommended heparin. Labs have been mostly unremarkable thus far including CBC, metabolic panel, coags and negative troponins. Chest x-ray does not show any pleural effusions, pneumothorax, widened mediastinum. Patient has been accepted for admission by the hospitalist, Dr. Choudhary. Critical Care Time: No Critical care attestation.: If time is entered above; I have spent that time in minutes in the direct care of this critically ill patient, excluding procedure time. ED Disposition Clinical Impression: Abnormal echocardiogram, History of coronary artery disease, Chest pain, Stented coronary artery Disposition: 09 OP ADMIT IP TO THIS HOSP Is pt being admited?: Yes Condition: Fair Time of Disposition: 15:15
[2021-05-16] MEDS ORDERED: HEPARIN 10,000 UNITS/10 ML VIAL IV ONE (11:12)
[2021-05-16] MEDS ORDERED: HEPARIN 10,000 UNITS/10 ML VIAL IV PRN (11:12)
[2021-05-16 11:44] LABS: INR 0.97 (0.87-1.13); Partial Thromboplastin Time 28.6 Sec. (24.2-36.6)
--- NOTE | 2021-05-16 12:13 | History and Physical Report ---
History of Present Illness Chief complaint: My heart doctor told me to get checked out History of present illness: 55 YO Male with HTN, [place], Systolic CHF with LifeVest in place, Asthma, CAD S/P Stent Placement, Valvular Heart Disease S/P Valve replacement presents to ED for evaluation. Patient reports "my heart doctor told me to come in and get checked out". Patient states that he was seen and evaluated his cashier clerk office on 05/15/2021 and underwent an echocardiogram. Patient was notified by his cashier clerk last night and instructed to seek further care due to the incidental finding of an intracardiac thrombus. Patient transported to [facility] via private vehicle for further care and evaluation of the aforementioned symptoms. Patient seen and evaluated in the emergency department. All lab and imaging mary dies reviewed. Patient outpatient echocardiogram revealed an intracardiac thrombus. Patient initiated on therapeutic anticoagulation and admitted to telemetry. Patient denies fever, chills, chest pain, palpitation, productive cough, skin rash, recent ill contacts, known exposure to COVID-19. Prior admission on 10/05/2018 reviewed. All medication listed at time of admission has been reconciled. Cardiology team consulted in ED. Past History Past Medical History: acute [place], heart failure, hypertension Past Surgical History: valve replacement, CABG Social history: single. denies: smoking, alcohol abuse, prescription drug abuse Family history: CAD, hypertension Medications and Allergies Allergies Allergy/AdvReac Type Severity Reaction Status Date / Time No Known Allergies Allergy Verified 10/04/18 21:59 Home Medications Medication Instructions Recorded Confirmed Last Taken Type AtorvaSTATin [Lipitor] 40 mg PO QHS 05/16/21 05/16/21 Unknown History Cholecalciferol (Vitamin D3) 2,000 unit PO QDAY 05/16/21 05/16/21 Unknown History [Vitamin D3 2,000 UNIT CAP] Ferrous Sulfate [Feosol] 325 mg PO QDAY 05/16/21 05/16/21 Unknown History Furosemide [Lasix TAB] 40 mg PO QDAY 05/16/21 05/16/21 Unknown History Furosemide [Lasix] 40 mg PO QDAY 05/16/21 05/16/21 Unknown History ISOSORBIDE MONOnitrate [Imdur ER] 30 mg PO BID 05/16/21 05/16/21 Unknown History Metoprolol Succinate [Toprol Xl] 25 mg PO QDAY 05/16/21 05/16/21 Unknown History Potassium Chloride [K-Dur] 20 meq PO QDAY 05/16/21 05/16/21 Unknown History Sacubitril/Valsartan [Entresto 24 1 tab PO BID 05/16/21 05/16/21 Unknown History - 26 mg] Active Meds: Active Medications Heparin Sodium (Porcine) (Heparin 10,000 Units/10 Ml Vial) 4,500 unit 40 unit/kg (4500 unit) IV Q6H PRN PRN Reason: Anti-Xa Assay < 0.1 units/ml Heparin Sodium/Sodium Chloride (Heparin/ 0.45% Nacl-25,000 Unit/500 Ml) 25,000 unit in 500 mls @ 30 mls/hr IV TITR MURALI; Protocol Review of Systems Constitutional: no weight loss, no weight gain, no chills, no sweats Ears, nose, mouth and throat: no ear pain, no tinnitis, no nose pain, no nasal congestion, no nasal discharge Cardiovascular: no chest pain, no palpitations, no edema, no syncope Respiratory: no cough Gastrointestinal: no abdominal pain, no diarrhea, no change in bowel habits, no hematemesis, no coffee ground emesis Genitourinary Male: no dysuria, no discharge, no urinary frequency, no nocturia Rectal: no pain, no incontinence, no bleeding Musculoskeletal: no neck stiffness, no neck pain, no shooting arm pain, no low back pain Integumentary: no rash, no pruritis, no redness, no sores, no wounds, no jaundice Neurological: no head injury, no paralysis, no weakness, no numbness, no tingling, no seizures, no tremors, no ataxia Psychiatric: no anxiety, no memory loss, no sleep disturbances, no insomnia, no change in appetite, no change in libido, no disorientation, no hallucinations Endocrine: no heat intolerance, no polyphagia, no polydipsia, no polyuria, no nocturia, no excessive sweating, no flushing Hematologic/Lymphatic: no easy bruising, no easy bleeding, no lymphadenopathy, no lymphedema Allergic/Immunologic: no urticaria, no allergic rhinitis, no wheezing, no persistent infections, no anaphylaxis, no angioedema Exam - Constitutional Vitals: Temp Pulse Resp BP Pulse Ox 98.1 F 72 12 147/77 98 05/16/21 07:23 05/16/21 07:23 05/16/21 07:23 05/16/21 07:23 05/16/21 07:23 General appearance: Present: mild distress - EENT Eyes: Present: PERRL ENT: hearing intact, clear oral mucosa - Neck Neck: Present: supple, normal ROM - Respiratory Respiratory effort: normal Respiratory: bilateral: CTA - Cardiovascular Heart Sounds: Present: S1 & S2. Absent: rub, click - Extremities Extremities: pulses symmetrical, No edema Peripheral Pulses: within normal limits - Abdominal General gastrointestinal: Present: soft, non-tender, non-distended, normal bowel sounds Male genitourinary: Present: normal - Integumentary Integumentary: Present: clear, warm, dry - Musculoskeletal Musculoskeletal: gait normal, strength equal bilaterally - Psychiatric Psychiatric: appropriate mood/affect, intact judgment & insight - Neurologic Neurologic: CNII-XII intact, moves all extremities HEART Score - HEART Score EKG: Normal Age: 45-65 Risk factors: > 3 risk factors or hx of atherosclerotic disease Troponin: Troponin T < 0.010 ng/mL (0.00-0.029) 05/16/21 10:28 Troponin: < normal limit - Critical Actions Critical Actions: 0-3 pts:0.9-1.7%risk of adverse cardiac event.Candidate for discharge Results - Labs CBC & Chem 7: 05/16/21 07:35 05/16/21 07:35 Labs: Abnormal lab results 05/16/21 05/16/21 Range/Units 07:35 07:35 Eos % (Auto) 9.1 H (0.0-4.3) % Eos # (Auto) 0.7 H (0.0-0.4) K/mm3 Creatinine 1.5 H (0.8-1.3) mg/dL Glucose 132 H (75-100) mg/dL Assessment and Plan - Patient Problems (1) Intracardiac thrombus Current Visit: Yes Status: Acute Plan to address problem: Echocardiogram conducted in cashier clerk office, therapeutic anticoagulation, supportive care. Telemetry monitoring. (2) CHF (congestive heart failure) Current Visit: Yes Status: Acute Qualifiers: Heart failure type: systolic Heart failure chronicity: acute Qualified Code(s): I50.21 - Acute systolic (congestive) heart failure Plan to address problem: Strict I/O, monitor urine output every shift, daily weight, afterload reduction, blood pressure control, cardiology team consulted in ED. Further care as per cardiology team (3) Hypertension Current Visit: Yes Status: Acute Qualifiers: Hypertension type: essential hypertension Qualified Code(s): I10 - Essential (primary) hypertension Plan to address problem: Monitor blood pressure every shift, continue medical management (4) Valvular heart disease Current Visit: Yes Status: Acute Plan to address problem: Supportive care, therapeutic anticoagulation, cardiology team consulted (5) DVT prophylaxis Current Visit: Yes Status: Acute Plan to address problem: SCD to bilateral lower extremities while in bed, continue therapeutic anticoagulation
[2021-05-16] MEDS ORDERED: ALBUTEROL 2.5 MG/3 ML NEBU IH PRN (12:15)
[2021-05-16] MEDS ORDERED: ONDANSETRON 4 MG/2 ML INJ IV PRN (12:15)
[2021-05-16] MEDS ORDERED: ACETAMINOPHEN 325 MG TAB PO PRN (12:15)
[2021-05-16] MEDS: HEPARIN/ 0.45% NACL DRIP 25,000 UNIT/500 ML BAG IV SCH ×2 (12:48→22:22)
--- NOTE | 2021-05-16 22:55 | Consultation ---
DATE OF CONSULTATION: 05/16/2021 REASON FOR CONSULTATION: Advice and opinion regarding left atrial thrombus. PRIMARY SIEBEL CONSULTANT: Dr. Allen Amato. DATE OF SERVICE: 05/16/2021. HISTORY OF PRESENT ILLNESS: The patient is a pleasant 55-year-old gentleman who was seen in the office last week by Dr. Amato and got an echocardiogram yesterday, which revealed a left atrial thrombus, probably not involving the mitral valve. The patient is seen in the Emergency Room. He is asymptomatic, doing well. The patient has a history of PCI of OM here in 07/2018, found to have severe mitral regurgitation, thought to be ischemic, on 07/30/2020 he underwent bioprosthetic valve replacement and LONGO to LAD. This was done by Dr. Plata. Postoperative course was uncomplicated. The patient has severe cardiomyopathy and now is found to have left atrial thrombus. Not on systemic anticoagulation. Again, the patient is seen in the Emergency Room. No symptoms. Feels well. No syncope or presyncope. No stroke-like symptoms. No chest pain. PAST MEDICAL HISTORY: As aforementioned. ALLERGIES: No known drug, food or environmental allergies. INPATIENT AND OUTPATIENT MEDICATIONS: Reviewed. REVIEW OF SYSTEMS: As per HPI. PHYSICAL EXAMINATION: VITAL SIGNS: Blood pressure is 140/70. GENERAL: He is afebrile. Sinus rhythm on telemetry. HEENT: Sclerae are anicteric. PERRLA. NECK: Supple, no masses. No JVD. CHEST: Clear to auscultation bilaterally. Good air movement. CARDIAC: Regular rate and rhythm, S1, S2. ABDOMEN: Soft, nontender, nondistended. Normoactive bowel sounds in 4 quadrants. No mass or bruits. EXTREMITIES: No cyanosis, clubbing, edema. Good peripheral pulses. SKIN: Intact. No rashes. LABORATORY DATA: CBC and BMP are unremarkable. Troponin negative x 2. Coags are normal. EKG reveals sinus rhythm, first-degree AV block. IMPRESSION: In summary, the patient is a pleasant 55-year-old gentleman. 1. Likely new left atrial thrombus. 2. Status post bioprosthetic mitral valve replacement in 08/2020. 3. History of coronary artery disease, status post PCI of OM in 2018 and LONGO to LAD during mitral valve replacement. 4. History of ischemic dilated cardiomyopathy. PLAN: At this point, the patient is clinically stable. Started on IV heparin, continue current medications, may consider a transesophageal echocardiogram prior to discharge. Thank you for this consultation. We will be happy following with you. TID: [id number] RECEIPT: [id number] ARUNA/AMINA
[2021-05-17 05:33] LABS: Basophils # (Auto) 0.1 K/mm3 (0.0-0.1); Eosinophils # (Auto) 0.6 K/mm3 (0.0-0.4); Eosinophils % (Auto) 7.5 % (0.0-4.3); Hemoglobin 13.1 gm/dl (11.8-15.2); Lymphocytes # (Auto) 2.6 K/mm3 (1.2-5.4); Lymphocytes % (Auto) 31.6 % (13.4-35.0); Mean Corpuscular HGB Conc 34 % (32-34); Mean Corpuscular Volume 85 fl (84-94); Monocytes # (Auto) 0.6 K/mm3 (0.0-0.8); Monocytes % (Auto) 6.8 % (0.0-7.3); Platelet Count 200 K/mm3 (140-440); Red Blood Count 4.61 M/mm3 (3.65-5.03); Red Cell Distribution Width 14.2 % (13.2-15.2)
[2021-05-17 05:53] LABS: Alanine Aminotransferase 25 units/L (7-56); Albumin 3.5 g/dL (3.9-5); BUN/Creatinine Ratio 8; Blood Urea Nitrogen 11 mg/dL (9-20); Calcium 8.2 mg/dL (8.4-10.2); Hemolysis Index 5
--- NOTE | 2021-05-17 08:57 | Progress Note ---
Assessment and Plan Assessment and plan: Intracardiac thrombus Acute on chronic systolic heart failure. Echocardiogram performed in August 2018 revealed an ejection fraction of 4550 percent with severe MR Coronary artery disease. In July 2017, he suffered a STEMI and received PCI to his RCA. In July 2018, he presented with NSTEMI and received PCI to OM1. On 09/14/2018, he had a negative stress test. Severe mitral regurgitation Hypertension 05/17/2021. Continue IV heparin drip. Await cardiology consultation. History Interval history: No new issues overnight Hospitalist Physical - Constitutional Vitals: Temp Pulse Resp BP Pulse Ox 98.2 F 75 19 133/80 97 05/17/21 08:11 05/17/21 08:11 05/17/21 08:11 05/17/21 08:11 05/17/21 08:11 General appearance: Present: mild distress - EENT Eyes: Present: PERRL, EOM intact ENT: hearing intact, clear oral mucosa, dentition normal - Neck Neck: Present: supple, normal ROM - Respiratory Respiratory effort: normal Respiratory: bilateral: CTA - Cardiovascular Rhythm: regular Heart Sounds: Present: S1 & S2. Absent: gallop, rub - Extremities Extremities: no ischemia, No edema, Full ROM - Abdominal General gastrointestinal: soft, non-tender, non-distended, normal bowel sounds - Integumentary Integumentary: Present: clear, warm, dry - Neurologic Neurologic: CNII-XII intact, moves all extremities HEART Score - HEART Score EKG: Normal Age: 45-65 Risk factors: > 3 risk factors or hx of atherosclerotic disease Troponin: Troponin T < 0.010 ng/mL (0.00-0.029) 05/16/21 14:18 Troponin: < normal limit - Critical Actions Critical Actions: 0-3 pts:0.9-1.7%risk of adverse cardiac event.Candidate for discharge Results - Labs CBC & Chem 7: 05/17/21 04:43 05/17/21 04:43 Labs: Laboratory Last Values WBC 8.2 K/mm3 (4.5-11.0) 05/17/21 04:43 RBC 4.61 M/mm3 (3.65-5.03) 05/17/21 04:43 Hgb 13.1 gm/dl (11.8-15.2) 05/17/21 04:43 Hct 39.0 % (35.5-45.6) 05/17/21 04:43 MCV 85 fl (84-94) 05/17/21 04:43 MCH 29 pg (28-32) 05/17/21 04:43 MCHC 34 % (32-34) 05/17/21 04:43 RDW 14.2 % (13.2-15.2) 05/17/21 04:43 Plt Count 200 K/mm3 (140-440) 05/17/21 04:43 Lymph % (Auto) 31.6 % (13.4-35.0) 05/17/21 04:43 [place] % (Auto) 6.8 % (0.0-7.3) 05/17/21 04:43 Eos % (Auto) 7.5 % (0.0-4.3) H 05/17/21 04:43 Baso % (Auto) 1.0 % (0.0-1.8) 05/17/21 04:43 Lymph # (Auto) 2.6 K/mm3 (1.2-5.4) 05/17/21 04:43 [place] # (Auto) 0.6 K/mm3 (0.0-0.8) 05/17/21 04:43 Eos # (Auto) 0.6 K/mm3 (0.0-0.4) H 05/17/21 04:43 Baso # (Auto) 0.1 K/mm3 (0.0-0.1) 05/17/21 04:43 Seg Neutrophils % 53.1 % (40.0-70.0) 05/17/21 04:43 Seg Neutrophils # 4.4 K/mm3 (1.8-7.7) 05/17/21 04:43 PT 13.5 Sec. (12.2-14.9) 05/16/21 11:08 INR 0.97 (0.87-1.13) 05/16/21 11:08 APTT 28.6 Sec. (24.2-36.6) 05/16/21 11:08 Heparin Anti-Xa Level 0.96 U.I./ml (0.3-0.7) H 05/17/21 07:32 Sodium 140 mmol/L (137-145) 05/17/21 04:43 Potassium 3.5 mmol/L (3.6-5.0) L 05/17/21 04:43 Chloride 107.9 mmol/L (98-107) H 05/17/21 04:43 Carbon Dioxide 23 mmol/L (22-30) 05/17/21 04:43 Anion Gap 13 mmol/L 05/17/21 04:43 BUN 11 mg/dL (9-20) 05/17/21 04:43 Creatinine 1.3 mg/dL (0.8-1.3) 05/17/21 04:43 Estimated GFR > 60 ml/min 05/17/21 04:43 BUN/Creatinine Ratio 8 % 05/17/21 04:43 Glucose 119 mg/dL (75-100) H 05/17/21 04:43 Calcium 8.2 mg/dL (8.4-10.2) L 05/17/21 04:43 Total Bilirubin 0.30 mg/dL (0.1-1.2) 05/17/21 04:43 AST 18 units/L (5-40) 05/17/21 04:43 ALT 25 units/L (7-56) 05/17/21 04:43 Alkaline Phosphatase 87 units/L (35-129) 05/17/21 04:43 Troponin T < 0.010 ng/mL (0.00-0.029) 05/16/21 14:18 Total Protein 6.2 g/dL (6.3-8.2) L 05/17/21 04:43 Albumin 3.5 g/dL (3.9-5) L 05/17/21 04:43 Albumin/Globulin Ratio 1.3 % 05/17/21 04:43 Steiner/IV: Voiding Method Urinal Active Medications - Current Medications Current Medications: Generic Name Dose Route Start Last Admin Trade Name Freq PRN Reason Stop Dose Admin Acetaminophen 650 mg 05/16/21 12:15 Acetaminophen 325 Mg Tab PO Q4H PRN Pain MILD(1-3)/Fever >100.5/ADRIAN Albuterol 2.5 mg 05/16/21 12:15 Albuterol 2.5 Mg/3 Ml Nebu IH Q4HRT PRN Shortness Of Breath Aspirin 325 mg 05/17/21 10:00 Aspirin 325 Mg Tab PO QDAY MURALI Atorvastatin Calcium 80 mg 05/16/21 22:00 05/16/21 22:18 Atorvastatin 40 Mg Tab PO 80 mg QHS MURALI Administration Heparin Sodium (Porcine) 4,500 unit 05/16/21 11:12 Heparin 10,000 Units/10 Ml Vial 40 unit/kg (4500 unit) IV Q6H PRN Anti-Xa Assay < 0.1 units/ml Heparin Sodium/Sodium Chloride 25,000 unit in 500 mls @ 30 mls/hr 05/16/21 12:00 05/16/21 22:22 Heparin/ 0.45% Nacl-25,000 Unit/500 Ml IV 1,500 units/hr TITR MURALI 30 mls/hr Administration Protocol 1,500 UNITS/HR Ondansetron HCl 4 mg 05/16/21 12:15 Ondansetron 4 Mg/2 Ml Inj IV Q8H PRN Nausea And Vomiting Sodium Chloride 10 ml 05/16/21 22:00 05/16/21 22:21 Sodium Chloride 0.9% 10 Ml Flush Syringe IV 10 ml BID MURALI Administration Sodium Chloride 10 ml 05/16/21 12:15 Sodium Chloride 0.9% 10 Ml Flush Syringe IV PRN PRN LINE FLUSH
[2021-05-17] MEDS: HEPARIN/ 0.45% NACL DRIP 25,000 UNIT/500 ML BAG IV SCH ×2 (10:25→19:19)
[2021-05-17] MEDS: ASPIRIN 325 MG TAB PO SCH (10:33)
--- NOTE | 2021-05-17 11:32 | Progress Note ---
Assessment and Plan Please see detailed consultation from yesterday. Given left atrial thrombus and recent mitral valve replacement, will proceed with transesophageal echocardiography in a.m. Continue IV heparin for now. After NICKY, if no further procedures are needed, would initiate NOAC therapy. Discussed with patient at length. - Patient Problems (1) History of coronary artery disease Current Visit: Yes Status: Acute (2) Intracardiac thrombus Current Visit: Yes Status: Acute (3) Valvular heart disease Current Visit: Yes Status: Acute (4) H/O acute myocardial infarction Current Visit: No Status: Chronic (5) HTN (hypertension) Current Visit: No Status: Chronic Qualifiers: Hypertension type: essential hypertension Qualified Code(s): I10 - Essential (primary) hypertension (6) Medical non-compliance Current Visit: No Status: Chronic (7) Moderate to severe mitral regurgitation Current Visit: No Status: Chronic Subjective Date of service: 05/17/21 Interval history: No complaints. Objective Vital Signs Temp Pulse Resp Resp BP Pulse Ox 05/17/21 09:23 96 05/17/21 08:11 98.2 F 75 19 133/80 97 05/17/21 04:25 98.0 F 76 18 114/75 95 05/16/21 23:32 97.8 F 76 19 129/88 97 05/16/21 21:28 70 05/16/21 20:23 99.2 F 70 19 119/80 97 05/16/21 19:21 20 05/16/21 19:00 117/75 99 05/16/21 18:00 117/75 98 05/16/21 17:00 131/57 100 05/16/21 16:00 16 131/79 98 05/16/21 15:30 13 134/73 100 05/16/21 14:30 80 17 122/71 98 05/16/21 14:00 85 14 136/74 99 05/16/21 13:30 79 17 138/82 99 05/16/21 13:00 74 13 133/81 100 05/16/21 12:30 72 16 128/79 99 05/16/21 12:16 72 15 131/79 98 05/16/21 12:00 78 18 136/80 99 - Labs and Meds Cardiac Enzymes 05/17/21 Range/Units 04:43 AST 18 (5-40) units/L Coagulation 05/16/21 Range/Units 11:08 PT 13.5 (12.2-14.9) Sec. INR 0.97 (0.87-1.13) APTT 28.6 (24.2-36.6) Sec. CBC 05/17/21 Range/Units 04:43 WBC 8.2 (4.5-11.0) K/mm3 RBC 4.61 (3.65-5.03) M/mm3 Hgb 13.1 (11.8-15.2) gm/dl Hct 39.0 (35.5-45.6) % Plt Count 200 (140-440) K/mm3 Lymph # (Auto) 2.6 (1.2-5.4) K/mm3 [place] # (Auto) 0.6 (0.0-0.8) K/mm3 Eos # (Auto) 0.6 H (0.0-0.4) K/mm3 Baso # (Auto) 0.1 (0.0-0.1) K/mm3 Comprehensive Metabolic Panel 05/17/21 Range/Units 04:43 Sodium 140 (137-145) mmol/L Potassium 3.5 L (3.6-5.0) mmol/L Chloride 107.9 H (98-107) mmol/L Carbon Dioxide 23 (22-30) mmol/L BUN 11 (9-20) mg/dL Creatinine 1.3 (0.8-1.3) mg/dL Glucose 119 H (75-100) mg/dL Calcium 8.2 L (8.4-10.2) mg/dL AST 18 (5-40) units/L ALT 25 (7-56) units/L Alkaline Phosphatase 87 (35-129) units/L Total Protein 6.2 L (6.3-8.2) g/dL Albumin 3.5 L (3.9-5) g/dL
--- NOTE | 2021-05-17 13:15 | Electrocardiograph Report ---
[facility] Test Date: 2021-05-16 Test Time: 07:29:07 Pat Name: SIN MCNEIL Department: Room: A472 Gender: M Yard Attendant: JESUS : 1965 Requested By: ED DOC Order Number: [id number] Reading MD: Williams Storm Measurements Intervals [place] Rate: 70 P: 44 [place]: 206 QRS: 73 QRSD: 107 T: 81 QT: 438 QTc: 475 Interpretive Statements Sinus rhythm Borderline prolonged [place] interval No previous ECG available for comparison Electronically Signed On 05-17-2021 13:15:24 EDT by Williams Storm
[2021-05-18 05:45] LABS: Hematocrit 37.6 % (35.5-45.6); Hemoglobin 12.7 gm/dl (11.8-15.2)
--- NOTE | 2021-05-18 07:39 | Progress Note ---
Assessment and Plan Assessment and plan: Intracardiac thrombus Acute on chronic systolic heart failure. Echocardiogram performed in August 2018 revealed an ejection fraction of 4550 percent with severe MR Coronary artery disease. In July 2017, he suffered a STEMI and received PCI to his RCA. In July 2018, he presented with NSTEMI and received PCI to OM1. On 09/14/2018, he had a negative stress test. Severe mitral regurgitation Hypertension 05/17/2021. Continue IV heparin drip. Await cardiology consultation. 05/18/2021. Given left atrial thrombus and recent mitral valve replacement, cardiology will proceed with transesophageal echocardiography this a.m. Continue IV heparin for now. After NICKY, if no further procedures are needed, would initiate NOAC therapy. BP well controlled. History Interval history: No new issues overnight Hospitalist Physical - Constitutional Vitals: Temp Pulse Resp BP Pulse Ox 97.9 F 78 18 128/87 98 05/18/21 04:37 05/18/21 04:37 05/18/21 04:37 05/18/21 04:37 05/18/21 04:37 General appearance: Present: mild distress - EENT Eyes: Present: PERRL, EOM intact ENT: hearing intact, clear oral mucosa, dentition normal - Neck Neck: Present: supple, normal ROM - Respiratory Respiratory effort: normal Respiratory: bilateral: CTA - Cardiovascular Rhythm: regular Heart Sounds: Present: S1 & S2. Absent: gallop, rub - Extremities Extremities: no ischemia, No edema, Full ROM - Abdominal General gastrointestinal: soft, non-tender, non-distended, normal bowel sounds - Integumentary Integumentary: Present: clear, warm, dry - Neurologic Neurologic: CNII-XII intact, moves all extremities HEART Score - HEART Score EKG: Normal Age: 45-65 Risk factors: > 3 risk factors or hx of atherosclerotic disease Troponin: Troponin T < 0.010 ng/mL (0.00-0.029) 05/16/21 14:18 Troponin: < normal limit - Critical Actions Critical Actions: 0-3 pts:0.9-1.7%risk of adverse cardiac event.Candidate for discharge Results - Labs CBC & Chem 7: 05/18/21 05:12 05/17/21 04:43 Labs: Laboratory Last Values WBC 8.2 K/mm3 (4.5-11.0) 05/17/21 04:43 RBC 4.61 M/mm3 (3.65-5.03) 05/17/21 04:43 Hgb 12.7 gm/dl (11.8-15.2) 05/18/21 05:12 Hct 37.6 % (35.5-45.6) 05/18/21 05:12 MCV 85 fl (84-94) 05/17/21 04:43 MCH 29 pg (28-32) 05/17/21 04:43 MCHC 34 % (32-34) 05/17/21 04:43 RDW 14.2 % (13.2-15.2) 05/17/21 04:43 Plt Count 197 K/mm3 (140-440) 05/18/21 05:12 Lymph % (Auto) 31.6 % (13.4-35.0) 05/17/21 04:43 [place] % (Auto) 6.8 % (0.0-7.3) 05/17/21 04:43 Eos % (Auto) 7.5 % (0.0-4.3) H 05/17/21 04:43 Baso % (Auto) 1.0 % (0.0-1.8) 05/17/21 04:43 Lymph # (Auto) 2.6 K/mm3 (1.2-5.4) 05/17/21 04:43 [place] # (Auto) 0.6 K/mm3 (0.0-0.8) 05/17/21 04:43 Eos # (Auto) 0.6 K/mm3 (0.0-0.4) H 05/17/21 04:43 Baso # (Auto) 0.1 K/mm3 (0.0-0.1) 05/17/21 04:43 Seg Neutrophils % 53.1 % (40.0-70.0) 05/17/21 04:43 Seg Neutrophils # 4.4 K/mm3 (1.8-7.7) 05/17/21 04:43 PT 13.5 Sec. (12.2-14.9) 05/16/21 11:08 INR 0.97 (0.87-1.13) 05/16/21 11:08 APTT 28.6 Sec. (24.2-36.6) 05/16/21 11:08 Heparin Anti-Xa Level 0.45 U.I./ml (0.3-0.7) 05/17/21 14:28 Sodium 140 mmol/L (137-145) 05/17/21 04:43 Potassium 3.5 mmol/L (3.6-5.0) L 05/17/21 04:43 Chloride 107.9 mmol/L (98-107) H 05/17/21 04:43 Carbon Dioxide 23 mmol/L (22-30) 05/17/21 04:43 Anion Gap 13 mmol/L 05/17/21 04:43 BUN 11 mg/dL (9-20) 05/17/21 04:43 Creatinine 1.3 mg/dL (0.8-1.3) 05/17/21 04:43 Estimated GFR > 60 ml/min 05/17/21 04:43 BUN/Creatinine Ratio 8 % 05/17/21 04:43 Glucose 119 mg/dL (75-100) H 05/17/21 04:43 Calcium 8.2 mg/dL (8.4-10.2) L 05/17/21 04:43 Total Bilirubin 0.30 mg/dL (0.1-1.2) 05/17/21 04:43 AST 18 units/L (5-40) 05/17/21 04:43 ALT 25 units/L (7-56) 05/17/21 04:43 Alkaline Phosphatase 87 units/L (35-129) 05/17/21 04:43 Troponin T < 0.010 ng/mL (0.00-0.029) 05/16/21 14:18 Total Protein 6.2 g/dL (6.3-8.2) L 05/17/21 04:43 Albumin 3.5 g/dL (3.9-5) L 05/17/21 04:43 Albumin/Globulin Ratio 1.3 % 05/17/21 04:43 Steiner/IV: Voiding Method Urinal Active Medications - Current Medications Current Medications: Generic Name Dose Route Start Last Admin Trade Name Freq PRN Reason Stop Dose Admin Acetaminophen 650 mg 05/16/21 12:15 Acetaminophen 325 Mg Tab PO Q4H PRN Pain MILD(1-3)/Fever >100.5/ADRIAN Albuterol 2.5 mg 05/16/21 12:15 Albuterol 2.5 Mg/3 Ml Nebu IH Q4HRT PRN Shortness Of Breath Aspirin 325 mg 05/17/21 10:00 05/17/21 10:33 Aspirin 325 Mg Tab PO 325 mg QDAY MURALI Administration Atorvastatin Calcium 80 mg 05/16/21 22:00 05/17/21 21:50 Atorvastatin 40 Mg Tab PO 80 mg QHS MURALI Administration Heparin Sodium (Porcine) 4,500 unit 05/16/21 11:12 Heparin 10,000 Units/10 Ml Vial 40 unit/kg (4500 unit) IV Q6H PRN Anti-Xa Assay < 0.1 units/ml Heparin Sodium/Sodium Chloride 25,000 unit in 500 mls @ 30 mls/hr 05/16/21 1 2:00 05/17/21 19:19 Heparin/ 0.45% Nacl-25,000 Unit/500 Ml IV 1,400 units/hr TITR MURALI 28 mls/hr Administration Protocol 1,500 UNITS/HR Ondansetron HCl 4 mg 05/16/21 12:15 Ondansetron 4 Mg/2 Ml Inj IV Q8H PRN Nausea And Vomiting Sodium Chloride 10 ml 05/16/21 22:00 05/17/21 21:50 Sodium Chloride 0.9% 10 Ml Flush Syringe IV 10 ml BID MURALI Administration Sodium Chloride 10 ml 05/16/21 12:15 Sodium Chloride 0.9% 10 Ml Flush Syringe IV PRN PRN LINE FLUSH
[2021-05-18] MEDS ORDERED: BENZOCAINE 20% TOP SPRAY 0.5 ML UNIT DOSE MM NR (09:00)
[2021-05-18] MEDS ORDERED: SODIUM CHLORIDE 0.9% 1000 ML 1,000 ML IV SCH (09:00)
[2021-05-18] MEDS ORDERED: propofoL 200 MG/20 ML VIAL IV ONE ×2 (10:13)
--- NOTE | 2021-05-18 10:19 | Anesthesia Day of Surgery ---
Anesthesia Day of Surgery - Day of Surgery Patient Examined: Yes Patient H&P Reviewed: Yes Patient is NPO: Yes
--- NOTE | 2021-05-18 10:24 | Anesthesia Consultation ---
Anesthesia Consult and Med Hx Date of service: 05/18/21 - Airway Anesthetic Teeth Evaluation: Poor, Chipped ROM Head & Neck: Adequate Mental/Hyoid Distance: Adequate Mallampati Class: Class II Intubation Access Assessment: Probably Good - Pre-Operative Health Status ASA Pre-Surgery Classification: ASA4 Proposed Anesthetic Plan: MAC (GA if needed) - Pulmonary Hx Smoking: Yes (quit jul 2017) Hx Asthma: Yes (childhood) SOB: Yes (FELIX/Fatigue) COPD: No Hx Pneumonia: Yes - Cardiovascular System Hx Hypertension: Yes (CHF) Hx Coronary Artery Disease: Yes (CABG/MVR [id number]) Hx Heart Attack/AMI: Yes (2016,2017) Hx Angina: Yes Hx Cardia Arrhythmia: Yes (Wears LifeVest) Hx Internal Defibrillator: Yes (Being evaluated for one) Hx Valvular Heart Disease: Yes (MVR) - Endocrine Hx Renal Disease: Yes Hx End Stage Renal Disease: No - Hematic Hx Sickle Cell Disease: No - Other Systems Hx Obesity: Yes - Additional Comments Anesthesia Medical History Comments: Has LA thrombus
--- NOTE | 2021-05-18 11:02 | Progress Note ---
Assessment and Plan pt lance showed no cardiac source of thrombosis and will discharge home today and followup with primary glass technician dr wallace - Patient Problems (1) History of coronary artery disease Current Visit: Yes Status: Chronic (2) Hypertension Current Visit: Yes Status: Chronic Qualifiers: Hypertension type: essential hypertension Qualified Code(s): I10 - Essential (primary) hypertension (3) Intracardiac thrombus Current Visit: Yes Status: Resolved (4) Valvular heart disease Current Visit: Yes Status: Chronic (5) CHF (congestive heart failure) Current Visit: No Status: Chronic Qualifiers: Heart failure type: systolic Heart failure chronicity: acute on chronic Qualified Code(s): I50.23 - Acute on chronic systolic (congestive) heart failure Subjective Date of service: 05/18/21 Principal diagnosis: suspected left atrium thrombosis Interval history: no sob or chest pain Objective Vital Signs Temp Temp Pulse Pulse Pulse Pulse Pulse 05/18/21 10:49 97.3 F L 86 05/18/21 10:30 99 H 05/18/21 10:28 77 05/18/21 10:23 72 05/18/21 09:22 80 05/18/21 07:57 05/18/21 07:52 97.9 F 76 05/18/21 04:37 97.9 F 78 05/17/21 23:26 97.9 F 79 05/17/21 23:00 75 05/17/21 22:00 05/17/21 21:00 74 05/17/21 20:14 98.3 F 75 05/17/21 19:00 05/17/21 13:00 74 Resp Resp Resp Resp Resp BP BP 05/18/21 10:49 16 05/18/21 10:30 18 158/75 05/18/21 10:28 18 05/18/21 10:23 18 05/18/21 09:22 18 05/18/21 07:57 05/18/21 07:52 19 131/82 05/18/21 04:37 18 128/87 05/17/21 23:26 18 114/73 05/17/21 23:00 05/17/21 22:00 05/17/21 21:00 05/17/21 20:14 18 133/86 05/17/21 19:00 20 05/17/21 13:00 BP BP Pulse Ox Pulse Ox Pulse Ox Pulse Ox 05/18/21 10:49 152/72 100 05/18/21 10:30 100 05/18/21 10:28 157/91 100 05/18/21 10:23 152/94 100 05/18/21 09:22 157/94 100 05/18/21 07:57 100 05/18/21 07:52 96 05/18/21 04:37 98 05/17/21 23:26 94 05/17/21 23:00 05/17/21 22:00 98 05/17/21 21:00 05/17/21 20:14 96 05/17/21 19:00 05/17/21 13:00 - Physical Examination General: Appears Well, No Apparent Distress HEENT: Positive: PERRL Neck: Positive: neck supple Cardiac: Positive: Reg Rate and Rhythm Lungs: Positive: clear to auscultation Neuro: Positive: Grossly Intact Abdomen: /Rectal: Normal Prostate, No Masses Skin: Musculoskeletal: No Fluid Collection, No Pain, Normal Range of Motion Gait: Normal Gait Extremities: Absent: edema - Labs and Meds CBC 05/18/21 Range/Units 05:12 Hgb 12.7 (11.8-15.2) gm/dl Hct 37.6 (35.5-45.6) % Plt Count 197 (140-440) K/mm3 - Imaging and Cardiology LANCE: report reviewed (no clot on mitral valve and no clot on left atrium )
[2021-05-18 11:25] VITALS: BP 130/71
--- NOTE | 2021-05-18 11:48 | Discharge Summary ---
Providers - Providers Date of Admission: 05/16/21 12:15 Date of discharge: 05/18/21 Attending physician: KCAY ZABALA 05/16/21 11:14 Consult to Physician [CONS] Routine Comment: Consulting Provider: KEV PAREDES Physician Instructions: Reason For Exam: Blood Clot seen on outpatient Echo Primary care physician: AGRICULTURE ENGINEER Hospitalization Reason for admission: Intracardiac thrombus Condition: Fair Hospital course: 55 YO Male with HTN, NC, Systolic CHF with LifeVest in place, Asthma, CAD S/P Stent Placement, Valvular Heart Disease S/P Valve replacement presents to ED for evaluation. 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 Patient was notified by his zoo veterinarian the night STEM SETTER and instructed to seek further care due to the incidental finding of an intracardiac thrombus. Admission diagnosis intracardiac thrombus, acute on chronic systolic heart failure, coronary artery disease, severe mitral regurgitation and hypertension. The patient was seen by cardiology in consultation. Patient was placed on anticoagulation with heparin drip. Hospital course: 05/17/2021. Continue IV heparin drip. Await cardiology consultation. 05/18/2021. Given left atrial thrombus and recent mitral valve replacement, cardiology will proceed with transesophageal echocardiography this a.m. Continue IV heparin for now. NICKY was completed which did not reveal a thrombus. Cardiology reports patient can be discharged home. Dedicated discharge time 35 minutes. Disposition: [id number] TO HOME OR SELFCARE Final Discharge Diagnosis (Prints w/discharge instructions): Chronic systolic heart failure, coronary artery disease, severe mitral regurgitation, hypertension - Discharge Diagnoses (1) Abnormal echocardiogram Status: Acute (2) CHF (congestive heart failure) Status: Acute Qualifiers: Heart failure type: systolic Heart failure chronicity: acute Qualified Code(s): I50.21 - Acute systolic (congestive) heart failure (3) History of coronary artery disease Status: Chronic (4) Hypertension Status: Chronic Qualifiers: Hypertension type: essential hypertension (5) Valvular heart disease Status: Chronic Core Measure Documentation - Palliative Care Palliative Care/ Comfort Measures: Not Applicable - Core Measures Any of the following diagnoses?: heart failure - Heart Failure Discharge Requirements DANIELLE/ARB for LVSD if EF <40%: Yes Beta av at discharge: Yes Exam - Constitutional Vitals: Temp Pulse Resp BP Pulse Ox 97.3 F L 86 18 130/71 100 06/28/21 10:49 05/18/21 11:09 05/18/21 11:09 05/18/21 11:09 05/18/21 11:09 General appearance: Present: no acute distress, well-nourished - EENT Eyes: Present: PERRL ENT: hearing intact, clear oral mucosa - Neck Neck: Present: supple, normal ROM - Respiratory Respiratory effort: normal Respiratory: bilateral: CTA - Cardiovascular Heart Sounds: Present: S1 & S2. Absent: rub, click - Extremities Extremities: pulses symmetrical, No edema Peripheral Pulses: within normal limits - Abdominal General gastrointestinal: Present: soft, non-tender, non-distended, normal bowel sounds Male genitourinary: Present: normal - Integumentary Integumentary: Present: clear, warm, dry - Musculoskeletal Musculoskeletal: gait normal, strength equal bilaterally - Psychiatric Psychiatric: appropriate mood/affect, intact judgment & insight - Neurologic Neurologic: CNII-XII intact, moves all extremities Plan Activity: advance as tolerated Weight Bearing Status: Weight Bear as Tolerated Diet: low fat, low cholesterol, low salt Follow up with: PRIMARY CAREMD [Primary Care Provider] - 7 Days PAULIE KENNEY MD [Staff Physician] - 7 Days Prescriptions: Sacubitril/Valsartan [Entresto 24 - 26 mg] 1 tab PO BID #60 ISOSORBIDE MONOnitrate [Imdur ER] 30 mg PO BID #60 Potassium Chloride [K-Dur] 20 meq PO QDAY #30 Furosemide [Lasix TAB] 40 mg PO QDAY #30 AtorvaSTATin [Lipitor] 40 mg PO QHS #30 Metoprolol Succinate [Toprol Xl] 25 mg PO QDAY #30
[2021-05-18] MEDS ORDERED: METOPROLOL SUCCINATE XL 25 MG TAB PO SCH (12:00)
[2021-05-18] MEDS ORDERED: FUROSEMIDE 40 MG TAB PO SCH (12:00)
[2021-05-18] MEDS ORDERED: POTASSIUM CHLORIDE ER 20 MEQ TAB PO SCH (12:00)
[2021-05-18] MEDS ORDERED: FERROUS SULFATE 325 MG TAB PO SCH (12:00)
[2021-05-18] MEDS: ASPIRIN 325 MG TAB PO SCH (12:03)
--- NOTE | 2021-05-18 12:42 | Post Anesthesia Evaluation ---
- Post Anesthesia Evaluation Patient Participated: Yes Airway Patent: Yes Stable Respiratory Function: Yes Nausea/Vomiting: No Temp > 96.8F: Yes Pain Manageable: Yes Adequeate Hydration: Yes Anesthesia Complications: No Block Receding Appropriately: Not Applicable Patient on Ventilator: No
[2021-05-18] MEDS ORDERED: SACUBITRIL/VALSARTAN 24-26 MG TAB PO SCH (22:00)
[2021-05-19] MEDS ORDERED: FUROSEMIDE 20 MG TAB PO SCH (10:00)
== END 2021-05-18 17:47 | disposition home or self-care (01) | DRG 292 ==
LOC: ED 07:14 → 4A 12:15
PROVIDERS: ADMIT Internal Medicine; ATTEND Hospitalist
PROC: B245ZZ4 Ultrasonography of Left Heart, Transesophageal (ICD-10-PCS; principal; 2021-05-17)
DX: I11.0 Hypertensive heart disease with heart failure (principal); I38 Endocarditis, valve unspecified; I50.23 Acute on chronic systolic (congestive) heart failure; I51.3 Intracardiac thrombosis, not elsewhere classified; I34.0 Nonrheumatic mitral (valve) insufficiency; R93.41 Abnormal radiologic findings on diagnostic imaging of renal pelvis, ureter, or bladder; I25.110 Atherosclerotic heart disease of native coronary artery with unstable angina pectoris; E66.9 Obesity, unspecified; J45.909 Unspecified asthma, uncomplicated; Z95.5 Presence of coronary angioplasty implant and graft; Z95.4 Presence of other heart-valve replacement; Z79.899 Other long term (current) drug therapy; Z87.891 Personal history of nicotine dependence; Z95.1 Presence of aortocoronary bypass graft; Z68.34 Body mass index [BMI] 34.0-34.9, adult; I25.2 Old myocardial infarction; Z91.19 Patient's noncompliance with other medical treatment and regimen; Z82.49 Family history of ischemic heart disease and other diseases of the circulatory system
CPT/HCPCS: 36415; 71046; 80053; 82962; 84484; 85014; 85018; 85025; 85049; 85520; 85610; 85730; 93005; 93312; 93320; 93325; 96365; G0378; A9270-GY; J1644; J2704

== ENCOUNTER 2021-07-07 10:47 | Inpatient (IN) | payer MEDICAID ==
--- NOTE | 2021-07-07 10:36 | Anesthesia Consultation ---
Anesthesia Consult and Med Hx Date of service: 07/07/21 - Airway Anesthetic Teeth Evaluation: Poor (multiple broken off, missing teeth) ROM Head & Neck: Adequate Mental/Hyoid Distance: Adequate Mallampati Class: Class II Intubation Access Assessment: Probably Good - Pre-Operative Health Status ASA Pre-Surgery Classification: ASA4 Proposed Anesthetic Plan: MAC - Pulmonary Hx Smoking: Yes (quit jul 2017) Hx Asthma: Yes (childhood) SOB: Yes (FELIX/Fatigue) COPD: No Hx Pneumonia: Yes - Cardiovascular System Hx Hypertension: Yes (CHF) Hx Coronary Artery Disease: Yes (CABG/MVR 07/2020) Hx Heart Attack/AMI: Yes (2016,2017) Hx Angina: Yes Hx Cardia Arrhythmia: Yes (Wears LifeVest) Hx Valvular Heart Disease: Yes (MVR) - Endocrine Hx Renal Disease: Yes Hx End Stage Renal Disease: No - Hematic Hx Sickle Cell Disease: No - Other Systems Hx Obesity: Yes (BMI 34.2)
--- NOTE | 2021-07-07 10:37 | Anesthesia Day of Surgery ---
Anesthesia Day of Surgery - Day of Surgery Patient Examined: Yes Patient H&P Reviewed: Yes Patient is NPO: Yes Beta Blockers: Yes
[~2021-07-07 10:47] MED LIST: HYDROmorphone 1 MG/1 ML INJ ONE; MIDAZOLAM 2 MG/2 ML INJ ONE; SODIUM CHLORIDE IRRI 1000 ML 1,000 ML, .VANCOMYCIN VIAL 1,000 MG IR NR
[2021-07-07 11:17] LABS: Hematocrit 41.7 % (35.5-45.6); Hemoglobin 13.7 gm/dl (11.8-15.2); Mean Corpuscular HGB Conc 33 % (32-34); Mean Corpuscular Volume 85 fl (84-94); Platelet Count 232 K/mm3 (140-440); Red Cell Distribution Width 14.5 % (13.2-15.2)
[2021-07-07 11:25] LABS: INR 0.92 (0.87-1.13); Partial Thromboplastin Time 25.3 Sec. (24.2-36.6)
[2021-07-07 11:27] LABS: BUN/Creatinine Ratio 9; Blood Urea Nitrogen 10 mg/dL (9-20); Calcium 9.2 mg/dL (8.4-10.2); Hemolysis Index 40
[2021-07-07] MEDS ORDERED: SODIUM CHLORIDE 0.9% 1000 ML 1,000 ML ONE (11:50)
[2021-07-07] MEDS ORDERED: LIDOCAINE (1%) 10 MG/1 ML VIAL 20 ML MDV ONE (12:00)
[2021-07-07] MEDS ORDERED: SODIUM CHLORIDE IRRI 500 ML 500 ML IR ONE (12:00)
[2021-07-07] MEDS ORDERED: ceFAZolin/Water 2 GM/20 ML 2 GM/20 ML SYRINGE IV ONE (12:01)
[2021-07-07] MEDS ORDERED: BUPIVACAINE/PF (0.5%) 5 MG/1 ML 30 ML VIAL INFILTRATI ONE (12:01)
[2021-07-07] MEDS ORDERED: SODIUM CHLORIDE 0.9% 500 ML 500 ML ONE (12:07)
[2021-07-07] MEDS ORDERED: SODIUM CHLORIDE 0.9% 1000 ML 1,000 ML IV SCH (13:00)
[2021-07-07] MEDS ORDERED: .VANCOMYCIN VIAL 1,000 MG in SODIUM CHLORIDE IRRI 1000 ML 1,000 ML IRRIGATION ONE (13:08)
--- NOTE | 2021-07-07 13:52 | Short Stay Summary ---
<AUREA GOLD - Last Filed: 07/07/21 13:48> Short Stay Documentation Date of service: 07/07/21 - History Principal diagnosis: ICD placment H&P: obtained from office - Allergies and Medications Current Medications: Allergies No Known Allergies Allergy (Verified 10/04/18 21:59) Home Medications Medication Instructions Recorded Confirmed Last Taken Type Cholecalciferol (Vitamin D3) 2,000 unit PO QDAY 05/16/21 05/16/21 Unknown History [Vitamin D3 2,000 UNIT CAP] Ferrous Sulfate [Feosol 325 MG tab] 325 mg PO QDAY 05/16/21 05/16/21 Unknown History Furosemide [Lasix TAB] 40 mg PO QDAY 05/16/21 05/16/21 Unknown History Aspirin 325 mg PO QDAY tablet 05/18/21 Unknown Rx AtorvaSTATin [Lipitor] 40 mg PO QHS #30 05/18/21 Unknown Rx Benzocaine 20% Topical [place] 3 spray MM PREOP packet 05/18/21 Unknown Rx [Hurricaine One 20% Topical [place]] Furosemide [Lasix TAB] 40 mg PO QDAY #30 05/18/21 Unknown Rx ISOSORBIDE MONOnitrate [Imdur ER] 30 mg PO BID #60 05/18/21 Unknown Rx Metoprolol Succinate [Toprol Xl] 25 mg PO QDAY #30 05/18/21 Unknown Rx Potassium Chloride [K-Dur] 20 meq PO QDAY #30 05/18/21 Unknown Rx Sacubitril/Valsartan [Entresto 24 1 tab PO BID #60 05/18/21 Unknown Rx - 26 mg] Active Medications Sodium Chloride (Nacl 0.9% 1000 Ml) 1,000 mls @ 42 mls/hr IV DIRECT MURALI Last Admin: 07/07/21 12:30 Dose: 300 mls Documented by: - Physical exam Integumentary: other (clean, intact, tegaderm placed, no bleeding or hematoma) - Brief post op/procedure progress note Date of procedure: 07/07/21 Pre-op diagnosis: ICD placement Post-op diagnosis: same Estimated blood loss: minimal - Disposition Condition at discharge: Good - Discharge Diagnoses (1) ICD (implantable cardioverter-defibrillator), single, in situ Status: Acute Short Stay Discharge Plan Activity: advance as tolerated Diet: low fat, low cholesterol, low salt Wound: keep clean and dry Follow up with: PRIMARY CARE, [Primary Care Provider] - 7 Days <FRANKLIN ZABALA - Last Filed: 07/09/21 09:20> Short Stay Documentation - History Principal diagnosis: ICD placement - Allergies and Medications Current Medications: Allergies No Known Allergies Allergy (Verified 10/04/18 21:59) Home Medications Medication Instructions Recorded Confirmed Last Taken Type Cholecalciferol (Vitamin D3) 2,000 unit PO QDAY 05/16/21 07/07/21 06/23/21 History [Vitamin D3 2,000 UNIT CAP] Ferrous Sulfate [Feosol 325 MG tab] 325 mg PO QDAY 05/16/21 07/07/21 07/06/21 09:00 History Furosemide [Lasix TAB] 40 mg PO QDAY 05/16/21 07/07/21 07/06/21 09:00 History Aspirin 325 mg PO QDAY tablet 05/18/21 07/07/21 07/06/21 Rx AtorvaSTATin [Lipitor] 40 mg PO QHS #30 05/18/21 07/07/21 07/06/21 21:00 Rx ISOSORBIDE MONOnitrate [Imdur ER] 30 mg PO BID #60 05/18/21 07/07/21 07/06/21 21:00 Rx Metoprolol Succinate [Toprol Xl] 25 mg PO QDAY #30 05/18/21 07/07/21 07/06/21 09:00 Rx Potassium Chloride [K-Dur] 20 meq PO QDAY #30 05/18/21 07/07/21 07/06/21 09:00 Rx Sacubitril/Valsartan [Entresto 24 1 tab PO BID #60 05/18/21 07/07/21 07/06/21 21:00 Rx - 26 mg] Active Medications Acetaminophen (Acetaminophen 325 Mg Tab) 650 mg PO Q4H PRN PRN Reason: Pain MILD(1-3)/Fever >100.5/ADRIAN Aspirin (Aspirin 325 Mg Tab) 325 mg PO QDAY [facility] Last Admin: 07/08/21 10:37 Dose: 325 mg Documented by: Atorvastatin Calcium (Atorvastatin 40 Mg Tab) 40 mg PO QHS [facility] Last Admin: 07/08/21 21:46 Dose: 40 mg Documented by: Furosemide (Furosemide 40 Mg Tab) 80 mg PO QDAY [facility] Sodium Chloride (Nacl 0.9% 1000 Ml) 1,000 mls @ 42 mls/hr IV DIRECT [facility] Last Admin: 07/07/21 12:30 Dose: 300 mls Documented by: Isosorbide Mononitrate (Isosorbide Mononitrate Er 30 Mg Tab) 30 mg PO BID [facility] Last Admin: 07/08/21 21:46 Dose: 30 mg Documented by: Metoprolol Succinate (Metoprolol Succinate Xl 25 Mg Tab) 25 mg PO QDAY [facility] Last Admin: 07/08/21 10:25 Dose: 25 mg Documented by: Ondansetron HCl (Ondansetron 4 Mg/2 Ml Inj) 4 mg IV Q8H PRN PRN Reason: Nausea And Vomiting Last Admin: 07/07/21 22:45 Dose: 4 mg Documented by: Oxycodone/Acetaminophen (Oxycodone /Acetaminophen 5-325mg Tab) 1 tab PO Q6H PRN PRN Reason: Pain, Moderate (4-6) Last Admin: 07/08/21 21:46 Dose: 1 tab Documented by: Potassium Chloride (Potassium Chloride Er 20 Meq Tab) 20 meq PO QDAY [facility] Last Admin: 07/08/21 10:25 Dose: 20 meq Documented by: Sodium Chloride (Sodium Chloride 0.9% 10 Ml Flush Syringe) 10 ml IV BID [facility] Last Admin: 07/08/21 21:47 Dose: 10 ml Documented by: Sodium Chloride (Sodium Chloride 0.9% 10 Ml Flush Syringe) 10 ml IV PRN PRN PRN Reason: LINE FLUSH
[2021-07-07] MEDS ORDERED: FUROSEMIDE 40 MG/4 ML INJ ONE (13:58)
[2021-07-07] MEDS ORDERED: ACETAMINOPHEN 325 MG TAB PO PRN (15:00)
[2021-07-07] MEDS ORDERED: ONDANSETRON 4 MG/2 ML INJ IV PRN (15:00)
--- NOTE | 2021-07-07 15:04 | XRay Report ---
XR chest 1V ap INDICATION / CLINICAL INFORMATION: Pacemaker Postop COMPARISON: May 16 2021 FINDINGS: SUPPORT DEVICES: Interval placement of left transvenous AICD with lead terminating in the right ventr icular apex. HEART / MEDIASTINUM: No significant abnormality. LUNGS / PLEURA: Lungs are clear. Costophrenic sulci are sharp. No pneumothorax. ADDITIONAL FINDINGS: No significant additional findings. IMPRESSION: 1. Appropriate appearance of AICD without complication. Signer Name: Tru Lane MD Signed: 07/07/2021 2:59 PM Workstation Name: [email or web address]
[2021-07-07 15:48] LABS: Total Cells Counted 100
[2021-07-07 15:49] LABS: Platelet Estimate Consistent w Auto; RBC Morphology Normal
--- NOTE | 2021-07-07 17:51 | Electrocardiograph Report ---
[facility] Test Date: 2021-07-07 Test Time: 11:43:53 Pat Name: SIN MCNEIL Department: Room: A478 Gender: M Transition Coach: MARIAH : 1965 Requested By: PRAFUL SALAS Order Number: [id number] Reading MD: Artur Fernandez Measurements Intervals Saffell Rate: 69 P: 27 HI: 182 QRS: 66 QRSD: 116 T: 74 QT: 435 QTc: 465 Interpretive Statements Sinus rhythm Nonspecific T wave changes Compared to ECG 05/16/2021 07:29:07 No significant change Electronically Signed On 07-07-2021 17:51:02 EDT by Artur Fernandez
[2021-07-07] MEDS: FUROSEMIDE 40 MG/4 ML INJ IV SCH (18:28)
[2021-07-07] MEDS ORDERED: ceFAZolin/NS 1 GM/50 ML 1 GM/50 ML BAG IV SCH (21:00)
[2021-07-07] MEDS: oxyCODONE /ACETAMINOPHEN 5-325MG TAB PO PRN (22:43)
[2021-07-07] MEDS: SACUBITRIL/VALSARTAN 24-26 MG TAB PO SCH (23:42)
[2021-07-08] MEDS: FUROSEMIDE 40 MG/4 ML INJ IV SCH (05:34)
[2021-07-08 05:42] LABS: Hematocrit 41.5 % (35.5-45.6); Hemoglobin 13.7 gm/dl (11.8-15.2); Mean Corpuscular HGB Conc 33 % (32-34); Mean Corpuscular Volume 85 fl (84-94); Platelet Count 225 K/mm3 (140-440); Red Blood Count 4.88 M/mm3 (3.65-5.03); Red Cell Distribution Width 14.2 % (13.2-15.2)
[2021-07-08] MEDS: oxyCODONE /ACETAMINOPHEN 5-325MG TAB PO PRN ×3 (05:47→21:46)
[2021-07-08 06:12] LABS: Calcium 8.9 mg/dL (8.4-10.2)
[2021-07-08] MEDS: METOPROLOL SUCCINATE XL 25 MG TAB PO SCH (10:25)
[2021-07-08] MEDS: ASPIRIN 325 MG TAB PO SCH ×2 (10:25→10:37)
[2021-07-08] MEDS: POTASSIUM CHLORIDE ER 20 MEQ TAB PO SCH (10:25)
[2021-07-08] MEDS: SACUBITRIL/VALSARTAN 24-26 MG TAB PO SCH ×2 (10:26→21:46)
--- NOTE | 2021-07-08 12:13 | Procedure Note ---
DATE OF PROCEDURE: 07/07/2021 PREPROCEDURE DIAGNOSIS: Ischemic cardiomyopathy. TYPE OF PROCEDURE: Single-chamber cardiac defibrillator implantation. DESCRIPTION OF PROCEDURE: The patient was brought to the analytical laboratory technician. The patient was prepped and draped in the usual sterile fashion. Local anesthesia was obtained with lidocaine. Antibiotics were given prior to the procedure for surgical prophylaxis. A 3 cm incision was made over the left deltopectoral groove. Venous access was obtained via axillary vein. The ventricular lead was advanced to the right ventricular apex under fluoroscopy. While observing the diaphragm under fluoroscopy, a 10mV test applied to the lead and excluded diaphragmatic pacing. The lead was then sutured to the fascial plane with Ethibond sutures. Using blunt dissection, a pocket was then produced above the pectoral muscle plane. The pocket was irrigated with antibiotic containing solution. Adequate electrode parameters were confirmed prior to the attachment of the pacemaker pulse generator to the leads. The leads and generator were then inserted into the pocket. Closure was obtained using 2-0, 3-0, and 4-0 Vicryl for the subcuticular closure. The incision was then protected with Steri-Strips, gauze and clear adhesive dressing was applied. COMPLICATIONS: None. ASSESSMENT: Successful single-chamber cardiac defibrillator implantation. PLAN: Follow up for incision check in 8-10 days. TID: [id number] RECEIPT: [id number] MMW/KELTON/AMAN MTDD
--- NOTE | 2021-07-08 13:53 | Progress Note ---
Assessment and Plan HFrEF ICD placement HTN CAD * Patient is s/p ICD placement yesterday.Incision site has intact dressing, shows no signs of bleeding or hematoma. * Patients home meds restarted yesterday * Patient had BLE edema, SOB and orthopnea yesterday prior to procedure. Patient given Lasix 80mg IV BID for diuresis * Patient reports breathing much better and that BLE edema has decreased. Switch to Lasix 80mg PO QD. Recheck BMP in the AM and plan for discharge Patient seen in conjuntion with Dr. Collins who agrees with this plan of care. Plan for discharge tomorrow - Patient Problems (1) ICD (implantable cardioverter-defibrillator), single, in situ Current Visit: Yes Status: Acute (2) CAD (coronary artery disease) Current Visit: No Status: Chronic (3) Heart failure with reduced ejection fraction Current Visit: No Status: Chronic (4) Hyperlipidemia Current Visit: No Status: Chronic Qualifiers: Hyperlipidemia type: mixed hyperlipidemia Qualified Code(s): E78.2 - Mixed hyperlipidemia (5) Hypertension Current Visit: No Status: Chronic Qualifiers: Hypertension type: essential hypertension Subjective Date of service: 07/08/21 Principal diagnosis: ICD placment Interval history: Patient sitting on side of the bed reports feeling much better. sinus 84 with some PVCs on monitor Objective Vital Signs Temp Pulse Pulse Resp BP Pulse Ox 07/08/21 12:39 98.4 F 82 18 129/74 96 07/08/21 10:25 90 114/70 07/08/21 10:00 86 18 98 07/08/21 09:14 98.8 F 90 18 114/70 97 07/08/21 04:16 97.7 F 82 18 105/69 97 07/08/21 02:10 85 97 07/08/21 00:00 97.9 F 90 18 110/74 96 07/07/21 20:39 98.5 F 56 L 20 125/85 97 07/07/21 17:44 85 97 07/07/21 17:30 85 07/07/21 16:25 97.9 F 89 18 131/90 97 07/07/21 15:15 78 14 140/92 98 07/07/21 15:00 98.1 F 70 13 140/65 94 07/07/21 14:30 70 11 L 142/76 94 07/07/21 14:15 76 14 122/86 94 07/07/21 14:00 70 13 126/79 94 - Physical Examination General: Appears Well, No Apparent Distress HEENT: Positive: PERRL Neck: Positive: trachea midline Cardiac: Positive: Reg Rate and Rhythm Lungs: Positive: clear to auscultation, Normal Breath Sounds Neuro: Positive: Grossly Intact Abdomen: Positive: Soft, Active Bowel Sounds Incision: Incision Site (clean, dry, intact, no bleeding, no hematoma) Extremities: Present: upper extr. pulses, lower extr. pulses, edema - Labs and Meds CBC 07/08/21 Range/Units 05:00 WBC 8.9 (4.5-11.0) K/mm3 RBC 4.88 (3.65-5.03) M/mm3 Hgb 13.7 (11.8-15.2) gm/dl Hct 41.5 (35.5-45.6) % Plt Count 225 (140-440) K/mm3 Comprehensive Metabolic Panel 07/08/21 Range/Units 05:00 Sodium 140 (137-145) mmol/L Potassium 3.6 (3.6-5.0) mmol/L Chloride 100.1 (98-107) mmol/L Carbon Dioxide 31 H D (22-30) mmol/L BUN 15 (9-20) mg/dL Creatinine 1.5 H (0.8-1.3) mg/dL Glucose 120 H (75-100) mg/dL Calcium 8.9 (8.4-10.2) mg/dL - Imaging and Cardiology EKG: report reviewed, image reviewed - Telemetry EKG Rhythm: Sinus Rhythm - EKG Sinus rhythms and dysrhythmias: sinus rhythm
[2021-07-09 06:51] LABS: Calcium 8.6 mg/dL (8.4-10.2)
[2021-07-09] MEDS: SACUBITRIL/VALSARTAN 24-26 MG TAB PO SCH ×2 (09:32→10:15)
[2021-07-09] MEDS: METOPROLOL SUCCINATE XL 25 MG TAB PO SCH (09:33)
[2021-07-09] MEDS: POTASSIUM CHLORIDE ER 20 MEQ TAB PO SCH (09:33)
[2021-07-09] MEDS: ASPIRIN 325 MG TAB PO SCH (09:33)
--- NOTE | 2021-07-09 09:58 | Short Stay Summary ---
Short Stay Documentation Date of service: 07/07/21 - History Principal diagnosis: Ischemic Cardiomyopathy Past Medical History: CAD, heart failure, hypertension, hyperlipidemia Past Surgical History: valve replacement, CABG, TURP Social history: smoking (former, quit 2017), alcohol abuse (occasional wine) - Allergies and Medications Current Medications: Allergies No Known Allergies Allergy (Verified 10/04/18 21:59) Home Medications Medication Instructions Recorded Confirmed Last Taken Type Cholecalciferol (Vitamin D3) 2,000 unit PO QDAY 05/16/21 07/07/21 06/23/21 History [Vitamin D3 2,000 UNIT CAP] Ferrous Sulfate [Feosol 325 MG tab] 325 mg PO QDAY 05/16/21 07/07/21 07/06/21 09:00 History Furosemide [Lasix TAB] 40 mg PO QDAY 05/16/21 07/07/21 07/06/21 09:00 History Aspirin 325 mg PO QDAY tablet 05/18/21 07/07/21 07/06/21 Rx AtorvaSTATin [Lipitor] 40 mg PO QHS #30 05/18/21 07/07/21 07/06/21 21:00 Rx ISOSORBIDE MONOnitrate [Imdur ER] 30 mg PO BID #60 05/18/21 07/07/21 07/06/21 21:00 Rx Metoprolol Succinate [Toprol Xl] 25 mg PO QDAY #30 05/18/21 07/07/21 07/06/21 09:00 Rx Potassium Chloride [K-Dur] 20 meq PO QDAY #30 05/18/21 07/07/21 07/06/21 09:00 Rx Sacubitril/Valsartan [Entresto 24 1 tab PO BID #60 05/18/21 07/07/21 07/06/21 21:00 Rx - 26 mg] Active Medications Acetaminophen (Acetaminophen 325 Mg Tab) 650 mg PO Q4H PRN PRN Reason: Pain MILD(1-3)/Fever >100.5/ADRIAN Aspirin (Aspirin 325 Mg Tab) 325 mg PO QDAY [facility] Last Admin: 07/09/21 09:33 Dose: 325 mg Documented by: Atorvastatin Calcium (Atorvastatin 40 Mg Tab) 40 mg PO QHS [facility] Last Admin: 07/08/21 21:46 Dose: 40 mg Documented by: Furosemide (Furosemide 40 Mg Tab) 80 mg PO QDAY [facility] Last Admin: 07/09/21 09:33 Dose: 80 mg Documented by: Sodium Chloride (Nacl 0.9% 1000 Ml) 1,000 mls @ 42 mls/hr IV DIRECT [facility] Last Admin: 07/07/21 12:30 Dose: 300 mls Documented by: Isosorbide Mononitrate (Isosorbide Mononitrate Er 30 Mg Tab) 30 mg PO BID [facility] Last Admin: 07/09/21 09:34 Dose: 30 mg Documented by: Metoprolol Succinate (Metoprolol Succinate Xl 25 Mg Tab) 25 mg PO QDAY [facility] Last Admin: 07/09/21 09:33 Dose: 25 mg Documented by: Ondansetron HCl (Ondansetron 4 Mg/2 Ml Inj) 4 mg IV Q8H PRN PRN Reason: Nausea And Vomiting Last Admin: 07/07/21 22:45 Dose: 4 mg Documented by: Oxycodone/Acetaminophen (Oxycodone /Acetaminophen 5-325mg Tab) 1 tab PO Q6H PRN PRN Reason: Pain, Moderate (4-6) Last Admin: 07/08/21 21:46 Dose: 1 tab Documented by: Potassium Chloride (Potassium Chloride Er 20 Meq Tab) 20 meq PO QDAY [facility] Last Admin: 07/09/21 09:33 Dose: 20 meq Documented by: Sodium Chloride (Sodium Chloride 0.9% 10 Ml Flush Syringe) 10 ml IV BID [facility] Last Admin: 07/09/21 09:34 Dose: 10 ml Documented by: Sodium Chloride (Sodium Chloride 0.9% 10 Ml Flush Syringe) 10 ml IV PRN PRN PRN Reason: LINE FLUSH - Physical exam General appearance: no acute distress Integumentary: no rash, other (incision site clean/dry/intact) HEENT: Atraumatic, EOMI, Mucous membr. moist/pink Lungs: Clear to auscultation Heart: Normal S1, Normal S2, No murmurs Gastrointestinal: normal Extremities: pulses intact, No edema Neurological: Normal tone, Sensation intact - Brief post op/procedure progress note Date of procedure: 07/07/21 Pre-op diagnosis: Ischemic Cardiomyopathy Post-op diagnosis: other (S/p ICD Implantation) Surgeon: PRAFUL SALAS Estimated blood loss: minimal Pathology: none Condition: stable - Hospital course Hospital course: Pt presented for elective ICD implantation in the setting of ischemic cardiomyopathy. S/p successful ICD placement 07/07/2021. Pt tolerated procedure well; however, was noted to be acutely decompensated from a HF standpoint following procedure. He was thus admitted for IV diuresis. He has responded well to diuresis and is currently stable for discharge. Cr stable @ 1.5. Follow-up for incision check in 7 days ([phone]). - Disposition Condition at discharge: Good Disposition: 01 HOME / SELF CARE / HOMELESS - Discharge Diagnoses (1) Automatic implantable cardioverter-defibrillator in situ Status: Chronic Short Stay Discharge Plan Activity: advance as tolerated Diet: low fat, low cholesterol, low salt Wound: per your surgeon's advice Special Instructions: no heavy lifting Follow up with: PRIMARY MD GILDARDO [Primary Care Provider] - 7 Days KEV PAREDES MD [Staff Physician] - 7 Days
[2021-07-09] MEDS ORDERED: FUROSEMIDE 40 MG TAB PO SCH (10:00)
[2021-07-09 11:55] VITALS: BP 104/56
== END 2021-07-09 13:59 | disposition home or self-care (01) | DRG 227 ==
LOC: CATHLABREC 10:47 → UNDOADMOB 15:00 → 4A 15:00 → OBSVTOIN 07-09 12:03 → INTOOBSV 07-09 12:03 → UNDODISIN 07-09 13:59
PROVIDERS: ADMIT Internal Medicine Cardiovascular Disease; ATTEND Internal Medicine Cardiovascular Disease
PROC: 0JH608Z Insertion of Defibrillator Generator into Chest Subcutaneous Tissue and Fascia, Open Approach (ICD-10-PCS; principal; 2021-07-07)
PROC: 02HK3KZ Insertion of Defibrillator Lead into Right Ventricle, Percutaneous Approach (ICD-10-PCS; 2021-07-07)
DX: I25.5 Ischemic cardiomyopathy (principal); I25.10 Atherosclerotic heart disease of native coronary artery without angina pectoris; Z95.5 Presence of coronary angioplasty implant and graft; E66.9 Obesity, unspecified; I25.2 Old myocardial infarction; Z68.32 Body mass index [BMI] 32.0-32.9, adult; Z95.810 Presence of automatic (implantable) cardiac defibrillator; Z87.891 Personal history of nicotine dependence; I11.0 Hypertensive heart disease with heart failure; I50.22 Chronic systolic (congestive) heart failure; E78.5 Hyperlipidemia, unspecified
CPT/HCPCS: 33249; 36415; 71045; 80048; 85007; 85025; 85027; 85610; 85730; 87641; 93005; G0378; A9270-GY; C1722; C1777; C1892; J0690; J1170; J1940; J2250; J2405; J2704; J3370; J7030; J7040; J7120; Q9967